=== PATIENT | female | born 1980 | race Caucasian/White ===

== ENCOUNTER 2017-08-18 10:28 | Inpatient (IN) | payer OTHER ==
[2017-08-18] MEDS: ONDANSETRON 4 MG INJ IV (12:25)
[2017-08-18] MEDS ORDERED: ZOLPIDEM 5 MG TAB PO (12:30)
[2017-08-18] MEDS ORDERED: GLUCAGON 1 MG INJ IM (13:00)
[2017-08-18] MEDS ORDERED: DEXTROSE 50% 50 ML SYRINGE IV (13:00)
[2017-08-18] MEDS ORDERED: GLUCOSE GEL 15 GRAM TUBE PO (13:00)
[2017-08-18] MEDS ORDERED: GLUCOSE GEL 15 GRAM TUBE BUCCAL (13:00)
[2017-08-18 13:20] LABS: ADD MAN DIFF? NO
[2017-08-18 13:23] LABS: BASOPHIL # 0.1 10^3/ul (0.0-0.1); BASOPHILS % 1.1 % (0.0-2.0); EOSINOPHILS # 0.1 10^3/ul (0.0-0.5); EOSINOPHILS % 1.5 % (0.0-7.0); HEMATOCRIT 29.2 % (37.0-47.0); HEMOGLOBIN 9.3 g/dl (12.0-16.0); LYMPHOCYTES # 1.2 10^3/ul (0.8-2.9); LYMPHOCYTES % 27.2 % (15.0-51.0); MEAN CORPUSCULAR HEMOGLOBIN 24.6 pg (29.0-33.0); MEAN CORPUSCULAR HGB CONC 31.8 g/dl (32.0-37.0); MEAN CORPUSCULAR VOLUME 77.2 fl (82.0-101.0); MEAN PLATELET VOLUME 9.1 fl (7.4-10.4); MONOCYTE # 0.2 10^3/ul (0.3-0.9); MONOCYTES % 5.3 % (0.0-11.0); NEUTROPHIL # 2.9 10^3/ul (1.6-7.5); NEUTROPHILS % 64.7 % (39.0-77.0); PLATELET COUNT 209 10^3/UL (140-415); RED BLOOD COUNT 3.78 10^6/ul (4.20-5.40); RED CELL DISTRIBUTION WIDTH 13.9 % (11.5-14.5)
[2017-08-18 13:23] LABS: WHITE BLOOD COUNT 4.5 10^3/ul (4.8-10.8)
[2017-08-18 13:29] LABS: POSITIVE DIFF @See below
[2017-08-18 13:34] LABS: HEMOGLOBIN A1C 11.8 % (0-5.9)
[2017-08-18 13:48] LABS: ALANINE AMINOTRANSFERASE 25 IU/L (13-69); ALBUMIN 3.2 g/dl (3.3-4.9); ALBUMIN/GLOBULIN RATIO 0.94; ALKALINE PHOSPHATASE 102 IU/L (42-121); ANION GAP 14 (8-16); ASPARTATE AMINO TRANSFERASE 32 IU/L (15-46); BILIRUBIN,INDIRECT 0.2 mg/dl (0-1.1); BILIRUBIN,TOTAL 0.2 mg/dl (0.2-1.3); BLOOD UREA NITROGEN 11 mg/dl (7-20); CALCIUM 8.5 mg/dl (8.4-10.2); CARBON DIOXIDE 25 mmol/L (21-31); CHLORIDE 100 mmol/L (97-110); GLUCOSE 310 mg/dl (70-220); HDL CHOLESTEROL 54 mg/dl (34-88); PHOSPHORUS 3.2 mg/dl (2.5-4.9); POTASSIUM 3.9 mmol/L (3.5-5.1); SODIUM 135 mmol/L (135-144); TOTAL PROTEIN 6.6 g/dl (6.1-8.1); TRIGLYCERIDES 426 mg/dl (0-149)
[2017-08-18] MEDS: DOCUSATE SODIUM 100 MG CAP PO ×2 (13:56→21:01)
[2017-08-18 13:57] LABS: CHOLESTEROL 382 mg/dl (100-200); LDL CHOLESTEROL,CALCULATED 243 mg/dl
[2017-08-18] MEDS: SOD CHLORIDE 0.9% 1,000 ML IV (13:57)
[2017-08-18] MEDS: PREGABALIN 75 MG CAP PO ×2 (13:57→21:01)
[2017-08-18] MEDS: FAMOTIDINE 20 MG INJ IV ×2 (13:57→21:01)
[2017-08-18] MEDS: INSULIN GLARGINE [LANtus] 3 ML PEN SC (14:38)
[2017-08-18] MEDS: INSULIN ASPART [NOVOLOG] 3 ML PEN SC ×2 (17:55→19:11)
[2017-08-18] MEDS ORDERED: INSULIN GLARGINE [LANtus] 3 ML PEN SC (20:00)
[2017-08-19] MEDS: HYDROCODONE/APAP (5/325) TAB PO ×2 (03:51→07:51)
[2017-08-19] MEDS: INSULIN ASPART [NOVOLOG] 3 ML PEN SC ×6 (07:59→20:40)
[2017-08-19] MEDS: INSULIN GLARGINE [LANtus] 3 ML PEN SC ×2 (07:59→12:32)
[2017-08-19 08:46] LABS: ADD MAN DIFF? NO
[2017-08-19 08:56] LABS: WHITE BLOOD COUNT 4.9 10^3/ul (4.8-10.8)
[2017-08-19 08:56] LABS: BASOPHIL # 0.1 10^3/ul (0.0-0.1); EOSINOPHILS # 0.1 10^3/ul (0.0-0.5); EOSINOPHILS % 2.5 % (0.0-7.0); HEMATOCRIT 28.5 % (37.0-47.0); HEMOGLOBIN 9.1 g/dl (12.0-16.0); LYMPHOCYTES # 1.3 10^3/ul (0.8-2.9); LYMPHOCYTES % 27.2 % (15.0-51.0); MEAN CORPUSCULAR HEMOGLOBIN 24.6 pg (29.0-33.0); MEAN CORPUSCULAR HGB CONC 31.9 g/dl (32.0-37.0); MEAN PLATELET VOLUME 9.1 fl (7.4-10.4); MONOCYTE # 0.2 10^3/ul (0.3-0.9); MONOCYTES % 4.7 % (0.0-11.0); NEUTROPHIL # 3.1 10^3/ul (1.6-7.5); NEUTROPHILS % 64.4 % (39.0-77.0); PLATELET COUNT 341 10^3/UL (140-415); RED CELL DISTRIBUTION WIDTH 14.2 % (11.5-14.5)
[2017-08-19] MEDS: DOCUSATE SODIUM 100 MG CAP PO ×2 (08:59→20:40)
[2017-08-19] MEDS: FAMOTIDINE 20 MG INJ IV ×2 (09:00→20:40)
[2017-08-19] MEDS: ENOXAPARIN 40 MG/0.4 ML SYG SC (09:12)
[2017-08-19 09:18] LABS: ANION GAP 11 (8-16); BLOOD UREA NITROGEN 11 mg/dl (7-20); CALCIUM 8.3 mg/dl (8.4-10.2); CARBON DIOXIDE 27 mmol/L (21-31); CHLORIDE 101 mmol/L (97-110); CREATININE 0.46 mg/dl (0.44-1.00); GLUCOSE 259 mg/dl (70-220); POTASSIUM 3.5 mmol/L (3.5-5.1); SODIUM 135 mmol/L (135-144)
[2017-08-19] MEDS: PREGABALIN 75 MG CAP PO (09:40)
[2017-08-19] MEDS: CYCLOBENZAPRINE 10 MG TAB PO ×2 (12:36→20:40)
[2017-08-19] MEDS: GABAPENTIN 300 MG CAP PO ×2 (12:36→20:40)
[2017-08-19 14:36] LABS: ADD UMIC YES; UR ASCORBIC ACID NEGATIVE (NEGATIVE); UR BACTERIA FEW /HPF (NONE SEEN); UR BILIRUBIN (Dip) NEGATIVE (NEGATIVE); UR BLOOD (Dip) 3+ mg/dL (NEGATIVE); UR CLARITY CLOUDY (CLEAR); UR COLOR RED (YELLOW); UR GLUCOSE (Dip) 3+ mg/dL (NEGATIVE); UR KETONES (Dip) TRACE mg/dL (NEGATIVE); UR LEUKOCYTE ESTERASE (Dip) NEGATIVE Leu/ul (NEGATIVE); UR MUCUS FEW /HPF (NONE SEEN); UR NITRITE (Dip) NEGATIVE (NEGATIVE); UR RBC > 182 /HPF (0-5); UR SPECIFIC GRAVITY (Dip) 1.032 (1.003-1.030); UR SQUAMOUS EPITHELIAL CELL FEW /HPF (FEW); UR TOTAL PROTEIN (Dip) 3+ mg/dl (NEGATIVE); UR UROBILINOGEN (Dip) NEGATIVE (NEGATIVE); UR WBC > 182 /HPF (0-5)
[2017-08-19 15:39] LABS: FREE T4 (FREE THYROXINE) < 0.07 ng/dl (0.79-2.35)
[2017-08-19] MEDS: OXYCODONE/ACETAMINOPHEN (5/325) TAB PO (16:03)
[2017-08-20] MEDS: LEVOTHYROXINE 25 MCG TAB PO (06:01)
[2017-08-20 06:45] LABS: ADD MAN DIFF? NO
[2017-08-20 06:56] LABS: BASOPHIL # 0.1 10^3/ul (0.0-0.1); BASOPHILS % 1.2 % (0.0-2.0); EOSINOPHILS # 0.1 10^3/ul (0.0-0.5); EOSINOPHILS % 2.9 % (0.0-7.0); HEMATOCRIT 29.5 % (37.0-47.0); HEMOGLOBIN 9.3 g/dl (12.0-16.0); LYMPHOCYTES % 41.4 % (15.0-51.0); MEAN CORPUSCULAR HEMOGLOBIN 24.8 pg (29.0-33.0); MEAN CORPUSCULAR HGB CONC 31.5 g/dl (32.0-37.0); MEAN CORPUSCULAR VOLUME 78.7 fl (82.0-101.0); MEAN PLATELET VOLUME 8.9 fl (7.4-10.4); MONOCYTE # 0.4 10^3/ul (0.3-0.9); MONOCYTES % 8.2 % (0.0-11.0); NEUTROPHIL # 2.2 10^3/ul (1.6-7.5); NEUTROPHILS % 46.1 % (39.0-77.0); PLATELET COUNT 309 10^3/UL (140-415); RED BLOOD COUNT 3.75 10^6/ul (4.20-5.40); RED CELL DISTRIBUTION WIDTH 14.5 % (11.5-14.5)
[2017-08-20 06:56] LABS: WHITE BLOOD COUNT 4.9 10^3/ul (4.8-10.8)
[2017-08-20 07:17] LABS: ANION GAP 6 (8-16); BLOOD UREA NITROGEN 11 mg/dl (7-20); CALCIUM 8.2 mg/dl (8.4-10.2); CARBON DIOXIDE 33 mmol/L (21-31); CHLORIDE 102 mmol/L (97-110); GLUCOSE 90 mg/dl (70-220); MAGNESIUM 1.9 mg/dl (1.7-2.5); PHOSPHORUS 3.8 mg/dl (2.5-4.9); POTASSIUM 3.5 mmol/L (3.5-5.1); SODIUM 137 mmol/L (135-144)
[2017-08-20] MEDS: INSULIN ASPART [NOVOLOG] 3 ML PEN SC ×7 (07:42→20:36)
[2017-08-20] MEDS: INSULIN GLARGINE [LANtus] 3 ML PEN SC (08:03)
[2017-08-20] MEDS: FAMOTIDINE 20 MG INJ IV ×2 (08:41→20:27)
[2017-08-20] MEDS: OXYCODONE/ACETAMINOPHEN (5/325) TAB PO ×2 (08:41→18:27)
[2017-08-20] MEDS: GABAPENTIN 300 MG CAP PO ×3 (08:41→20:27)
[2017-08-20] MEDS: CYCLOBENZAPRINE 10 MG TAB PO (08:41)
[2017-08-20] MEDS: DOCUSATE SODIUM 100 MG CAP PO ×2 (08:41→20:27)
[2017-08-20] MEDS: ENOXAPARIN 40 MG/0.4 ML SYG SC (08:51)
[2017-08-20] MEDS: CARISOPRODOL 350 MG TAB PO ×2 (13:50→20:27)
[2017-08-20] MEDS: MAGNESIUM HYDROXIDE 30ML CUP PO (23:38)
[2017-08-21] MEDS: OXYCODONE/ACETAMINOPHEN (5/325) TAB PO (04:07)
[2017-08-21] MEDS: AMITRIPTYLINE 25 MG TAB PO (06:00)
[2017-08-21] MEDS: LEVOTHYROXINE 25 MCG TAB PO (06:09)
[2017-08-21] MEDS: HYDROCODONE/APAP (5/325) TAB PO (07:37)
[2017-08-21] MEDS: DOCUSATE SODIUM 100 MG CAP PO ×2 (08:04→21:12)
[2017-08-21] MEDS: CARISOPRODOL 350 MG TAB PO ×2 (08:05→12:10)
[2017-08-21] MEDS: GABAPENTIN 300 MG CAP PO ×2 (08:05→12:10)
[2017-08-21] MEDS: INSULIN GLARGINE [LANtus] 3 ML PEN SC (08:06)
[2017-08-21] MEDS: INSULIN ASPART [NOVOLOG] 3 ML PEN SC ×7 (08:07→21:18)
[2017-08-21] MEDS: ENOXAPARIN 40 MG/0.4 ML SYG SC (08:08)
[2017-08-21] MEDS: FAMOTIDINE 20 MG INJ IV ×2 (08:09→21:12)
[2017-08-21 08:11] LABS: ADD MAN DIFF? NO
[2017-08-21 08:18] LABS: BASOPHILS % 0.8 % (0.0-2.0); EOSINOPHILS # 0.1 10^3/ul (0.0-0.5); EOSINOPHILS % 1.6 % (0.0-7.0); HEMATOCRIT 29.4 % (37.0-47.0); HEMOGLOBIN 9.2 g/dl (12.0-16.0); LYMPHOCYTES # 1.3 10^3/ul (0.8-2.9); LYMPHOCYTES % 26.9 % (15.0-51.0); MEAN CORPUSCULAR HEMOGLOBIN 24.6 pg (29.0-33.0); MEAN CORPUSCULAR HGB CONC 31.3 g/dl (32.0-37.0); MEAN CORPUSCULAR VOLUME 78.6 fl (82.0-101.0); MEAN PLATELET VOLUME 8.5 fl (7.4-10.4); MONOCYTE # 0.3 10^3/ul (0.3-0.9); MONOCYTES % 5.6 % (0.0-11.0); NEUTROPHIL # 3.2 10^3/ul (1.6-7.5); NEUTROPHILS % 64.7 % (39.0-77.0); PLATELET COUNT 319 10^3/UL (140-415); RED BLOOD COUNT 3.74 10^6/ul (4.20-5.40); RED CELL DISTRIBUTION WIDTH 14.1 % (11.5-14.5)
[2017-08-21 08:42] LABS: ANION GAP 12 (8-16); BLOOD UREA NITROGEN 14 mg/dl (7-20); CALCIUM 8.3 mg/dl (8.4-10.2); CARBON DIOXIDE 30 mmol/L (21-31); CHLORIDE 98 mmol/L (97-110); CREATININE 0.43 mg/dl (0.44-1.00); GLUCOSE 265 mg/dl (70-220); MAGNESIUM 2.1 mg/dl (1.7-2.5); PHOSPHORUS 2.8 mg/dl (2.5-4.9); POTASSIUM 4.5 mmol/L (3.5-5.1); SODIUM 135 mmol/L (135-144)
[2017-08-21] MEDS: KETOROLAC 30 MG INJ IV (23:36)
[2017-08-22] MEDS: ACETAMINOPHEN 325 MG TAB PO (03:14)
[2017-08-22] MEDS: OXYCODONE/ACETAMINOPHEN (5/325) TAB PO ×2 (03:56→15:18)
[2017-08-22] MEDS: LEVOTHYROXINE 25 MCG TAB PO (06:18)
[2017-08-22] MEDS: MAGNESIUM HYDROXIDE 30ML CUP PO (06:21)
[2017-08-22] MEDS: DOCUSATE SODIUM 100 MG CAP PO ×2 (08:32→21:01)
[2017-08-22] MEDS: FAMOTIDINE 20 MG INJ IV ×2 (08:32→21:02)
[2017-08-22 08:35] LABS: ALBUMIN 3.4 g/dl (3.3-4.9); ANION GAP 12 (8-16); BLOOD UREA NITROGEN 13 mg/dl (7-20); CALCIUM 8.8 mg/dl (8.4-10.2); CARBON DIOXIDE 29 mmol/L (21-31); CHLORIDE 96 mmol/L (97-110); CREATININE 0.47 mg/dl (0.44-1.00); GLUCOSE 251 mg/dl (70-220); MAGNESIUM 1.9 mg/dl (1.7-2.5); PHOSPHORUS 3.5 mg/dl (2.5-4.9); POTASSIUM 4.4 mmol/L (3.5-5.1); SODIUM 133 mmol/L (135-144)
[2017-08-22] MEDS: ENOXAPARIN 40 MG/0.4 ML SYG SC (08:40)
[2017-08-22] MEDS: INSULIN ASPART [NOVOLOG] 3 ML PEN SC ×7 (08:40→21:00)
[2017-08-22] MEDS: INSULIN GLARGINE [LANtus] 3 ML PEN SC (08:40)
[2017-08-22] MEDS: METHADONE (1 MG/ML 5 ML PO UD SYG) PO ×2 (12:04→21:02)
[2017-08-22] MEDS: GABAPENTIN 100 MG CAP PO (21:01)
[2017-08-22] MEDS: traZODone 50 MG TAB PO (21:02)
[2017-08-23] MEDS: OXYCODONE/ACETAMINOPHEN (5/325) TAB PO ×2 (05:43→10:37)
[2017-08-23] MEDS: LEVOTHYROXINE 25 MCG TAB PO (05:43)
[2017-08-23 07:41] LABS: ALBUMIN 3.2 g/dl (3.3-4.9); ANION GAP 9 (8-16); BLOOD UREA NITROGEN 9 mg/dl (7-20); CALCIUM 8.4 mg/dl (8.4-10.2); CARBON DIOXIDE 31 mmol/L (21-31); CHLORIDE 99 mmol/L (97-110); CREATININE 0.54 mg/dl (0.44-1.00); GLUCOSE 184 mg/dl (70-220); MAGNESIUM 1.8 mg/dl (1.7-2.5); PHOSPHORUS 3.8 mg/dl (2.5-4.9); POTASSIUM 4.4 mmol/L (3.5-5.1); SODIUM 135 mmol/L (135-144)
[2017-08-23] MEDS: INSULIN ASPART [NOVOLOG] 3 ML PEN SC ×7 (08:09→21:00)
[2017-08-23] MEDS: INSULIN GLARGINE [LANtus] 3 ML PEN SC (08:10)
[2017-08-23] MEDS: DOCUSATE SODIUM 100 MG CAP PO (09:00)
[2017-08-23] MEDS: GABAPENTIN 100 MG CAP PO ×3 (09:00→21:36)
[2017-08-23] MEDS: FAMOTIDINE 20 MG INJ IV (09:00)
[2017-08-23] MEDS: METHADONE (1 MG/ML 5 ML PO UD SYG) PO ×3 (09:01→21:00)
[2017-08-23] MEDS: ENOXAPARIN 40 MG/0.4 ML SYG SC (09:07)
[2017-08-23] MEDS: BISACODYL 10 MG SUPP PR (12:39)
[2017-08-23] MEDS: morphine 2 MG INJ IV (18:27)
[2017-08-23] MEDS: SENNA/DOCUSATE NA (8.6MG/50MG) TAB PO (21:00)
[2017-08-23] MEDS: traZODone 50 MG TAB PO (21:00)
[2017-08-24] MEDS: OXYCODONE/ACETAMINOPHEN (5/325) TAB PO (00:22)
[2017-08-24] MEDS: ONDANSETRON 4 MG INJ IV (02:41)
[2017-08-24] MEDS: morphine 2 MG INJ IV ×3 (04:04→23:10)
[2017-08-24] MEDS: LEVOTHYROXINE 25 MCG TAB PO (06:00)
[2017-08-24 06:40] LABS: ALBUMIN 3.3 g/dl (3.3-4.9); ANION GAP 10 (8-16); BLOOD UREA NITROGEN 9 mg/dl (7-20); CALCIUM 8.7 mg/dl (8.4-10.2); CARBON DIOXIDE 32 mmol/L (21-31); CHLORIDE 99 mmol/L (97-110); CREATININE 0.47 mg/dl (0.44-1.00); GLUCOSE 103 mg/dl (70-220); MAGNESIUM 1.9 mg/dl (1.7-2.5); PHOSPHORUS 4.2 mg/dl (2.5-4.9); SODIUM 137 mmol/L (135-144)
[2017-08-24] MEDS: INSULIN ASPART [NOVOLOG] 3 ML PEN SC ×7 (08:15→21:00)
[2017-08-24] MEDS: METHADONE (1 MG/ML 5 ML PO UD SYG) PO ×4 (09:00→21:00)
[2017-08-24] MEDS: MAGNESIUM HYDROXIDE 30ML CUP PO (09:00)
[2017-08-24] MEDS: ENOXAPARIN 40 MG/0.4 ML SYG SC (09:00)
[2017-08-24] MEDS: SENNA/DOCUSATE NA (8.6MG/50MG) TAB PO ×2 (09:00→21:00)
[2017-08-24] MEDS: FAMOTIDINE 20 MG TAB PO (09:00)
[2017-08-24] MEDS: GABAPENTIN 100 MG CAP PO ×3 (09:23→21:00)
[2017-08-24] MEDS: INSULIN GLARGINE [LANtus] 3 ML PEN SC (09:28)
[2017-08-24 17:23] LABS: IRON 19 ug/dl (35-150)
[2017-08-24 17:33] LABS: % IRON SATURATION 6 % SAT (22-52); TOTAL IRON BINDING CAPACITY 341 ug/dl (241-421)
[2017-08-24] MEDS: traZODone 50 MG TAB PO (21:00)
[2017-08-25] MEDS: METHADONE (1 MG/ML 5 ML PO UD SYG) PO ×4 (01:40→20:50)
[2017-08-25] MEDS: LEVOTHYROXINE 25 MCG TAB PO (06:00)
[2017-08-25] MEDS: INSULIN GLARGINE [LANtus] 3 ML PEN SC (08:16)
[2017-08-25] MEDS: INSULIN ASPART [NOVOLOG] 3 ML PEN SC ×7 (08:16→20:48)
[2017-08-25] MEDS: ENOXAPARIN 40 MG/0.4 ML SYG SC (08:19)
[2017-08-25] MEDS: SENNA/DOCUSATE NA (8.6MG/50MG) TAB PO ×2 (09:00→20:46)
[2017-08-25] MEDS: GABAPENTIN 100 MG CAP PO (09:00)
[2017-08-25] MEDS: FAMOTIDINE 20 MG TAB PO (09:00)
[2017-08-25] MEDS: MAGNESIUM HYDROXIDE 30ML CUP PO (09:00)
[2017-08-25 09:08] LABS: CK-MB 1.07 ng/ml (0.0-2.4)
[2017-08-25] MEDS: LEVOTHYROXINE 50 MCG TAB PO (10:22)
[2017-08-25] MEDS: morphine 2 MG INJ IV (10:40)
[2017-08-25] MEDS: CHOLECALCIFEROL 2,000 UNIT CAP PO (10:40)
[2017-08-25 12:43] LABS: PROTIME 12.2 Sec (11.9-14.9)
[2017-08-25 12:44] LABS: PARTIAL THROMBOPLASTIN TIME 24.4 Sec (25.0-35.0)
[2017-08-25] MEDS: PREGABALIN 50 MG CAP PO ×2 (12:51→20:46)
[2017-08-25] MEDS ORDERED: LEVOTHYROXINE 500 MCG VIAL IV (15:00)
[2017-08-25] MEDS ORDERED: ERGOCALCIFEROL 50,000 UNIT CAP PO (15:30)
[2017-08-25 15:37] LABS: CREATINE KINASE 247 IU/L (23-200)
[2017-08-25 15:50] LABS: CK INDEX 0.4
[2017-08-25 15:53] LABS: TROPONIN-I < 0.012 ng/ml (0.00-0.12)
[2017-08-25] MEDS: ERGOCALCIFEROL 50,000 UNIT CAP PO (17:00)
[2017-08-25] MEDS: SOD FERRIC GLUC COMPLX 125 MG in SOD CHLORIDE 0.9% 100 ML IVPB (17:02)
[2017-08-25] MEDS: LEVOTHYROXINE 200 MCG VIAL IV (17:06)
[2017-08-25] MEDS: metFORMIN 500 MG TAB PO (17:07)
[2017-08-25] MEDS: traZODone 50 MG TAB PO (20:46)
[2017-08-26] MEDS: OXYCODONE/ACETAMINOPHEN (5/325) TAB PO (00:27)
[2017-08-26] MEDS: morphine 2 MG INJ IV ×2 (01:29→17:14)
[2017-08-26] MEDS: LEVOTHYROXINE 100 MCG TAB PO (02:48)
[2017-08-26] MEDS ORDERED: LEVOTHYROXINE 25 MCG TAB PO (06:00)
[2017-08-26 06:06] LABS: ADD MAN DIFF? NO
[2017-08-26 06:10] LABS: WHITE BLOOD COUNT 4.3 10^3/ul (4.8-10.8)
[2017-08-26 06:10] LABS: BASOPHIL # 0.1 10^3/ul (0.0-0.1); BASOPHILS % 1.2 % (0.0-2.0); EOSINOPHILS # 0.1 10^3/ul (0.0-0.5); EOSINOPHILS % 2.1 % (0.0-7.0); HEMATOCRIT 28.6 % (37.0-47.0); HEMOGLOBIN 8.8 g/dl (12.0-16.0); LYMPHOCYTES # 1.8 10^3/ul (0.8-2.9); LYMPHOCYTES % 41.4 % (15.0-51.0); MEAN CORPUSCULAR HEMOGLOBIN 23.8 pg (29.0-33.0); MEAN CORPUSCULAR HGB CONC 30.8 g/dl (32.0-37.0); MEAN CORPUSCULAR VOLUME 77.5 fl (82.0-101.0); MEAN PLATELET VOLUME 8.1 fl (7.4-10.4); MONOCYTE # 0.4 10^3/ul (0.3-0.9); MONOCYTES % 9.1 % (0.0-11.0); PLATELET COUNT 355 10^3/UL (140-415); RED BLOOD COUNT 3.69 10^6/ul (4.20-5.40); RED CELL DISTRIBUTION WIDTH 13.8 % (11.5-14.5)
[2017-08-26 06:30] LABS: ANION GAP 13 (8-16); BLOOD UREA NITROGEN 12 mg/dl (7-20); CALCIUM 8.6 mg/dl (8.4-10.2); CARBON DIOXIDE 28 mmol/L (21-31); CHLORIDE 100 mmol/L (97-110); GLUCOSE 90 mg/dl (70-220); MAGNESIUM 2.1 mg/dl (1.7-2.5); PHOSPHORUS 3.9 mg/dl (2.5-4.9); SODIUM 137 mmol/L (135-144)
[2017-08-26 07:49] LABS: HEPATITIS B SURFACE ANTIGEN NEGATIVE (NEGATIVE)
[2017-08-26 08:06] LABS: HEPATITIS C VIRAL ANTIBODY NEGATIVE (NEGATIVE)
[2017-08-26] MEDS: INSULIN ASPART [NOVOLOG] 3 ML PEN SC ×7 (08:15→21:00)
[2017-08-26] MEDS: LEVOTHYROXINE 200 MCG VIAL IV (08:27)
[2017-08-26] MEDS: INSULIN GLARGINE [LANtus] 3 ML PEN SC (08:35)
[2017-08-26] MEDS: FAMOTIDINE 20 MG TAB PO (09:00)
[2017-08-26] MEDS: SENNA/DOCUSATE NA (8.6MG/50MG) TAB PO ×3 (09:00→21:00)
[2017-08-26] MEDS: ENOXAPARIN 40 MG/0.4 ML SYG SC (09:00)
[2017-08-26] MEDS: METHADONE (1 MG/ML 5 ML PO UD SYG) PO (09:00)
[2017-08-26] MEDS: MAGNESIUM HYDROXIDE 30ML CUP PO ×2 (09:00→13:44)
[2017-08-26] MEDS: PREGABALIN 50 MG CAP PO ×3 (09:00→21:01)
[2017-08-26] MEDS: CHOLECALCIFEROL 2,000 UNIT CAP PO ×2 (09:00→13:43)
[2017-08-26] MEDS: LIDOCAINE 1% (MDV) 20 ML INJ (10:36)
[2017-08-26 12:40] LABS: CSF RBC 1000 /uL (0-0); CSF WBC 1 /cmm (0-10)
[2017-08-26 12:41] LABS: GLUCOSE,CSF 49 mg/dl (50-80)
[2017-08-26 12:41] LABS: TOTAL PROTEIN,CSF 162 mg/dl (12-60)
[2017-08-26 13:06] LABS: CSF CLARITY CLEAR
[2017-08-26 13:06] LABS: CSF COLOR COLORLESS
[2017-08-26 13:07] LABS: CSF#TUBES REC'D 4
[2017-08-26 13:09] LABS: CSF#TUBE COUNT TUBE#4
[2017-08-26] MEDS: BISACODYL 10 MG SUPP PR (13:44)
[2017-08-26] MEDS ORDERED: IMMUNE GLOBULIN (HUMAN) 6 GM INJ IV (16:30)
[2017-08-26] MEDS: metFORMIN 500 MG TAB PO (17:13)
[2017-08-26] MEDS: SOD FERRIC GLUC COMPLX 125 MG in SOD CHLORIDE 0.9% 100 ML IVPB (17:13)
[2017-08-26 20:37] LABS: RAPID PLASMA REAGIN NONREACTIVE (NR)
[2017-08-26] MEDS: traZODone 50 MG TAB PO (21:00)
[2017-08-26] MEDS: WATER STERILE FOR IV (21:44)
[2017-08-26] MEDS: EVAC CONTAINER IV (21:44)
[2017-08-26] MEDS: IMMUNE GLOBULIN IV (21:44)
[2017-08-27] MEDS: morphine 2 MG INJ IV ×2 (01:07→17:35)
[2017-08-27] MEDS: LEVOTHYROXINE 100 MCG TAB PO (05:29)
[2017-08-27 06:12] LABS: ADD MAN DIFF? NO
[2017-08-27 06:24] LABS: BASOPHILS % 0.8 % (0.0-2.0); EOSINOPHILS # 0.1 10^3/ul (0.0-0.5); EOSINOPHILS % 1.6 % (0.0-7.0); HEMATOCRIT 27.8 % (37.0-47.0); HEMOGLOBIN 8.6 g/dl (12.0-16.0); LYMPHOCYTES # 0.9 10^3/ul (0.8-2.9); LYMPHOCYTES % 17.8 % (15.0-51.0); MEAN CORPUSCULAR HEMOGLOBIN 24.5 pg (29.0-33.0); MEAN CORPUSCULAR HGB CONC 30.9 g/dl (32.0-37.0); MEAN CORPUSCULAR VOLUME 79.2 fl (82.0-101.0); MEAN PLATELET VOLUME 8.6 fl (7.4-10.4); MONOCYTE # 0.4 10^3/ul (0.3-0.9); MONOCYTES % 7.4 % (0.0-11.0); NEUTROPHIL # 3.7 10^3/ul (1.6-7.5); PLATELET COUNT 328 10^3/UL (140-415); RED BLOOD COUNT 3.51 10^6/ul (4.20-5.40); RED CELL DISTRIBUTION WIDTH 14.2 % (11.5-14.5)
[2017-08-27 06:24] LABS: WHITE BLOOD COUNT 5.2 10^3/ul (4.8-10.8)
[2017-08-27] MEDS: INSULIN ASPART [NOVOLOG] 3 ML PEN SC ×4 (08:15→20:32)
[2017-08-27] MEDS: ERGOCALCIFEROL 50,000 UNIT CAP PO (08:35)
[2017-08-27] MEDS: SENNA/DOCUSATE NA (8.6MG/50MG) TAB PO ×2 (08:36→20:31)
[2017-08-27] MEDS: FAMOTIDINE 20 MG TAB PO (08:36)
[2017-08-27] MEDS: CHOLECALCIFEROL 2,000 UNIT CAP PO (08:36)
[2017-08-27] MEDS: PREGABALIN 50 MG CAP PO ×2 (08:36→20:31)
[2017-08-27] MEDS: MAGNESIUM HYDROXIDE 30ML CUP PO (08:37)
[2017-08-27] MEDS: INSULIN GLARGINE [LANtus] 3 ML PEN SC (08:44)
[2017-08-27] MEDS: ENOXAPARIN 40 MG/0.4 ML SYG SC (08:44)
[2017-08-27] MEDS: metFORMIN 500 MG TAB PO ×2 (08:45→17:34)
[2017-08-27] MEDS: NA PHOSPHATE/BIPHOS 133 ML ENEMA PR (10:37)
[2017-08-27] MEDS: REPAGLINIDE 2 MG TAB PO ×2 (12:03→17:33)
[2017-08-27] MEDS: SUCRALFATE (100 MG/ML) 10ML CUP PO (13:52)
[2017-08-27] MEDS: SOD FERRIC GLUC COMPLX 125 MG in SOD CHLORIDE 0.9% 100 ML IVPB (17:34)
[2017-08-27] MEDS: traZODone 50 MG TAB PO (20:31)
[2017-08-27] MEDS: OXYCODONE/ACETAMINOPHEN (10/325) TAB PO (20:31)
[2017-08-27] MEDS: EVAC CONTAINER IV (21:23)
[2017-08-27] MEDS: IMMUNE GLOBULIN IV (21:23)
[2017-08-27] MEDS: WATER STERILE FOR IV (21:23)
[2017-08-27] MEDS: METHADONE (1 MG/ML 5 ML PO UD SYG) PO (23:54)
[2017-08-28] MEDS: morphine 2 MG INJ IV ×3 (00:55→19:49)
[2017-08-28] MEDS: LEVOTHYROXINE 100 MCG TAB PO (05:16)
[2017-08-28 05:36] LABS: ADD MAN DIFF? NO
[2017-08-28 05:40] LABS: BASOPHIL # 0.1 10^3/ul (0.0-0.1); BASOPHILS % 1.5 % (0.0-2.0); EOSINOPHILS # 0.1 10^3/ul (0.0-0.5); EOSINOPHILS % 2.3 % (0.0-7.0); HEMATOCRIT 26.3 % (37.0-47.0); HEMOGLOBIN 8.3 g/dl (12.0-16.0); LYMPHOCYTES % 25.8 % (15.0-51.0); MEAN CORPUSCULAR HEMOGLOBIN 24.6 pg (29.0-33.0); MEAN CORPUSCULAR HGB CONC 31.6 g/dl (32.0-37.0); MEAN PLATELET VOLUME 8.4 fl (7.4-10.4); MONOCYTE # 0.4 10^3/ul (0.3-0.9); NEUTROPHIL # 2.4 10^3/ul (1.6-7.5); NEUTROPHILS % 60.4 % (39.0-77.0); PLATELET COUNT 313 10^3/UL (140-415); RED BLOOD COUNT 3.37 10^6/ul (4.20-5.40); RED CELL DISTRIBUTION WIDTH 14.1 % (11.5-14.5)
[2017-08-28] MEDS: CHOLECALCIFEROL 2,000 UNIT CAP PO (08:07)
[2017-08-28] MEDS: SENNA/DOCUSATE NA (8.6MG/50MG) TAB PO ×2 (08:07→21:19)
[2017-08-28] MEDS: FAMOTIDINE 20 MG TAB PO (08:07)
[2017-08-28] MEDS: PREGABALIN 50 MG CAP PO ×2 (08:07→21:19)
[2017-08-28] MEDS: metFORMIN 500 MG TAB PO ×2 (08:07→17:12)
[2017-08-28] MEDS: REPAGLINIDE 2 MG TAB PO ×3 (08:07→17:12)
[2017-08-28] MEDS: INSULIN ASPART [NOVOLOG] 3 ML PEN SC ×4 (08:08→21:00)
[2017-08-28] MEDS: INSULIN GLARGINE [LANtus] 3 ML PEN SC (08:09)
[2017-08-28] MEDS: ENOXAPARIN 40 MG/0.4 ML SYG SC (08:10)
[2017-08-28] MEDS: MAGNESIUM HYDROXIDE 30ML CUP PO (08:18)
[2017-08-28] MEDS: ONDANSETRON 4 MG INJ IV (13:12)
[2017-08-28] MEDS: hydrALAzine 20 MG INJ IV (13:13)
[2017-08-28] MEDS: SOD FERRIC GLUC COMPLX 125 MG in SOD CHLORIDE 0.9% 100 ML IVPB (17:12)
[2017-08-28] MEDS: WATER STERILE FOR IV (21:18)
[2017-08-28] MEDS: EVAC CONTAINER IV (21:18)
[2017-08-28] MEDS: IMMUNE GLOBULIN IV (21:18)
[2017-08-28] MEDS: traZODone 50 MG TAB PO (21:19)
[2017-08-29] MEDS: morphine 2 MG INJ IV ×4 (00:14→18:35)
[2017-08-29 05:39] LABS: ADD MAN DIFF? NO
[2017-08-29 05:43] LABS: WHITE BLOOD COUNT 3.8 10^3/ul (4.8-10.8)
[2017-08-29 05:43] LABS: BASOPHIL # 0.1 10^3/ul (0.0-0.1); BASOPHILS % 1.6 % (0.0-2.0); EOSINOPHILS # 0.1 10^3/ul (0.0-0.5); EOSINOPHILS % 1.6 % (0.0-7.0); HEMATOCRIT 28.1 % (37.0-47.0); HEMOGLOBIN 8.8 g/dl (12.0-16.0); LYMPHOCYTES # 0.7 10^3/ul (0.8-2.9); LYMPHOCYTES % 18.6 % (15.0-51.0); MEAN CORPUSCULAR HEMOGLOBIN 24.6 pg (29.0-33.0); MEAN CORPUSCULAR HGB CONC 31.3 g/dl (32.0-37.0); MEAN CORPUSCULAR VOLUME 78.5 fl (82.0-101.0); MEAN PLATELET VOLUME 8.2 fl (7.4-10.4); MONOCYTE # 0.4 10^3/ul (0.3-0.9); MONOCYTES % 9.4 % (0.0-11.0); NEUTROPHIL # 2.6 10^3/ul (1.6-7.5); NEUTROPHILS % 68.3 % (39.0-77.0); PLATELET COUNT 297 10^3/UL (140-415); RED BLOOD COUNT 3.58 10^6/ul (4.20-5.40); RED CELL DISTRIBUTION WIDTH 14.5 % (11.5-14.5)
[2017-08-29 06:41] LABS: ANION GAP 13 (8-16); BLOOD UREA NITROGEN 5 mg/dl (7-20); CALCIUM 8.9 mg/dl (8.4-10.2); CARBON DIOXIDE 27 mmol/L (21-31); CHLORIDE 102 mmol/L (97-110); CREATININE 0.51 mg/dl (0.44-1.00); GLUCOSE 72 mg/dl (70-220); PHOSPHORUS 4.6 mg/dl (2.5-4.9); POTASSIUM 4.1 mmol/L (3.5-5.1); SODIUM 138 mmol/L (135-144)
[2017-08-29] MEDS: INSULIN ASPART [NOVOLOG] 3 ML PEN SC ×4 (08:15→20:55)
[2017-08-29] MEDS: SENNA/DOCUSATE NA (8.6MG/50MG) TAB PO ×2 (08:40→20:46)
[2017-08-29] MEDS: FAMOTIDINE 20 MG TAB PO (08:40)
[2017-08-29] MEDS: LEVOTHYROXINE 100 MCG TAB PO (08:40)
[2017-08-29] MEDS: metFORMIN 500 MG TAB PO ×2 (08:40→17:38)
[2017-08-29] MEDS: PREGABALIN 50 MG CAP PO ×3 (08:40→20:46)
[2017-08-29] MEDS: REPAGLINIDE 2 MG TAB PO ×3 (08:41→17:37)
[2017-08-29] MEDS: CHOLECALCIFEROL 2,000 UNIT CAP PO (08:41)
[2017-08-29] MEDS: INSULIN GLARGINE [LANtus] 3 ML PEN SC (08:46)
[2017-08-29] MEDS: ENOXAPARIN 40 MG/0.4 ML SYG SC (08:47)
[2017-08-29] MEDS: MAGNESIUM HYDROXIDE 30ML CUP PO (08:53)
[2017-08-29] MEDS: SOD CHLORIDE 0.9% 100 ML (13:24)
[2017-08-29] MEDS: IODIXANOL LOCM 100 ML BTL (13:24)
[2017-08-29] MEDS: ACETAMINOPHEN 1000MG/100ML IV 100 ML IVPB (15:00)
[2017-08-29] MEDS: CYANOCOBALAMIN 1000 MCG INJ SC (15:43)
[2017-08-29 16:31] LABS: VDRL, CSF NON-REACTIVE
[2017-08-29] MEDS: SOD FERRIC GLUC COMPLX 125 MG in SOD CHLORIDE 0.9% 100 ML IVPB (17:41)
[2017-08-29] MEDS: IMMUN GLOB G(IGG) 10% 200 ML IV (20:43)
[2017-08-29] MEDS: traZODone 50 MG TAB PO (20:46)
[2017-08-29] MEDS: GLUCOSE GEL 15 GRAM TUBE PO ×2 (21:32→22:00)
[2017-08-29] MEDS: DEXTROSE 50% 50 ML SYRINGE IV (22:44)
[2017-08-30] MEDS: morphine 2 MG INJ IV ×6 (01:22→19:50)
[2017-08-30] MEDS: LEVOTHYROXINE 100 MCG TAB PO (05:56)
[2017-08-30 06:05] LABS: ADD MAN DIFF? NO
[2017-08-30 06:09] LABS: WHITE BLOOD COUNT 3.9 10^3/ul (4.8-10.8)
[2017-08-30 06:09] LABS: BASOPHIL # 0.1 10^3/ul (0.0-0.1); BASOPHILS % 1.3 % (0.0-2.0); EOSINOPHILS % 0.8 % (0.0-7.0); HEMATOCRIT 26.4 % (37.0-47.0); HEMOGLOBIN 8.2 g/dl (12.0-16.0); LYMPHOCYTES # 0.9 10^3/ul (0.8-2.9); LYMPHOCYTES % 23.5 % (15.0-51.0); MEAN CORPUSCULAR HEMOGLOBIN 24.8 pg (29.0-33.0); MEAN CORPUSCULAR HGB CONC 31.1 g/dl (32.0-37.0); MEAN CORPUSCULAR VOLUME 79.8 fl (82.0-101.0); MEAN PLATELET VOLUME 8.1 fl (7.4-10.4); MONOCYTE # 0.4 10^3/ul (0.3-0.9); MONOCYTES % 9.8 % (0.0-11.0); NEUTROPHIL # 2.5 10^3/ul (1.6-7.5); NEUTROPHILS % 64.1 % (39.0-77.0); PLATELET COUNT 263 10^3/UL (140-415); RED BLOOD COUNT 3.31 10^6/ul (4.20-5.40); RED CELL DISTRIBUTION WIDTH 15.4 % (11.5-14.5)
[2017-08-30 06:52] LABS: ANION GAP 15 (8-16); BLOOD UREA NITROGEN 8 mg/dl (7-20); CALCIUM 8.5 mg/dl (8.4-10.2); CARBON DIOXIDE 25 mmol/L (21-31); CHLORIDE 103 mmol/L (97-110); CREATININE 0.54 mg/dl (0.44-1.00); GLUCOSE 92 mg/dl (70-220); MAGNESIUM 1.9 mg/dl (1.7-2.5); PHOSPHORUS 4.3 mg/dl (2.5-4.9); POTASSIUM 4.3 mmol/L (3.5-5.1); SODIUM 139 mmol/L (135-144)
[2017-08-30] MEDS: REPAGLINIDE 2 MG TAB PO ×3 (08:00→17:58)
[2017-08-30] MEDS: INSULIN ASPART [NOVOLOG] 3 ML PEN SC ×4 (08:15→20:45)
[2017-08-30] MEDS: MAGNESIUM HYDROXIDE 30ML CUP PO (09:00)
[2017-08-30] MEDS: INSULIN GLARGINE [LANtus] 3 ML PEN SC (09:02)
[2017-08-30] MEDS: CHOLECALCIFEROL 2,000 UNIT CAP PO (09:03)
[2017-08-30] MEDS: ENOXAPARIN 40 MG/0.4 ML SYG SC (09:03)
[2017-08-30] MEDS: PREGABALIN 50 MG CAP PO ×3 (09:03→20:41)
[2017-08-30] MEDS: FAMOTIDINE 20 MG TAB PO (09:04)
[2017-08-30] MEDS: SENNA/DOCUSATE NA (8.6MG/50MG) TAB PO ×2 (09:04→20:41)
[2017-08-30] MEDS: metFORMIN 500 MG TAB PO ×2 (09:05→17:58)
[2017-08-30] MEDS: SOD FERRIC GLUC COMPLX 125 MG in SOD CHLORIDE 0.9% 100 ML IVPB (16:41)
[2017-08-30] MEDS: IMMUN GLOB G(IGG) 10% 200 ML IV (19:49)
[2017-08-30] MEDS: traZODone 50 MG TAB PO (20:41)
[2017-08-31] MEDS: morphine 2 MG INJ IV ×6 (00:09→20:25)
[2017-08-31] MEDS: LEVOTHYROXINE 100 MCG TAB PO (06:33)
[2017-08-31] MEDS: metFORMIN 500 MG TAB PO ×2 (08:06→17:20)
[2017-08-31] MEDS: CHOLECALCIFEROL 2,000 UNIT CAP PO (08:06)
[2017-08-31] MEDS: SENNA/DOCUSATE NA (8.6MG/50MG) TAB PO ×2 (08:06→20:23)
[2017-08-31] MEDS: FAMOTIDINE 20 MG TAB PO (08:06)
[2017-08-31] MEDS: MAGNESIUM HYDROXIDE 30ML CUP PO (08:07)
[2017-08-31] MEDS: PREGABALIN 50 MG CAP PO ×3 (08:07→20:23)
[2017-08-31] MEDS: INSULIN ASPART [NOVOLOG] 3 ML PEN SC ×4 (08:07→20:32)
[2017-08-31] MEDS: ENOXAPARIN 40 MG/0.4 ML SYG SC (08:14)
[2017-08-31] MEDS: REPAGLINIDE 2 MG TAB PO ×3 (08:16→17:20)
[2017-08-31] MEDS: INSULIN GLARGINE [LANtus] 3 ML PEN SC (08:18)
[2017-08-31] MEDS ORDERED: METHADONE 5 MG TAB PO (11:00)
[2017-08-31 12:24] LABS: WHITE BLOOD COUNT 5.1 10^3/ul (4.8-10.8)
[2017-08-31 12:24] LABS: HEMATOCRIT 28.5 % (37.0-47.0); MEAN CORPUSCULAR HEMOGLOBIN 25.6 pg (29.0-33.0); MEAN CORPUSCULAR HGB CONC 31.6 g/dl (32.0-37.0); MEAN PLATELET VOLUME 8.5 fl (7.4-10.4); PLATELET COUNT 288 10^3/UL (140-415); RED BLOOD COUNT 3.52 10^6/ul (4.20-5.40)
[2017-08-31 12:26] LABS: POSITIVE DIFF @See below
[2017-08-31 12:27] LABS: ADD MAN DIFF? YES
[2017-08-31 12:47] LABS: ALBUMIN/GLOBULIN RATIO 0.64; ANION GAP 13 (8-16)
[2017-08-31 13:00] LABS: ALANINE AMINOTRANSFERASE 28 IU/L (13-69); ALBUMIN 3.4 g/dl (3.3-4.9); ALKALINE PHOSPHATASE 90 IU/L (42-121); ASPARTATE AMINO TRANSFERASE 29 IU/L (15-46); BILIRUBIN,INDIRECT 0.1 mg/dl (0-1.1); BILIRUBIN,TOTAL 0.1 mg/dl (0.2-1.3); BLOOD UREA NITROGEN 7 mg/dl (7-20); CALCIUM 8.8 mg/dl (8.4-10.2); CARBON DIOXIDE 26 mmol/L (21-31); CHLORIDE 103 mmol/L (97-110); CREATININE 0.51 mg/dl (0.44-1.00); GLUCOSE 107 mg/dl (70-220); POTASSIUM 4.4 mmol/L (3.5-5.1); SODIUM 138 mmol/L (135-144); TOTAL PROTEIN 8.7 g/dl (6.1-8.1)
[2017-08-31 13:24] LABS: ANISOCYTOSIS 2+ (0-0); BAND NEUTROPHILS #M 0.2 10^3/ul (0.0-0.6); BAND NEUTROPHILS % (M) 4 % (0-4); BASOPHILS % (M) 1 % (0-2); EOSINOPHILS % (M) 1 % (0-7); GIANT THROMBO% (M) 1 % (0-0); LYMPHOCYTES #M 1.1 10^3/ul (0.8-2.9); LYMPHOCYTES % (M) 22 % (15-51); MICROCYTOSIS 2+ (0-0); MONOCYTE #M 0.4 10^3/ul (0.3-0.9); MONOCYTES % (M) 8 % (0-11); PLATELET ESTIMATE NORMAL; POLYCHROMASIA 3+ (0-0); REACTIVE LYMPHOCYTES #M 0.1 10^3/ul (0.0-0.0); REACTIVE LYMPHOCYTES% (M) 2 % (0-0); SEG NEUT #M 3.2 10^3/ul (1.6-7.5); SEGMENTED NEUTROPHILS (M) % 62 % (39-77); SMUDGE%M 2 % (0-0)
[2017-08-31] MEDS: hydrALAzine 20 MG INJ IV (20:23)
[2017-08-31] MEDS: traZODone 50 MG TAB PO (20:23)
[2017-09-01] MEDS: morphine 2 MG INJ IV ×6 (00:15→19:42)
[2017-09-01] MEDS: LEVOTHYROXINE 100 MCG TAB PO (06:00)
[2017-09-01] MEDS: metFORMIN 500 MG TAB PO ×2 (08:08→17:25)
[2017-09-01] MEDS: SENNA/DOCUSATE NA (8.6MG/50MG) TAB PO ×2 (08:09→21:07)
[2017-09-01] MEDS: REPAGLINIDE 2 MG TAB PO ×4 (08:09→17:25)
[2017-09-01] MEDS: FAMOTIDINE 20 MG TAB PO (08:09)
[2017-09-01] MEDS: PREGABALIN 50 MG CAP PO ×4 (08:09→21:05)
[2017-09-01] MEDS: CHOLECALCIFEROL 2,000 UNIT CAP PO (08:09)
[2017-09-01] MEDS: INSULIN ASPART [NOVOLOG] 3 ML PEN SC ×4 (08:13→21:00)
[2017-09-01] MEDS: INSULIN GLARGINE [LANtus] 3 ML PEN SC (08:13)
[2017-09-01] MEDS: ENOXAPARIN 40 MG/0.4 ML SYG SC (08:13)
[2017-09-01] MEDS: MAGNESIUM HYDROXIDE 30ML CUP PO (08:15)
[2017-09-01] MEDS: METHADONE 5 MG TAB PO ×2 (12:00→20:00)
[2017-09-01] MEDS: traZODone 50 MG TAB PO (21:06)
== END 2017-09-01 21:20 | disposition home health service (06) | DRG 95 ==
LOC: MS2 08-23 15:00 → TEL 10:28
PROVIDERS: Internal Medicine
PROC: 30233S0 Transfusion of Autologous Globulin into Peripheral Vein, Percutaneous Approach (ICD-10-PCS; principal; 2017-08-26)
PROC: 009U3ZX Drainage of Spinal Canal, Percutaneous Approach, Diagnostic (ICD-10-PCS; 2017-08-26)
PROC: B01BYZZ Fluoroscopy of Spinal Cord using Other Contrast (ICD-10-PCS; 2017-08-26)
DX: G61.0 Guillain-Barre syndrome (principal); G61.81 Chronic inflammatory demyelinating polyneuritis; E11.42 Type 2 diabetes mellitus with diabetic polyneuropathy; M54.5 Low back pain; E11.65 Type 2 diabetes mellitus with hyperglycemia; I10 Essential (primary) hypertension; F41.9 Anxiety disorder, unspecified; R11.2 Nausea with vomiting, unspecified; T40.2X5A Adverse effect of other opioids, initial encounter; Y92.230 Patient room in hospital as the place of occurrence of the external cause; D50.9 Iron deficiency anemia, unspecified; E55.9 Vitamin D deficiency, unspecified; E89.0 Postprocedural hypothyroidism; R33.9 Retention of urine, unspecified; Z79.4 Long term (current) use of insulin
CPT/HCPCS: 70552; 72128; 72131; 72148; 74177; 76856; 80048; 80053; 80061; 80069; 81001; 82306; 82533; 82550; 82553; 82607; 82652; 82746; 82945; 82962; 83036; 83540; 83735; 84100; 84157; 84439; 84443; 84484; 84703; 85025; 85610; 85730; 86592; 86803; 87070; 87086; 87340; 89051; 93970; 97110; 97116; 97163; 97530; J1566

== ENCOUNTER 2017-09-03 17:47 | Inpatient (IN) | payer OTHER ==
[2017-09-03] MEDS: morphine 2 MG INJ IV (20:23)
[2017-09-03] MEDS: ATENOLOL 25 MG TAB PO (23:23)
[2017-09-03] MEDS ORDERED: GLUCOSE GEL 15 GRAM TUBE BUCCAL (23:30)
[2017-09-03] MEDS ORDERED: GLUCAGON 1 MG INJ IM (23:30)
[2017-09-03] MEDS ORDERED: DEXTROSE 50% 50 ML SYRINGE IV ×2 (23:30)
[2017-09-03] MEDS ORDERED: GLUCOSE GEL 15 GRAM TUBE PO ×2 (23:30)
[2017-09-04 01:10] LABS: ALANINE AMINOTRANSFERASE 27 IU/L (13-69); ALBUMIN 3.6 g/dl (3.3-4.9); ALBUMIN/GLOBULIN RATIO 0.75; ALKALINE PHOSPHATASE 99 IU/L (42-121); ANION GAP 14 (8-16); ASPARTATE AMINO TRANSFERASE 31 IU/L (15-46); BILIRUBIN,INDIRECT 0.1 mg/dl (0-1.1); BILIRUBIN,TOTAL 0.1 mg/dl (0.2-1.3); BLOOD UREA NITROGEN 11 mg/dl (7-20); CALCIUM 8.5 mg/dl (8.4-10.2); CARBON DIOXIDE 26 mmol/L (21-31); CHLORIDE 101 mmol/L (97-110); CREATININE 0.41 mg/dl (0.44-1.00); GLUCOSE 141 mg/dl (70-220); PHOSPHORUS 2.9 mg/dl (2.5-4.9); POTASSIUM 4.2 mmol/L (3.5-5.1); SODIUM 137 mmol/L (135-144); TOTAL PROTEIN 8.4 g/dl (6.1-8.1)
[2017-09-04] MEDS: morphine 2 MG INJ IV ×5 (01:12→19:08)
[2017-09-04] MEDS: ACCU-CHEK XX (02:00)
[2017-09-04] MEDS: PANTOPRAZOLE (EC) 40 MG TAB PO (05:08)
[2017-09-04] MEDS: INSULIN ASPART [NOVOLOG] 3 ML PEN SC ×7 (07:50→21:00)
[2017-09-04] MEDS: NIFEdipine (XL) 30 MG TAB PO (09:16)
[2017-09-04] MEDS: ATENOLOL 25 MG TAB PO ×2 (09:16→20:48)
[2017-09-04] MEDS: SUCRALFATE 1 GM TAB PO ×3 (09:16→18:23)
[2017-09-04 11:42] LABS: ADD MAN DIFF? NO
[2017-09-04 11:44] LABS: WHITE BLOOD COUNT 5.1 10^3/ul (4.8-10.8)
[2017-09-04 11:44] LABS: BASOPHILS % 0.4 % (0.0-2.0); EOSINOPHILS # 0.1 10^3/ul (0.0-0.5); EOSINOPHILS % 1.4 % (0.0-7.0); HEMATOCRIT 30.6 % (37.0-47.0); HEMOGLOBIN 9.9 g/dl (12.0-16.0); LYMPHOCYTES % 18.8 % (15.0-51.0); MEAN CORPUSCULAR HGB CONC 32.4 g/dl (32.0-37.0); MEAN CORPUSCULAR VOLUME 80.3 fl (82.0-101.0); MEAN PLATELET VOLUME 8.3 fl (7.4-10.4); MONOCYTE # 0.3 10^3/ul (0.3-0.9); MONOCYTES % 6.1 % (0.0-11.0); NEUTROPHIL # 3.7 10^3/ul (1.6-7.5); NEUTROPHILS % 72.7 % (39.0-77.0); PLATELET COUNT 237 10^3/UL (140-415); RED BLOOD COUNT 3.81 10^6/ul (4.20-5.40); RED CELL DISTRIBUTION WIDTH 17.9 % (11.5-14.5)
[2017-09-04] MEDS: PREGABALIN 100 MG CAP PO ×2 (11:45→20:47)
[2017-09-04] MEDS ORDERED: POLYETHYLENE GLYCOL 17 GM PACKET PO (18:00)
[2017-09-04] MEDS: traZODone 50 MG TAB PO (20:47)
[2017-09-04] MEDS: INSULIN GLARGINE [LANtus] 3 ML PEN SC (20:55)
[2017-09-05] MEDS: morphine 2 MG INJ IV ×8 (00:09→23:03)
[2017-09-05] MEDS: ACCU-CHEK XX (02:00)
[2017-09-05 05:10] LABS: ADD MAN DIFF? NO
[2017-09-05 05:28] LABS: BASOPHILS % 0.9 % (0.0-2.0); EOSINOPHILS # 0.1 10^3/ul (0.0-0.5); EOSINOPHILS % 1.6 % (0.0-7.0); HEMATOCRIT 28.7 % (37.0-47.0); HEMOGLOBIN 9.4 g/dl (12.0-16.0); LYMPHOCYTES # 1.5 10^3/ul (0.8-2.9); MEAN CORPUSCULAR HEMOGLOBIN 26.1 pg (29.0-33.0); MEAN CORPUSCULAR HGB CONC 32.8 g/dl (32.0-37.0); MEAN CORPUSCULAR VOLUME 79.7 fl (82.0-101.0); MEAN PLATELET VOLUME 9.5 fl (7.4-10.4); MONOCYTE # 0.4 10^3/ul (0.3-0.9); MONOCYTES % 9.1 % (0.0-11.0); NEUTROPHIL # 2.4 10^3/ul (1.6-7.5); NEUTROPHILS % 54.9 % (39.0-77.0); PLATELET COUNT 208 10^3/UL (140-415); RED CELL DISTRIBUTION WIDTH 18.6 % (11.5-14.5)
[2017-09-05 05:28] LABS: WHITE BLOOD COUNT 4.4 10^3/ul (4.8-10.8)
[2017-09-05 05:51] LABS: ANION GAP 13 (8-16); BLOOD UREA NITROGEN 13 mg/dl (7-20); CALCIUM 8.6 mg/dl (8.4-10.2); CARBON DIOXIDE 24 mmol/L (21-31); CHLORIDE 106 mmol/L (97-110); CREATININE 0.49 mg/dl (0.44-1.00); GLUCOSE 106 mg/dl (70-220); PHOSPHORUS 3.4 mg/dl (2.5-4.9); POTASSIUM 4.3 mmol/L (3.5-5.1); SODIUM 139 mmol/L (135-144)
[2017-09-05] MEDS: PANTOPRAZOLE (EC) 40 MG TAB PO (07:03)
[2017-09-05] MEDS: LEVOTHYROXINE 100 MCG TAB PO (07:03)
[2017-09-05] MEDS: NIFEdipine (XL) 30 MG TAB PO (08:46)
[2017-09-05] MEDS: CHOLECALCIFEROL 2,000 UNIT CAP PO (08:47)
[2017-09-05] MEDS: SUCRALFATE 1 GM TAB PO ×3 (08:47→17:08)
[2017-09-05] MEDS: ATENOLOL 25 MG TAB PO ×2 (08:47→21:08)
[2017-09-05] MEDS: PREGABALIN 100 MG CAP PO ×3 (08:47→21:07)
[2017-09-05] MEDS: INSULIN ASPART [NOVOLOG] 3 ML PEN SC ×7 (08:50→21:16)
[2017-09-05] MEDS: NA PHOSPHATE/BIPHOS 133 ML ENEMA PR (12:58)
[2017-09-05 14:36] LABS: IRON 104 ug/dl (35-150)
[2017-09-05 14:45] LABS: % IRON SATURATION 40 % SAT (22-52); TOTAL IRON BINDING CAPACITY 263 ug/dl (241-421)
[2017-09-05] MEDS: SOD FERRIC GLUC COMPLX 125 MG in SOD CHLORIDE 0.9% 100 ML IVPB (17:05)
[2017-09-05] MEDS: traZODone 50 MG TAB PO (21:07)
[2017-09-05] MEDS: INSULIN GLARGINE [LANtus] 3 ML PEN SC (21:16)
[2017-09-06] MEDS: IBUPROFEN 400 MG TAB PO ×2 (00:41→12:19)
[2017-09-06] MEDS: HYDROCODONE/APAP (5/325) TAB PO (00:41)
[2017-09-06] MEDS: morphine 2 MG INJ IV ×6 (01:06→21:10)
[2017-09-06] MEDS: ACCU-CHEK XX (02:00)
[2017-09-06 05:30] LABS: ADD MAN DIFF? NO
[2017-09-06 05:36] LABS: WHITE BLOOD COUNT 5.6 10^3/ul (4.8-10.8)
[2017-09-06 05:36] LABS: BASOPHIL # 0.1 10^3/ul (0.0-0.1); BASOPHILS % 1.1 % (0.0-2.0); EOSINOPHILS % 0.7 % (0.0-7.0); HEMATOCRIT 29.4 % (37.0-47.0); HEMOGLOBIN 9.6 g/dl (12.0-16.0); LYMPHOCYTES # 1.5 10^3/ul (0.8-2.9); LYMPHOCYTES % 25.8 % (15.0-51.0); MEAN CORPUSCULAR HEMOGLOBIN 26.4 pg (29.0-33.0); MEAN CORPUSCULAR HGB CONC 32.7 g/dl (32.0-37.0); MEAN PLATELET VOLUME 8.5 fl (7.4-10.4); MONOCYTE # 0.4 10^3/ul (0.3-0.9); MONOCYTES % 7.7 % (0.0-11.0); NEUTROPHIL # 3.6 10^3/ul (1.6-7.5); NEUTROPHILS % 63.8 % (39.0-77.0); PLATELET COUNT 211 10^3/UL (140-415); RED BLOOD COUNT 3.63 10^6/ul (4.20-5.40); RED CELL DISTRIBUTION WIDTH 18.4 % (11.5-14.5)
[2017-09-06 06:00] LABS: ALBUMIN 3.1 g/dl (3.3-4.9); ANION GAP 13 (8-16); BLOOD UREA NITROGEN 11 mg/dl (7-20); CALCIUM 8.6 mg/dl (8.4-10.2); CARBON DIOXIDE 29 mmol/L (21-31); CHLORIDE 101 mmol/L (97-110); CREATININE 0.51 mg/dl (0.44-1.00); GLUCOSE 170 mg/dl (70-220); MAGNESIUM 1.7 mg/dl (1.7-2.5); PHOSPHORUS 2.6 mg/dl (2.5-4.9); POTASSIUM 4.1 mmol/L (3.5-5.1); SODIUM 139 mmol/L (135-144)
[2017-09-06] MEDS: SUCRALFATE 1 GM TAB PO ×3 (07:49→16:52)
[2017-09-06] MEDS: PANTOPRAZOLE (EC) 40 MG TAB PO (07:49)
[2017-09-06] MEDS: LEVOTHYROXINE 100 MCG TAB PO (07:49)
[2017-09-06] MEDS: PREGABALIN 100 MG CAP PO ×3 (08:51→20:28)
[2017-09-06] MEDS: CHOLECALCIFEROL 2,000 UNIT CAP PO (08:51)
[2017-09-06] MEDS: NIFEdipine (XL) 30 MG TAB PO (08:51)
[2017-09-06] MEDS: ATENOLOL 25 MG TAB PO ×2 (08:51→20:29)
[2017-09-06] MEDS: INSULIN ASPART [NOVOLOG] 3 ML PEN SC ×8 (09:00→20:28)
[2017-09-06] MEDS: SOD FERRIC GLUC COMPLX 125 MG in SOD CHLORIDE 0.9% 100 ML IVPB (16:52)
[2017-09-06] MEDS ORDERED: LEVOTHYROXINE 500 MCG VIAL IV (20:00)
[2017-09-06] MEDS: LIOTHYRONINE 5 MCG TAB PO (20:29)
[2017-09-06] MEDS: traZODone 50 MG TAB PO (20:29)
[2017-09-06] MEDS: INSULIN GLARGINE [LANtus] 3 ML PEN SC (20:33)
[2017-09-06] MEDS: LEVOTHYROXINE 100 MCG VIAL IV (21:10)
[2017-09-07] MEDS: morphine 2 MG INJ IV ×6 (00:45→20:33)
[2017-09-07] MEDS: ACCU-CHEK XX (02:36)
[2017-09-07] MEDS: LIOTHYRONINE 5 MCG TAB PO ×2 (04:51→20:40)
[2017-09-07] MEDS: PANTOPRAZOLE (EC) 40 MG TAB PO (04:51)
[2017-09-07] MEDS: LEVOTHYROXINE 100 MCG TAB PO (04:52)
[2017-09-07 05:16] LABS: ADD MAN DIFF? NO
[2017-09-07 05:27] LABS: WHITE BLOOD COUNT 4.8 10^3/ul (4.8-10.8)
[2017-09-07 05:27] LABS: BASOPHIL # 0.1 10^3/ul (0.0-0.1); BASOPHILS % 1.5 % (0.0-2.0); EOSINOPHILS # 0.1 10^3/ul (0.0-0.5); EOSINOPHILS % 1.7 % (0.0-7.0); HEMOGLOBIN 10.1 g/dl (12.0-16.0); LYMPHOCYTES # 1.3 10^3/ul (0.8-2.9); LYMPHOCYTES % 26.7 % (15.0-51.0); MEAN CORPUSCULAR HEMOGLOBIN 26.8 pg (29.0-33.0); MEAN CORPUSCULAR HGB CONC 32.6 g/dl (32.0-37.0); MEAN CORPUSCULAR VOLUME 82.2 fl (82.0-101.0); MONOCYTE # 0.4 10^3/ul (0.3-0.9); MONOCYTES % 8.3 % (0.0-11.0); NEUTROPHIL # 2.9 10^3/ul (1.6-7.5); NEUTROPHILS % 59.7 % (39.0-77.0); NUCLEATED RED BLOOD CELLS% 0.4 /100WBC (0.0-0.0); PLATELET COUNT 213 10^3/UL (140-415); RED BLOOD COUNT 3.77 10^6/ul (4.20-5.40); RED CELL DISTRIBUTION WIDTH 18.4 % (11.5-14.5)
[2017-09-07 05:51] LABS: ALBUMIN 3.4 g/dl (3.3-4.9); ANION GAP 13 (8-16); BLOOD UREA NITROGEN 11 mg/dl (7-20); CALCIUM 8.6 mg/dl (8.4-10.2); CARBON DIOXIDE 30 mmol/L (21-31); CHLORIDE 100 mmol/L (97-110); CREATININE 0.38 mg/dl (0.44-1.00); GLUCOSE 151 mg/dl (70-220); MAGNESIUM 1.7 mg/dl (1.7-2.5); POTASSIUM 4.3 mmol/L (3.5-5.1); SODIUM 139 mmol/L (135-144)
[2017-09-07] MEDS: REPAGLINIDE 1 MG TAB PO ×3 (08:49→16:28)
[2017-09-07] MEDS: SUCRALFATE 1 GM TAB PO ×3 (08:49→16:28)
[2017-09-07] MEDS: PREGABALIN 100 MG CAP PO ×3 (08:49→20:40)
[2017-09-07] MEDS: CHOLECALCIFEROL 2,000 UNIT CAP PO (08:49)
[2017-09-07] MEDS: ATENOLOL 25 MG TAB PO ×2 (08:52→20:41)
[2017-09-07] MEDS: NIFEdipine (XL) 30 MG TAB PO (08:52)
[2017-09-07] MEDS: INSULIN ASPART [NOVOLOG] 3 ML PEN SC ×4 (09:23→20:39)
[2017-09-07] MEDS: SOD FERRIC GLUC COMPLX 125 MG in SOD CHLORIDE 0.9% 100 ML IVPB (16:05)
[2017-09-07] MEDS: INSULIN GLARGINE [LANtus] 3 ML PEN SC (20:37)
[2017-09-07] MEDS: traZODone 50 MG TAB PO (20:40)
[2017-09-08] MEDS: morphine 2 MG INJ IV ×9 (00:22→20:35)
[2017-09-08] MEDS: ACCU-CHEK XX (02:00)
[2017-09-08] MEDS: PANTOPRAZOLE (EC) 40 MG TAB PO (06:00)
[2017-09-08] MEDS: LEVOTHYROXINE 100 MCG TAB PO (06:00)
[2017-09-08 06:08] LABS: ADD MAN DIFF? NO
[2017-09-08 06:12] LABS: BASOPHIL # 0.1 10^3/ul (0.0-0.1); EOSINOPHILS # 0.1 10^3/ul (0.0-0.5); EOSINOPHILS % 1.6 % (0.0-7.0); HEMATOCRIT 29.1 % (37.0-47.0); HEMOGLOBIN 9.6 g/dl (12.0-16.0); LYMPHOCYTES # 1.1 10^3/ul (0.8-2.9); LYMPHOCYTES % 22.8 % (15.0-51.0); MEAN PLATELET VOLUME 8.6 fl (7.4-10.4); MONOCYTE # 0.4 10^3/ul (0.3-0.9); MONOCYTES % 8.6 % (0.0-11.0); NEUTROPHIL # 3.2 10^3/ul (1.6-7.5); NEUTROPHILS % 64.4 % (39.0-77.0); PLATELET COUNT 198 10^3/UL (140-415); RED BLOOD COUNT 3.55 10^6/ul (4.20-5.40); RED CELL DISTRIBUTION WIDTH 19.3 % (11.5-14.5)
[2017-09-08 07:04] LABS: ALBUMIN 3.1 g/dl (3.3-4.9); ANION GAP 12 (8-16); BLOOD UREA NITROGEN 9 mg/dl (7-20); CALCIUM 8.8 mg/dl (8.4-10.2); CARBON DIOXIDE 30 mmol/L (21-31); CHLORIDE 102 mmol/L (97-110); CREATININE 0.37 mg/dl (0.44-1.00); GLUCOSE 134 mg/dl (70-220); MAGNESIUM 1.7 mg/dl (1.7-2.5); PHOSPHORUS 3.4 mg/dl (2.5-4.9); POTASSIUM 4.2 mmol/L (3.5-5.1); SODIUM 140 mmol/L (135-144)
[2017-09-08] MEDS: INSULIN ASPART [NOVOLOG] 3 ML PEN SC ×4 (07:50→20:09)
[2017-09-08] MEDS: REPAGLINIDE 1 MG TAB PO ×3 (08:12→18:09)
[2017-09-08] MEDS: SUCRALFATE 1 GM TAB PO ×3 (08:12→18:09)
[2017-09-08] MEDS: LIOTHYRONINE 5 MCG TAB PO ×2 (08:19→20:34)
[2017-09-08] MEDS: CHOLECALCIFEROL 2,000 UNIT CAP PO (08:19)
[2017-09-08] MEDS: PREGABALIN 100 MG CAP PO (08:19)
[2017-09-08] MEDS: ERGOCALCIFEROL 50,000 UNIT CAP PO (08:19)
[2017-09-08] MEDS: ATENOLOL 25 MG TAB PO ×2 (08:20→20:35)
[2017-09-08] MEDS: NIFEdipine (XL) 30 MG TAB PO (08:20)
[2017-09-08] MEDS: PREGABALIN 50 MG CAP PO (10:38)
[2017-09-08] MEDS: PREGABALIN 75 MG CAP PO ×2 (12:57→20:34)
[2017-09-08] MEDS: INSULIN GLARGINE [LANtus] 3 ML PEN SC (20:11)
[2017-09-08] MEDS: traZODone 50 MG TAB PO (20:34)
[2017-09-09] MEDS: morphine 2 MG INJ IV ×6 (00:40→20:53)
[2017-09-09] MEDS: ACCU-CHEK XX (01:32)
[2017-09-09 05:52] LABS: ADD MAN DIFF? NO
[2017-09-09 05:56] LABS: BASOPHIL # 0.1 10^3/ul (0.0-0.1); EOSINOPHILS # 0.1 10^3/ul (0.0-0.5); HEMATOCRIT 30.6 % (37.0-47.0); HEMOGLOBIN 9.9 g/dl (12.0-16.0); LYMPHOCYTES # 1.5 10^3/ul (0.8-2.9); LYMPHOCYTES % 29.3 % (15.0-51.0); MEAN CORPUSCULAR HGB CONC 32.4 g/dl (32.0-37.0); MEAN CORPUSCULAR VOLUME 83.4 fl (82.0-101.0); MEAN PLATELET VOLUME 8.6 fl (7.4-10.4); MONOCYTE # 0.5 10^3/ul (0.3-0.9); MONOCYTES % 9.2 % (0.0-11.0); NEUTROPHIL # 2.9 10^3/ul (1.6-7.5); NEUTROPHILS % 57.7 % (39.0-77.0); PLATELET COUNT 221 10^3/UL (140-415); RED BLOOD COUNT 3.67 10^6/ul (4.20-5.40); RED CELL DISTRIBUTION WIDTH 19.8 % (11.5-14.5)
[2017-09-09 06:21] LABS: ALBUMIN 3.2 g/dl (3.3-4.9); ANION GAP 11 (8-16); BLOOD UREA NITROGEN 10 mg/dl (7-20); CALCIUM 8.9 mg/dl (8.4-10.2); CARBON DIOXIDE 31 mmol/L (21-31); CHLORIDE 101 mmol/L (97-110); CREATININE 0.44 mg/dl (0.44-1.00); GLUCOSE 66 mg/dl (70-220); MAGNESIUM 1.7 mg/dl (1.7-2.5); PHOSPHORUS 4.2 mg/dl (2.5-4.9); POTASSIUM 4.2 mmol/L (3.5-5.1); SODIUM 139 mmol/L (135-144)
[2017-09-09] MEDS: PANTOPRAZOLE (EC) 40 MG TAB PO (06:28)
[2017-09-09] MEDS: LEVOTHYROXINE 100 MCG TAB PO (06:28)
[2017-09-09] MEDS: INSULIN ASPART [NOVOLOG] 3 ML PEN SC ×4 (07:50→21:00)
[2017-09-09] MEDS: SUCRALFATE 1 GM TAB PO ×3 (08:10→17:43)
[2017-09-09] MEDS: REPAGLINIDE 1 MG TAB PO ×3 (08:10→17:43)
[2017-09-09] MEDS: CYANOCOBALAMIN 1000 MCG INJ IM (08:11)
[2017-09-09] MEDS: CHOLECALCIFEROL 2,000 UNIT CAP PO (08:16)
[2017-09-09] MEDS: NIFEdipine (XL) 30 MG TAB PO (08:16)
[2017-09-09] MEDS: PREGABALIN 75 MG CAP PO ×3 (08:16→20:50)
[2017-09-09] MEDS: LIOTHYRONINE 5 MCG TAB PO ×2 (08:16→20:50)
[2017-09-09] MEDS: FOLIC ACID 1 MG TAB PO (08:38)
[2017-09-09] MEDS: ATENOLOL 25 MG TAB PO ×2 (08:39→20:51)
[2017-09-09] MEDS: traZODone 50 MG TAB PO (20:50)
[2017-09-09] MEDS: INSULIN GLARGINE [LANtus] 3 ML PEN SC (20:52)
[2017-09-10] MEDS: morphine 2 MG INJ IV ×7 (00:47→23:17)
[2017-09-10] MEDS: ACCU-CHEK XX (01:25)
[2017-09-10 05:32] LABS: ADD MAN DIFF? NO
[2017-09-10 05:33] LABS: BASOPHILS % 0.5 % (0.0-2.0); EOSINOPHILS # 0.1 10^3/ul (0.0-0.5); EOSINOPHILS % 1.2 % (0.0-7.0); HEMATOCRIT 32.6 % (37.0-47.0); HEMOGLOBIN 10.7 g/dl (12.0-16.0); LYMPHOCYTES # 1.3 10^3/ul (0.8-2.9); LYMPHOCYTES % 21.9 % (15.0-51.0); MEAN CORPUSCULAR HEMOGLOBIN 27.5 pg (29.0-33.0); MEAN CORPUSCULAR HGB CONC 32.8 g/dl (32.0-37.0); MEAN CORPUSCULAR VOLUME 83.8 fl (82.0-101.0); MEAN PLATELET VOLUME 8.6 fl (7.4-10.4); MONOCYTE # 0.5 10^3/ul (0.3-0.9); MONOCYTES % 7.9 % (0.0-11.0); NEUTROPHIL # 4.1 10^3/ul (1.6-7.5); NEUTROPHILS % 67.8 % (39.0-77.0); PLATELET COUNT 234 10^3/UL (140-415); RED BLOOD COUNT 3.89 10^6/ul (4.20-5.40); RED CELL DISTRIBUTION WIDTH 20.2 % (11.5-14.5)
[2017-09-10 05:33] LABS: WHITE BLOOD COUNT 6.1 10^3/ul (4.8-10.8)
[2017-09-10] MEDS: LEVOTHYROXINE 100 MCG TAB PO (05:44)
[2017-09-10] MEDS: PANTOPRAZOLE (EC) 40 MG TAB PO (05:44)
[2017-09-10 06:01] LABS: ALBUMIN 3.3 g/dl (3.3-4.9); ANION GAP 10 (8-16); BLOOD UREA NITROGEN 12 mg/dl (7-20); CALCIUM 9.1 mg/dl (8.4-10.2); CARBON DIOXIDE 32 mmol/L (21-31); CHLORIDE 101 mmol/L (97-110); CREATININE 0.48 mg/dl (0.44-1.00); GLUCOSE 78 mg/dl (70-220); MAGNESIUM 1.8 mg/dl (1.7-2.5); PHOSPHORUS 4.4 mg/dl (2.5-4.9); POTASSIUM 4.3 mmol/L (3.5-5.1); SODIUM 139 mmol/L (135-144)
[2017-09-10 06:27] LABS: FREE T4 (FREE THYROXINE) 1.08 ng/dl (0.79-2.35)
[2017-09-10 06:27] LABS: FREE T3 3.42 pg/ml (2.77-5.27)
[2017-09-10] MEDS: INSULIN ASPART [NOVOLOG] 3 ML PEN SC ×4 (07:50→21:00)
[2017-09-10] MEDS: FOLIC ACID 1 MG TAB PO (08:30)
[2017-09-10] MEDS: REPAGLINIDE 1 MG TAB PO ×3 (08:31→17:40)
[2017-09-10] MEDS: SUCRALFATE 1 GM TAB PO ×3 (08:31→17:40)
[2017-09-10] MEDS: LIOTHYRONINE 5 MCG TAB PO ×2 (08:31→21:10)
[2017-09-10] MEDS: CHOLECALCIFEROL 2,000 UNIT CAP PO (08:31)
[2017-09-10] MEDS: NIFEdipine (XL) 30 MG TAB PO (08:32)
[2017-09-10] MEDS: ATENOLOL 25 MG TAB PO (08:33)
[2017-09-10] MEDS: PREGABALIN 75 MG CAP PO ×3 (09:06→21:10)
[2017-09-10] MEDS: NAPROXEN 250 MG TAB PO ×2 (11:48→21:10)
[2017-09-10] MEDS: traZODone 50 MG TAB PO (21:10)
[2017-09-10] MEDS: INSULIN GLARGINE [LANtus] 3 ML PEN SC (21:13)
[2017-09-11] MEDS: morphine 2 MG INJ IV ×7 (01:01→23:17)
[2017-09-11] MEDS: ACCU-CHEK XX (02:00)
[2017-09-11] MEDS: LEVOTHYROXINE 100 MCG TAB PO (05:04)
[2017-09-11] MEDS: PANTOPRAZOLE (EC) 40 MG TAB PO (05:04)
[2017-09-11] MEDS: INSULIN ASPART [NOVOLOG] 3 ML PEN SC ×4 (07:50→21:00)
[2017-09-11] MEDS: CHOLECALCIFEROL 2,000 UNIT CAP PO (08:48)
[2017-09-11] MEDS: LISINOPRIL 20 MG TAB PO (08:49)
[2017-09-11] MEDS: ATENOLOL 25 MG TAB PO (08:49)
[2017-09-11] MEDS: NAPROXEN 250 MG TAB PO ×2 (08:50→21:00)
[2017-09-11] MEDS: LIOTHYRONINE 5 MCG TAB PO ×2 (08:50→21:00)
[2017-09-11] MEDS: FOLIC ACID 1 MG TAB PO (08:50)
[2017-09-11] MEDS: PREGABALIN 75 MG CAP PO ×3 (08:50→21:00)
[2017-09-11] MEDS: SUCRALFATE 1 GM TAB PO ×3 (08:51→17:32)
[2017-09-11] MEDS: REPAGLINIDE 1 MG TAB PO ×3 (08:51→17:32)
[2017-09-11] MEDS: OXYCODONE/ACETAMINOPHEN (5/325) TAB PO (11:50)
[2017-09-11] MEDS: INSULIN GLARGINE [LANtus] 3 ML PEN SC ×2 (20:00→21:37)
[2017-09-11] MEDS: traZODone 50 MG TAB PO (21:00)
[2017-09-12] MEDS: ACCU-CHEK XX (01:45)
[2017-09-12] MEDS: morphine 2 MG INJ IV ×6 (02:31→22:52)
[2017-09-12 05:20] LABS: ABNORMAL IP MESSAGE 1; HEMATOCRIT 31.8 % (37.0-47.0); MEAN CORPUSCULAR HEMOGLOBIN 28.1 pg (29.0-33.0); MEAN CORPUSCULAR HGB CONC 34.6 g/dl (32.0-37.0); MEAN CORPUSCULAR VOLUME 81.1 fl (82.0-101.0); MEAN PLATELET VOLUME 8.6 fl (7.4-10.4); PLATELET COUNT 205 10^3/UL (140-415); RED BLOOD COUNT 3.92 10^6/ul (4.20-5.40); RED CELL DISTRIBUTION WIDTH 20.3 % (11.5-14.5)
[2017-09-12 05:20] LABS: WHITE BLOOD COUNT 4.7 10^3/ul (4.8-10.8)
[2017-09-12 06:06] LABS: ANION GAP 16 (8-16); BLOOD UREA NITROGEN 11 mg/dl (7-20); CALCIUM 9.2 mg/dl (8.4-10.2); CARBON DIOXIDE 27 mmol/L (21-31); CHLORIDE 101 mmol/L (97-110); CREATININE 0.37 mg/dl (0.44-1.00); GLUCOSE 122 mg/dl (70-220); MAGNESIUM 1.7 mg/dl (1.7-2.5); PHOSPHORUS 2.9 mg/dl (2.5-4.9); SODIUM 140 mmol/L (135-144)
[2017-09-12 06:22] LABS: POSITIVE DIFF @See below
[2017-09-12 06:25] LABS: ADD MAN DIFF? YES
[2017-09-12] MEDS: LEVOTHYROXINE 100 MCG TAB PO (06:48)
[2017-09-12] MEDS: PANTOPRAZOLE (EC) 40 MG TAB PO (06:48)
[2017-09-12] MEDS: ATENOLOL 25 MG TAB PO (08:48)
[2017-09-12] MEDS: REPAGLINIDE 1 MG TAB PO ×3 (08:49→17:57)
[2017-09-12] MEDS: LIOTHYRONINE 5 MCG TAB PO ×2 (08:50→22:01)
[2017-09-12] MEDS: CHOLECALCIFEROL 2,000 UNIT CAP PO (08:50)
[2017-09-12] MEDS: SUCRALFATE 1 GM TAB PO ×3 (08:50→17:57)
[2017-09-12] MEDS: NAPROXEN 250 MG TAB PO ×2 (08:50→22:02)
[2017-09-12] MEDS: SENNA/DOCUSATE NA (8.6MG/50MG) TAB PO (08:50)
[2017-09-12] MEDS: PREGABALIN 75 MG CAP PO ×3 (08:50→22:02)
[2017-09-12] MEDS: FOLIC ACID 1 MG TAB PO (08:50)
[2017-09-12] MEDS: LISINOPRIL 20 MG TAB PO (08:51)
[2017-09-12] MEDS: INSULIN ASPART [NOVOLOG] 3 ML PEN SC ×4 (08:56→23:45)
[2017-09-12 09:38] LABS: ANISOCYTOSIS 1+ (0-0); BAND NEUTROPHILS #M 0.4 10^3/ul (0.0-0.6); BAND NEUTROPHILS % (M) 10 % (0-4); EOSINOPHILS % (M) 1 % (0-7); LYMPHOCYTES #M 0.7 10^3/ul (0.8-2.9); LYMPHOCYTES % (M) 16 % (15-51); MICROCYTOSIS 1+ (0-0); MONOCYTE #M 0.4 10^3/ul (0.3-0.9); MONOCYTES % (M) 9 % (0-11); PLATELET ESTIMATE NORMAL; POLYCHROMASIA 1+ (0-0); REACTIVE LYMPHOCYTES #M 0.1 10^3/ul (0.0-0.0); REACTIVE LYMPHOCYTES% (M) 3 % (0-0); SEG NEUT #M 2.9 10^3/ul (1.6-7.5); SEGMENTED NEUTROPHILS (M) % 61 % (39-77); SMUDGE%M 1 % (0-0)
[2017-09-12] MEDS: ENOXAPARIN 40 MG/0.4 ML SYG SC (14:33)
[2017-09-12] MEDS: NA PHOSPHATE/BIPHOS 133 ML ENEMA PR (18:05)
[2017-09-12] MEDS: traZODone 50 MG TAB PO (22:02)
[2017-09-12] MEDS: INSULIN GLARGINE [LANtus] 3 ML PEN SC (22:14)
[2017-09-13] MEDS: morphine 2 MG INJ IV ×7 (02:01→21:29)
[2017-09-13] MEDS: ACCU-CHEK XX (02:01)
[2017-09-13] MEDS: PANTOPRAZOLE (EC) 40 MG TAB PO (05:56)
[2017-09-13] MEDS: LEVOTHYROXINE 100 MCG TAB PO (05:56)
[2017-09-13] MEDS: INSULIN ASPART [NOVOLOG] 3 ML PEN SC ×4 (07:50→21:00)
[2017-09-13] MEDS: LISINOPRIL 20 MG TAB PO (08:52)
[2017-09-13] MEDS: FOLIC ACID 1 MG TAB PO (08:52)
[2017-09-13] MEDS: LIOTHYRONINE 5 MCG TAB PO ×2 (08:52→21:05)
[2017-09-13] MEDS: CHOLECALCIFEROL 2,000 UNIT CAP PO (08:52)
[2017-09-13] MEDS: NAPROXEN 250 MG TAB PO ×2 (08:52→21:05)
[2017-09-13] MEDS: REPAGLINIDE 1 MG TAB PO ×3 (08:52→17:44)
[2017-09-13] MEDS: SUCRALFATE 1 GM TAB PO ×3 (08:52→17:44)
[2017-09-13] MEDS: ATENOLOL 25 MG TAB PO (08:52)
[2017-09-13] MEDS: ENOXAPARIN 40 MG/0.4 ML SYG SC (08:57)
[2017-09-13] MEDS: PREGABALIN 75 MG CAP PO ×3 (08:58→21:05)
[2017-09-13] MEDS: OXYCODONE/ACETAMINOPHEN (5/325) TAB PO (14:03)
[2017-09-13] MEDS: NA PHOSPHATE/BIPHOS 133 ML ENEMA PR (14:09)
[2017-09-13] MEDS: INSULIN GLARGINE [LANtus] 3 ML PEN SC (21:00)
[2017-09-13] MEDS: traZODone 50 MG TAB PO (21:05)
[2017-09-14] MEDS: morphine 2 MG INJ IV ×9 (00:29→23:08)
[2017-09-14] MEDS: ACCU-CHEK XX (02:00)
[2017-09-14] MEDS: LEVOTHYROXINE 100 MCG TAB PO (06:18)
[2017-09-14] MEDS: PANTOPRAZOLE (EC) 40 MG TAB PO (06:18)
[2017-09-14] MEDS: INSULIN ASPART [NOVOLOG] 3 ML PEN SC ×4 (07:50→21:00)
[2017-09-14] MEDS: LISINOPRIL 20 MG TAB PO (09:03)
[2017-09-14] MEDS: LIOTHYRONINE 5 MCG TAB PO ×2 (09:03→20:25)
[2017-09-14] MEDS: SUCRALFATE 1 GM TAB PO ×3 (09:03→18:01)
[2017-09-14] MEDS: FOLIC ACID 1 MG TAB PO (09:03)
[2017-09-14] MEDS: REPAGLINIDE 1 MG TAB PO ×3 (09:03→18:01)
[2017-09-14] MEDS: ATENOLOL 25 MG TAB PO (09:03)
[2017-09-14] MEDS: NAPROXEN 250 MG TAB PO ×2 (09:04→20:25)
[2017-09-14] MEDS: CHOLECALCIFEROL 2,000 UNIT CAP PO (09:04)
[2017-09-14] MEDS: PREGABALIN 75 MG CAP PO ×3 (09:04→20:25)
[2017-09-14] MEDS: ENOXAPARIN 40 MG/0.4 ML SYG SC (09:09)
[2017-09-14] MEDS: traZODone 50 MG TAB PO (20:25)
[2017-09-14] MEDS: INSULIN GLARGINE [LANtus] 3 ML PEN SC (21:55)
[2017-09-15] MEDS: morphine 2 MG INJ IV ×8 (01:59→23:58)
[2017-09-15] MEDS: ACCU-CHEK XX (02:00)
[2017-09-15] MEDS: SUCRALFATE 1 GM TAB PO ×3 (06:46→17:59)
[2017-09-15] MEDS: PANTOPRAZOLE (EC) 40 MG TAB PO (06:46)
[2017-09-15] MEDS: LEVOTHYROXINE 100 MCG TAB PO (06:46)
[2017-09-15] MEDS: INSULIN ASPART [NOVOLOG] 3 ML PEN SC ×4 (07:50→20:25)
[2017-09-15] MEDS: ENOXAPARIN 40 MG/0.4 ML SYG SC (08:39)
[2017-09-15] MEDS: ERGOCALCIFEROL 50,000 UNIT CAP PO ×2 (09:00→16:27)
[2017-09-15] MEDS: PREGABALIN 75 MG CAP PO ×3 (09:59→20:23)
[2017-09-15] MEDS: NAPROXEN 250 MG TAB PO ×2 (09:59→20:21)
[2017-09-15] MEDS: REPAGLINIDE 1 MG TAB PO ×3 (10:00→17:59)
[2017-09-15] MEDS: LISINOPRIL 20 MG TAB PO (10:01)
[2017-09-15] MEDS: ATENOLOL 25 MG TAB PO (10:01)
[2017-09-15] MEDS: CHOLECALCIFEROL 2,000 UNIT CAP PO (10:05)
[2017-09-15] MEDS: FOLIC ACID 1 MG TAB PO (10:06)
[2017-09-15] MEDS: LIOTHYRONINE 5 MCG TAB PO ×2 (10:06→20:21)
[2017-09-15] MEDS: NA PHOSPHATE/BIPHOS 133 ML ENEMA PR (13:33)
[2017-09-15] MEDS: hydrALAzine 20 MG INJ IV (20:05)
[2017-09-15] MEDS: traZODone 50 MG TAB PO (20:21)
[2017-09-15] MEDS: INSULIN GLARGINE [LANtus] 3 ML PEN SC (20:25)
[2017-09-16] MEDS: ACCU-CHEK XX (01:19)
[2017-09-16] MEDS: morphine 2 MG INJ IV ×7 (03:44→23:45)
[2017-09-16] MEDS: PANTOPRAZOLE (EC) 40 MG TAB PO (06:23)
[2017-09-16] MEDS: LEVOTHYROXINE 100 MCG TAB PO (06:23)
[2017-09-16] MEDS: INSULIN ASPART [NOVOLOG] 3 ML PEN SC ×4 (07:50→20:45)
[2017-09-16] MEDS: REPAGLINIDE 1 MG TAB PO ×3 (08:07→17:42)
[2017-09-16] MEDS: SUCRALFATE 1 GM TAB PO ×3 (08:07→17:42)
[2017-09-16] MEDS: NAPROXEN 250 MG TAB PO ×2 (08:52→20:44)
[2017-09-16] MEDS: CHOLECALCIFEROL 2,000 UNIT CAP PO (08:52)
[2017-09-16] MEDS: FOLIC ACID 1 MG TAB PO (08:52)
[2017-09-16] MEDS: LIOTHYRONINE 5 MCG TAB PO ×2 (08:52→20:44)
[2017-09-16] MEDS: PREGABALIN 75 MG CAP PO ×3 (09:36→20:44)
[2017-09-16] MEDS: ONDANSETRON 4 MG INJ IV (09:42)
[2017-09-16] MEDS: ENOXAPARIN 40 MG/0.4 ML SYG SC (09:48)
[2017-09-16] MEDS: LISINOPRIL 20 MG TAB PO (11:28)
[2017-09-16] MEDS: ATENOLOL 25 MG TAB PO (11:28)
[2017-09-16] MEDS: traZODone 50 MG TAB PO (20:44)
[2017-09-16] MEDS: INSULIN GLARGINE [LANtus] 3 ML PEN SC (20:46)
[2017-09-17] MEDS: ACCU-CHEK XX (02:52)
[2017-09-17] MEDS: morphine 2 MG INJ IV ×7 (02:52→21:04)
[2017-09-17] MEDS: LEVOTHYROXINE 100 MCG TAB PO (05:51)
[2017-09-17] MEDS: PANTOPRAZOLE (EC) 40 MG TAB PO (05:51)
[2017-09-17] MEDS: INSULIN ASPART [NOVOLOG] 3 ML PEN SC ×4 (08:30→21:00)
[2017-09-17] MEDS: REPAGLINIDE 1 MG TAB PO ×3 (10:45→17:53)
[2017-09-17] MEDS: LIOTHYRONINE 5 MCG TAB PO ×2 (10:45→20:29)
[2017-09-17] MEDS: SUCRALFATE 1 GM TAB PO ×3 (10:46→17:53)
[2017-09-17] MEDS: PREGABALIN 75 MG CAP PO ×3 (10:47→20:29)
[2017-09-17] MEDS: FOLIC ACID 1 MG TAB PO (10:47)
[2017-09-17] MEDS: CHOLECALCIFEROL 2,000 UNIT CAP PO (10:47)
[2017-09-17] MEDS: ENOXAPARIN 40 MG/0.4 ML SYG SC (10:51)
[2017-09-17] MEDS: NAPROXEN 250 MG TAB PO ×2 (11:08→20:29)
[2017-09-17] MEDS: ATENOLOL 25 MG TAB PO (11:12)
[2017-09-17] MEDS: LISINOPRIL 20 MG TAB PO (11:13)
[2017-09-17] MEDS: OXYCODONE/ACETAMINOPHEN (5/325) TAB PO (13:01)
[2017-09-17] MEDS: traZODone 50 MG TAB PO (20:29)
[2017-09-17] MEDS: INSULIN GLARGINE [LANtus] 3 ML PEN SC (20:31)
[2017-09-18] MEDS: morphine 2 MG INJ IV ×8 (00:07→21:20)
[2017-09-18] MEDS: ACCU-CHEK XX (02:00)
[2017-09-18 05:07] LABS: ADD MAN DIFF? NO
[2017-09-18 05:12] LABS: EOSINOPHILS # 0.1 10^3/ul (0.0-0.5); EOSINOPHILS % 2.1 % (0.0-7.0); HEMOGLOBIN 10.7 g/dl (12.0-16.0); LYMPHOCYTES % 27.2 % (15.0-51.0); MEAN CORPUSCULAR HEMOGLOBIN 28.2 pg (29.0-33.0); MEAN CORPUSCULAR HGB CONC 33.4 g/dl (32.0-37.0); MEAN CORPUSCULAR VOLUME 84.2 fl (82.0-101.0); MEAN PLATELET VOLUME 8.3 fl (7.4-10.4); MONOCYTE # 0.4 10^3/ul (0.3-0.9); MONOCYTES % 10.2 % (0.0-11.0); NEUTROPHIL # 2.3 10^3/ul (1.6-7.5); NEUTROPHILS % 59.2 % (39.0-77.0); PLATELET COUNT 216 10^3/UL (140-415); RED CELL DISTRIBUTION WIDTH 20.4 % (11.5-14.5)
[2017-09-18 05:12] LABS: WHITE BLOOD COUNT 3.8 10^3/ul (4.8-10.8)
[2017-09-18 05:38] LABS: ANION GAP 13 (8-16); BLOOD UREA NITROGEN 10 mg/dl (7-20); CALCIUM 9.2 mg/dl (8.4-10.2); CARBON DIOXIDE 30 mmol/L (21-31); CHLORIDE 102 mmol/L (97-110); CREATININE 0.37 mg/dl (0.44-1.00); GLUCOSE 97 mg/dl (70-220); MAGNESIUM 1.6 mg/dl (1.7-2.5); PHOSPHORUS 4.1 mg/dl (2.5-4.9); SODIUM 141 mmol/L (135-144)
[2017-09-18] MEDS: PANTOPRAZOLE (EC) 40 MG TAB PO (06:11)
[2017-09-18] MEDS: LEVOTHYROXINE 100 MCG TAB PO (06:11)
[2017-09-18] MEDS: INSULIN ASPART [NOVOLOG] 3 ML PEN SC ×4 (08:50→21:00)
[2017-09-18] MEDS: SUCRALFATE 1 GM TAB PO ×3 (08:51→17:29)
[2017-09-18] MEDS: NAPROXEN 250 MG TAB PO (08:51)
[2017-09-18] MEDS: REPAGLINIDE 1 MG TAB PO ×3 (08:51→17:29)
[2017-09-18] MEDS: PREGABALIN 75 MG CAP PO ×3 (08:51→21:20)
[2017-09-18] MEDS: ATENOLOL 25 MG TAB PO (08:52)
[2017-09-18] MEDS: CHOLECALCIFEROL 2,000 UNIT CAP PO (08:52)
[2017-09-18] MEDS: LISINOPRIL 20 MG TAB PO (08:52)
[2017-09-18] MEDS: SENNA/DOCUSATE NA (8.6MG/50MG) TAB PO (08:52)
[2017-09-18] MEDS: FOLIC ACID 1 MG TAB PO (08:53)
[2017-09-18] MEDS: ENOXAPARIN 40 MG/0.4 ML SYG SC (08:55)
[2017-09-18] MEDS: LIOTHYRONINE 5 MCG TAB PO ×2 (10:50→21:20)
[2017-09-18] MEDS: MAGNESIUM OXIDE 400 MG TAB PO (10:50)
[2017-09-18] MEDS ORDERED: ERGOCALCIFEROL 50,000 UNIT CAP PO (16:00)
[2017-09-18] MEDS: ERGOCALCIFEROL 50,000 UNIT CAP PO (17:29)
[2017-09-18] MEDS: traZODone 50 MG TAB PO (21:20)
[2017-09-18] MEDS: INSULIN GLARGINE [LANtus] 3 ML PEN SC (21:22)
[2017-09-19] MEDS: morphine 2 MG INJ IV ×8 (00:24→22:00)
[2017-09-19] MEDS: ACCU-CHEK XX (02:00)
[2017-09-19] MEDS: hydrALAzine 20 MG INJ IV (02:28)
[2017-09-19] MEDS: LEVOTHYROXINE 100 MCG TAB PO (06:20)
[2017-09-19] MEDS: PANTOPRAZOLE (EC) 40 MG TAB PO (06:20)
[2017-09-19] MEDS: INSULIN ASPART [NOVOLOG] 3 ML PEN SC ×4 (09:04→20:08)
[2017-09-19] MEDS: LIOTHYRONINE 5 MCG TAB PO ×2 (09:05→20:09)
[2017-09-19] MEDS: LISINOPRIL 20 MG TAB PO (09:05)
[2017-09-19] MEDS: CHOLECALCIFEROL 2,000 UNIT CAP PO (09:06)
[2017-09-19] MEDS: FOLIC ACID 1 MG TAB PO (09:06)
[2017-09-19] MEDS: SUCRALFATE 1 GM TAB PO ×3 (09:06→18:11)
[2017-09-19] MEDS: PREGABALIN 75 MG CAP PO ×3 (09:07→20:09)
[2017-09-19] MEDS: REPAGLINIDE 1 MG TAB PO ×3 (09:07→18:12)
[2017-09-19] MEDS: ATENOLOL 25 MG TAB PO (09:07)
[2017-09-19] MEDS: ENOXAPARIN 40 MG/0.4 ML SYG SC (09:11)
[2017-09-19] MEDS: NA PHOSPHATE/BIPHOS 133 ML ENEMA PR (15:24)
[2017-09-19] MEDS: traZODone 50 MG TAB PO (20:09)
[2017-09-19] MEDS: INSULIN GLARGINE [LANtus] 3 ML PEN SC (20:14)
[2017-09-20] MEDS: ACCU-CHEK XX ×2 (00:09→23:36)
[2017-09-20] MEDS: morphine 2 MG INJ IV ×2 (00:52→04:00)
[2017-09-20 05:42] LABS: ALBUMIN 3.1 g/dl (3.3-4.9); ANION GAP 14 (8-16); BLOOD UREA NITROGEN 18 mg/dl (7-20); CARBON DIOXIDE 29 mmol/L (21-31); CHLORIDE 105 mmol/L (97-110); CREATININE 0.39 mg/dl (0.44-1.00); GLUCOSE 90 mg/dl (70-220); MAGNESIUM 1.7 mg/dl (1.7-2.5); PHOSPHORUS 4.1 mg/dl (2.5-4.9); POTASSIUM 3.5 mmol/L (3.5-5.1); SODIUM 144 mmol/L (135-144)
[2017-09-20] MEDS: HYDROmorphONE 0.5 MG/0.5 ML SYG IV ×6 (06:27→21:21)
[2017-09-20] MEDS: PANTOPRAZOLE (EC) 40 MG TAB PO (06:31)
[2017-09-20] MEDS: LEVOTHYROXINE 100 MCG TAB PO (06:31)
[2017-09-20] MEDS: ONDANSETRON 4 MG INJ IV (07:01)
[2017-09-20] MEDS: INSULIN ASPART [NOVOLOG] 3 ML PEN SC ×4 (07:50→21:00)
[2017-09-20] MEDS: CHOLECALCIFEROL 2,000 UNIT CAP PO (08:48)
[2017-09-20] MEDS: SUCRALFATE 1 GM TAB PO ×3 (08:48→17:44)
[2017-09-20] MEDS: LISINOPRIL 10 MG TAB PO (08:49)
[2017-09-20] MEDS: LIOTHYRONINE 5 MCG TAB PO ×2 (08:49→22:28)
[2017-09-20] MEDS: REPAGLINIDE 1 MG TAB PO ×3 (08:49→17:44)
[2017-09-20] MEDS: ATENOLOL 25 MG TAB PO (08:50)
[2017-09-20] MEDS: FOLIC ACID 1 MG TAB PO (08:50)
[2017-09-20] MEDS: PREGABALIN 75 MG CAP PO ×3 (08:59→22:29)
[2017-09-20] MEDS ORDERED: HYDROmorphONE 2 MG/ML SYG IV (09:00)
[2017-09-20] MEDS: ENOXAPARIN 40 MG/0.4 ML SYG SC (09:07)
[2017-09-20] MEDS: HYDROmorphONE 2 MG/ML SYG IV (09:27)
[2017-09-20] MEDS: INSULIN GLARGINE [LANtus] 3 ML PEN SC (21:27)
[2017-09-20] MEDS: traZODone 50 MG TAB PO (22:28)
[2017-09-21] MEDS: HYDROmorphONE 0.5 MG/0.5 ML SYG IV ×8 (00:20→21:18)
[2017-09-21] MEDS: ONDANSETRON 4 MG INJ IV ×2 (00:25→09:22)
[2017-09-21] MEDS: HYDROCORTISONE 1% 28 GM CR TOP ×3 (03:00→20:39)
[2017-09-21] MEDS: PANTOPRAZOLE (EC) 40 MG TAB PO (05:57)
[2017-09-21] MEDS: LEVOTHYROXINE 100 MCG TAB PO (05:57)
[2017-09-21] MEDS: INSULIN ASPART [NOVOLOG] 3 ML PEN SC ×4 (07:50→22:13)
[2017-09-21] MEDS: SUCRALFATE 1 GM TAB PO ×3 (08:50→17:49)
[2017-09-21] MEDS: LIOTHYRONINE 5 MCG TAB PO ×2 (08:51→20:38)
[2017-09-21] MEDS: CHOLECALCIFEROL 2,000 UNIT CAP PO (08:51)
[2017-09-21] MEDS: FOLIC ACID 1 MG TAB PO (08:51)
[2017-09-21] MEDS: LISINOPRIL 10 MG TAB PO (08:51)
[2017-09-21] MEDS: REPAGLINIDE 1 MG TAB PO ×3 (08:51→17:49)
[2017-09-21] MEDS: ATENOLOL 25 MG TAB PO (08:52)
[2017-09-21] MEDS: ENOXAPARIN 40 MG/0.4 ML SYG SC (08:54)
[2017-09-21] MEDS: PREGABALIN 75 MG CAP PO ×3 (08:58→20:35)
[2017-09-21] MEDS: NA PHOSPHATE/BIPHOS 133 ML ENEMA PR (11:12)
[2017-09-21] MEDS: hydrALAzine 20 MG INJ IV (19:48)
[2017-09-21] MEDS: OXYCODONE/ACETAMINOPHEN (5/325) TAB PO (20:35)
[2017-09-21] MEDS: traZODone 50 MG TAB PO (20:36)
[2017-09-21] MEDS: INSULIN GLARGINE [LANtus] 3 ML PEN SC (21:27)
[2017-09-22] MEDS: HYDROmorphONE 0.5 MG/0.5 ML SYG IV ×9 (00:15→23:21)
[2017-09-22] MEDS: ACCU-CHEK XX (02:27)
[2017-09-22] MEDS: PANTOPRAZOLE (EC) 40 MG TAB PO (06:16)
[2017-09-22] MEDS: LEVOTHYROXINE 100 MCG TAB PO (06:16)
[2017-09-22] MEDS: LIDOCAINE 2% JELLY 30 ML TOP ×3 (08:49→20:11)
[2017-09-22] MEDS: FOLIC ACID 1 MG TAB PO (09:16)
[2017-09-22] MEDS: PREGABALIN 75 MG CAP PO ×3 (09:16→20:06)
[2017-09-22] MEDS: REPAGLINIDE 1 MG TAB PO ×3 (09:16→17:47)
[2017-09-22] MEDS: LIOTHYRONINE 5 MCG TAB PO ×2 (09:16→20:06)
[2017-09-22] MEDS: CHOLECALCIFEROL 2,000 UNIT CAP PO (09:16)
[2017-09-22] MEDS: LISINOPRIL 10 MG TAB PO (09:17)
[2017-09-22] MEDS: SUCRALFATE 1 GM TAB PO ×3 (09:17→17:47)
[2017-09-22] MEDS: ATENOLOL 25 MG TAB PO (09:18)
[2017-09-22] MEDS: HYDROCORTISONE 1% 28 GM CR TOP ×2 (09:19→20:11)
[2017-09-22] MEDS: INSULIN ASPART [NOVOLOG] 3 ML PEN SC ×4 (09:21→20:10)
[2017-09-22] MEDS: ENOXAPARIN 40 MG/0.4 ML SYG SC (09:23)
[2017-09-22] MEDS: OXYCODONE/ACETAMINOPHEN (5/325) TAB PO ×2 (09:57→14:40)
[2017-09-22] MEDS: SENNA/DOCUSATE NA (8.6MG/50MG) TAB PO (17:47)
[2017-09-22] MEDS: INSULIN GLARGINE [LANtus] 3 ML PEN SC ×2 (20:00→20:31)
[2017-09-22] MEDS: traZODone 50 MG TAB PO (20:07)
[2017-09-22] MEDS: hydrALAzine 20 MG INJ IV (20:13)
[2017-09-23] MEDS: ACCU-CHEK XX (02:00)
[2017-09-23] MEDS: HYDROmorphONE 0.5 MG/0.5 ML SYG IV ×8 (02:20→22:58)
[2017-09-23] MEDS: LEVOTHYROXINE 100 MCG TAB PO (05:21)
[2017-09-23] MEDS: PANTOPRAZOLE (EC) 40 MG TAB PO (05:21)
[2017-09-23] MEDS: INSULIN ASPART [NOVOLOG] 3 ML PEN SC ×4 (07:50→20:33)
[2017-09-23] MEDS: LIOTHYRONINE 5 MCG TAB PO ×2 (08:18→20:20)
[2017-09-23] MEDS: PREGABALIN 75 MG CAP PO ×3 (08:18→20:20)
[2017-09-23] MEDS: CHOLECALCIFEROL 2,000 UNIT CAP PO (08:19)
[2017-09-23] MEDS: REPAGLINIDE 1 MG TAB PO ×3 (08:19→17:13)
[2017-09-23] MEDS: LISINOPRIL 20 MG TAB PO (08:19)
[2017-09-23] MEDS: SUCRALFATE 1 GM TAB PO ×3 (08:19→17:13)
[2017-09-23] MEDS: ATENOLOL 25 MG TAB PO (08:20)
[2017-09-23] MEDS: ENOXAPARIN 40 MG/0.4 ML SYG SC (08:24)
[2017-09-23] MEDS: LIDOCAINE 2% JELLY 30 ML TOP ×3 (11:17→20:20)
[2017-09-23] MEDS: HYDROCORTISONE 1% 28 GM CR TOP ×2 (12:56→20:21)
[2017-09-23] MEDS: ONDANSETRON 4 MG INJ IV (14:13)
[2017-09-23 15:36] LABS: ANA SCREEN NEGATIVE (NEGATIVE)
[2017-09-23] MEDS: traZODone 50 MG TAB PO (20:20)
[2017-09-23] MEDS: INSULIN GLARGINE [LANtus] 3 ML PEN SC (20:34)
[2017-09-24] MEDS: HYDROmorphONE 0.5 MG/0.5 ML SYG IV ×8 (01:50→22:58)
[2017-09-24] MEDS: ACCU-CHEK XX (02:06)
[2017-09-24] MEDS: LEVOTHYROXINE 100 MCG TAB PO (05:01)
[2017-09-24] MEDS: PANTOPRAZOLE (EC) 40 MG TAB PO (05:01)
[2017-09-24] MEDS: hydrALAzine 20 MG INJ IV (08:00)
[2017-09-24] MEDS: HYDROCORTISONE 1% 28 GM CR TOP ×2 (09:00→21:00)
[2017-09-24] MEDS: LIDOCAINE 2% JELLY 30 ML TOP ×3 (09:00→21:00)
[2017-09-24] MEDS: REPAGLINIDE 1 MG TAB PO ×3 (09:49→17:24)
[2017-09-24] MEDS: PREGABALIN 75 MG CAP PO ×3 (09:50→20:15)
[2017-09-24] MEDS: ATENOLOL 25 MG TAB PO (09:52)
[2017-09-24] MEDS: CHOLECALCIFEROL 2,000 UNIT CAP PO (09:52)
[2017-09-24] MEDS: ENOXAPARIN 40 MG/0.4 ML SYG SC (09:54)
[2017-09-24] MEDS: INSULIN ASPART [NOVOLOG] 3 ML PEN SC ×4 (09:54→21:00)
[2017-09-24] MEDS: TIZANIDINE 2 MG TAB PO ×2 (13:06→20:15)
[2017-09-24] MEDS: SOD CHLORIDE 0.9% 500 ML IV (15:05)
[2017-09-24] MEDS: traZODone 50 MG TAB PO (20:15)
[2017-09-24] MEDS: LISINOPRIL 20 MG TAB PO (20:15)
[2017-09-24] MEDS: INSULIN GLARGINE [LANtus] 3 ML PEN SC (20:24)
[2017-09-25] MEDS: HYDROmorphONE 0.5 MG/0.5 ML SYG IV ×8 (01:57→22:59)
[2017-09-25] MEDS: ACCU-CHEK XX (02:00)
[2017-09-25] MEDS: LEVOTHYROXINE 100 MCG TAB PO ×2 (06:00→06:06)
[2017-09-25] MEDS: PANTOPRAZOLE (EC) 40 MG TAB PO ×2 (06:00→06:06)
[2017-09-25] MEDS: LIOTHYRONINE 5 MCG TAB PO (07:20)
[2017-09-25] MEDS: INSULIN ASPART [NOVOLOG] 3 ML PEN SC ×4 (07:50→21:55)
[2017-09-25] MEDS: HYDROCORTISONE 1% 28 GM CR TOP ×2 (09:15→22:05)
[2017-09-25] MEDS: LIDOCAINE 2% JELLY 30 ML TOP ×3 (09:15→22:05)
[2017-09-25] MEDS: PREGABALIN 75 MG CAP PO ×3 (09:15→21:50)
[2017-09-25] MEDS: OXYCODONE/ACETAMINOPHEN (5/325) TAB PO ×2 (09:15→21:49)
[2017-09-25] MEDS: CHOLECALCIFEROL 2,000 UNIT CAP PO (09:16)
[2017-09-25] MEDS: REPAGLINIDE 1 MG TAB PO ×3 (09:16→17:02)
[2017-09-25] MEDS: LISINOPRIL 20 MG TAB PO ×2 (09:17→21:50)
[2017-09-25] MEDS: TIZANIDINE 2 MG TAB PO ×3 (09:17→21:50)
[2017-09-25] MEDS: ATENOLOL 25 MG TAB PO (09:17)
[2017-09-25] MEDS: ENOXAPARIN 40 MG/0.4 ML SYG SC (09:23)
[2017-09-25 14:57] LABS: CREATININE, RANDOM URINE 57 mg/dL (20-320); PROTEIN/CREATININE RATIO 1439 mg/g creat (21-161)
[2017-09-25] MEDS: MAGNESIUM HYDROXIDE 30ML CUP PO ×2 (18:30→21:00)
[2017-09-25] MEDS: BISACODYL (EC) 5 MG TAB PO (18:30)
[2017-09-25] MEDS: POLYETHYLENE GLYCOL 17 GM PACKET PO (21:00)
[2017-09-25] MEDS: traZODone 50 MG TAB PO (21:50)
[2017-09-25] MEDS: LACTOBACILLUS RHAMNOSUS CAP PO (21:51)
[2017-09-25] MEDS: SENNA/DOCUSATE NA (8.6MG/50MG) TAB PO (21:51)
[2017-09-25] MEDS: INSULIN GLARGINE [LANtus] 3 ML PEN SC (22:01)
[2017-09-26] MEDS: HYDROmorphONE 0.5 MG/0.5 ML SYG IV ×7 (02:04→23:14)
[2017-09-26] MEDS: ACCU-CHEK XX (02:27)
[2017-09-26 05:55] LABS: ADD MAN DIFF? NO
[2017-09-26] MEDS: LEVOTHYROXINE 100 MCG TAB PO (06:00)
[2017-09-26 06:01] LABS: WHITE BLOOD COUNT 4.4 10^3/ul (4.8-10.8)
[2017-09-26 06:01] LABS: BASOPHIL # 0.1 10^3/ul (0.0-0.1); BASOPHILS % 1.4 % (0.0-2.0); EOSINOPHILS # 0.1 10^3/ul (0.0-0.5); EOSINOPHILS % 1.1 % (0.0-7.0); HEMATOCRIT 34.8 % (37.0-47.0); HEMOGLOBIN 11.6 g/dl (12.0-16.0); LYMPHOCYTES # 1.1 10^3/ul (0.8-2.9); LYMPHOCYTES % 24.7 % (15.0-51.0); MEAN CORPUSCULAR HEMOGLOBIN 28.2 pg (29.0-33.0); MEAN CORPUSCULAR HGB CONC 33.3 g/dl (32.0-37.0); MEAN CORPUSCULAR VOLUME 84.7 fl (82.0-101.0); MEAN PLATELET VOLUME 8.5 fl (7.4-10.4); MONOCYTE # 0.4 10^3/ul (0.3-0.9); MONOCYTES % 8.8 % (0.0-11.0); NEUTROPHIL # 2.8 10^3/ul (1.6-7.5); NEUTROPHILS % 63.3 % (39.0-77.0); PLATELET COUNT 234 10^3/UL (140-415); RED BLOOD COUNT 4.11 10^6/ul (4.20-5.40); RED CELL DISTRIBUTION WIDTH 18.9 % (11.5-14.5)
[2017-09-26 06:29] LABS: ALANINE AMINOTRANSFERASE 30 IU/L (13-69); ALBUMIN 3.6 g/dl (3.3-4.9); ALBUMIN/GLOBULIN RATIO 1.05; ALKALINE PHOSPHATASE 57 IU/L (42-121); ANION GAP 14 (8-16); ASPARTATE AMINO TRANSFERASE 17 IU/L (15-46); BLOOD UREA NITROGEN 11 mg/dl (7-20); CALCIUM 9.4 mg/dl (8.4-10.2); CARBON DIOXIDE 31 mmol/L (21-31); CHLORIDE 103 mmol/L (97-110); CREATININE 0.42 mg/dl (0.44-1.00); GLUCOSE 136 mg/dl (70-220); MAGNESIUM 1.6 mg/dl (1.7-2.5); POTASSIUM 3.8 mmol/L (3.5-5.1); SODIUM 144 mmol/L (135-144)
[2017-09-26] MEDS: LIOTHYRONINE 5 MCG TAB PO (07:20)
[2017-09-26] MEDS: REPAGLINIDE 1 MG TAB PO ×3 (07:20→17:25)
[2017-09-26] MEDS: INSULIN ASPART [NOVOLOG] 3 ML PEN SC ×4 (07:50→21:27)
[2017-09-26] MEDS: MAGNESIUM HYDROXIDE 30ML CUP PO ×2 (09:00→21:17)
[2017-09-26] MEDS: TIZANIDINE 2 MG TAB PO ×3 (09:00→21:17)
[2017-09-26] MEDS: ATENOLOL 25 MG TAB PO (09:00)
[2017-09-26] MEDS: LACTOBACILLUS RHAMNOSUS CAP PO ×2 (09:00→21:18)
[2017-09-26] MEDS: PREGABALIN 75 MG CAP PO ×3 (09:00→21:18)
[2017-09-26] MEDS: CHOLECALCIFEROL 2,000 UNIT CAP PO (09:00)
[2017-09-26] MEDS: HYDROCORTISONE 1% 28 GM CR TOP ×2 (09:00→21:00)
[2017-09-26] MEDS: LIDOCAINE 2% JELLY 30 ML TOP ×3 (09:00→21:00)
[2017-09-26] MEDS: LISINOPRIL 20 MG TAB PO ×2 (09:00→21:18)
[2017-09-26] MEDS: SENNA/DOCUSATE NA (8.6MG/50MG) TAB PO ×2 (09:00→21:17)
[2017-09-26] MEDS: ENOXAPARIN 40 MG/0.4 ML SYG SC (09:00)
[2017-09-26] MEDS: POLYETHYLENE GLYCOL 17 GM PACKET PO ×2 (09:00→21:18)
[2017-09-26] MEDS: FAMOTIDINE 20 MG TAB PO (09:00)
[2017-09-26] MEDS: BISACODYL (EC) 5 MG TAB PO (09:00)
[2017-09-26] MEDS: KETOROLAC 15 MG INJ IV (09:32)
[2017-09-26] MEDS: OXYCODONE/ACETAMINOPHEN (10/325) TAB PO (12:21)
[2017-09-26] MEDS ORDERED: HYDROmorphONE 0.5 MG/0.5 ML SYG IV (13:00)
[2017-09-26] MEDS: INSULIN GLARGINE [LANtus] 3 ML PEN SC (21:28)
[2017-09-27] MEDS: ACCU-CHEK XX (03:00)
[2017-09-27] MEDS: HYDROmorphONE 0.5 MG/0.5 ML SYG IV ×4 (03:03→13:53)
[2017-09-27] MEDS: LORAZEPAM 2 MG INJ IV (04:31)
[2017-09-27] MEDS: LEVOTHYROXINE 100 MCG TAB PO (06:58)
[2017-09-27] MEDS: HYDROCORTISONE 1% 28 GM CR TOP ×2 (09:00→21:00)
[2017-09-27] MEDS: POLYETHYLENE GLYCOL 17 GM PACKET PO ×2 (09:00→21:00)
[2017-09-27] MEDS: LACTOBACILLUS RHAMNOSUS CAP PO ×2 (09:00→21:19)
[2017-09-27] MEDS: MAGNESIUM HYDROXIDE 30ML CUP PO ×2 (09:00→21:00)
[2017-09-27] MEDS: CHOLECALCIFEROL 2,000 UNIT CAP PO (09:00)
[2017-09-27] MEDS: LIDOCAINE 2% JELLY 30 ML TOP ×3 (09:00→21:00)
[2017-09-27] MEDS: FAMOTIDINE 20 MG TAB PO (09:01)
[2017-09-27] MEDS: PREGABALIN 75 MG CAP PO ×3 (09:01→21:30)
[2017-09-27] MEDS: BISACODYL (EC) 5 MG TAB PO (09:01)
[2017-09-27] MEDS: SENNA/DOCUSATE NA (8.6MG/50MG) TAB PO ×2 (09:01→21:20)
[2017-09-27] MEDS: LIOTHYRONINE 5 MCG TAB PO (09:02)
[2017-09-27] MEDS: LISINOPRIL 20 MG TAB PO ×2 (09:02→21:19)
[2017-09-27] MEDS: REPAGLINIDE 1 MG TAB PO ×3 (09:02→17:25)
[2017-09-27] MEDS: TIZANIDINE 2 MG TAB PO ×3 (09:03→21:19)
[2017-09-27] MEDS: ATENOLOL 25 MG TAB PO (09:03)
[2017-09-27] MEDS: ENOXAPARIN 40 MG/0.4 ML SYG SC (09:04)
[2017-09-27] MEDS: INSULIN ASPART [NOVOLOG] 3 ML PEN SC ×4 (09:05→21:00)
[2017-09-27 11:20] LABS: ADD MAN DIFF? NO
[2017-09-27 11:25] LABS: BASOPHIL # 0.1 10^3/ul (0.0-0.1); EOSINOPHILS % 0.4 % (0.0-7.0); HEMATOCRIT 37.9 % (37.0-47.0); HEMOGLOBIN 12.5 g/dl (12.0-16.0); LYMPHOCYTES # 0.9 10^3/ul (0.8-2.9); LYMPHOCYTES % 16.8 % (15.0-51.0); MEAN CORPUSCULAR HEMOGLOBIN 27.9 pg (29.0-33.0); MEAN CORPUSCULAR VOLUME 84.6 fl (82.0-101.0); MEAN PLATELET VOLUME 8.5 fl (7.4-10.4); MONOCYTE # 0.4 10^3/ul (0.3-0.9); MONOCYTES % 7.4 % (0.0-11.0); NEUTROPHIL # 3.8 10^3/ul (1.6-7.5); NEUTROPHILS % 73.8 % (39.0-77.0); PLATELET COUNT 265 10^3/UL (140-415); RED BLOOD COUNT 4.48 10^6/ul (4.20-5.40); RED CELL DISTRIBUTION WIDTH 18.6 % (11.5-14.5)
[2017-09-27 11:25] LABS: WHITE BLOOD COUNT 5.2 10^3/ul (4.8-10.8)
[2017-09-27] MEDS: hydrALAzine 20 MG INJ IV (11:32)
[2017-09-27 11:48] LABS: ALANINE AMINOTRANSFERASE 26 IU/L (13-69); ALBUMIN 4.3 g/dl (3.3-4.9); ALBUMIN/GLOBULIN RATIO 1.16; ALKALINE PHOSPHATASE 67 IU/L (42-121); ANION GAP 17 (8-16); ASPARTATE AMINO TRANSFERASE 22 IU/L (15-46); BILIRUBIN,INDIRECT 0.2 mg/dl (0-1.1); BILIRUBIN,TOTAL 0.2 mg/dl (0.2-1.3); BLOOD UREA NITROGEN 12 mg/dl (7-20); CARBON DIOXIDE 28 mmol/L (21-31); CHLORIDE 101 mmol/L (97-110); CREATININE 0.34 mg/dl (0.44-1.00); GLUCOSE 198 mg/dl (70-220); PHOSPHORUS 4.6 mg/dl (2.5-4.9); POTASSIUM 3.8 mmol/L (3.5-5.1); SODIUM 142 mmol/L (135-144)
[2017-09-27 11:51] LABS: INR 0.99; PROTIME 13.2 Sec (11.9-14.9)
[2017-09-27 11:56] LABS: PARTIAL THROMBOPLASTIN TIME 29.7 Sec (25.0-35.0)
[2017-09-27 12:04] LABS: MAGNESIUM 1.6 mg/dl (1.7-2.5)
[2017-09-27] MEDS ORDERED: LIDOCAINE 1% (MDV) 20 ML INJ (17:47)
[2017-09-27] MEDS ORDERED: ALBUMIN HUMAN 5% 3,000 ML IV (18:00)
[2017-09-27] MEDS ORDERED: CA GLUCONATE (50 MG/ML) IV SYG IV* (18:00)
[2017-09-27] MEDS: [UNRECOGNIZED DRUG - OTHER] INJ (19:30)
[2017-09-27] MEDS: CALCIUM GLUCONATE 10% 2 GM in DEXTROSE 5% 100 ML IVPB (19:35)
[2017-09-27] MEDS: ALBUMIN HUMAN 5% 3,000 ML IV (19:38)
[2017-09-27] MEDS: INSULIN GLARGINE [LANtus] 3 ML PEN SC (21:14)
[2017-09-28] MEDS: KETOROLAC 30 MG INJ IV ×3 (00:10→23:12)
[2017-09-28] MEDS: ACCU-CHEK XX (02:33)
[2017-09-28] MEDS: HYDROmorphONE 0.5 MG/0.5 ML SYG IV ×3 (04:16→18:44)
[2017-09-28] MEDS: SOD CHLORIDE 0.9% 500 ML IV (05:00)
[2017-09-28 05:45] LABS: ADD MAN DIFF? NO
[2017-09-28 05:48] LABS: BASOPHIL # 0.1 10^3/ul (0.0-0.1); BASOPHILS % 0.6 % (0.0-2.0); EOSINOPHILS # 0.1 10^3/ul (0.0-0.5); EOSINOPHILS % 0.5 % (0.0-7.0); HEMATOCRIT 33.8 % (37.0-47.0); HEMOGLOBIN 11.2 g/dl (12.0-16.0); LYMPHOCYTES # 1.4 10^3/ul (0.8-2.9); LYMPHOCYTES % 14.4 % (15.0-51.0); MEAN CORPUSCULAR HEMOGLOBIN 28.9 pg (29.0-33.0); MEAN CORPUSCULAR HGB CONC 33.1 g/dl (32.0-37.0); MEAN CORPUSCULAR VOLUME 87.1 fl (82.0-101.0); MEAN PLATELET VOLUME 8.7 fl (7.4-10.4); MONOCYTE # 0.7 10^3/ul (0.3-0.9); MONOCYTES % 7.2 % (0.0-11.0); NEUTROPHIL # 7.6 10^3/ul (1.6-7.5); PLATELET COUNT 221 10^3/UL (140-415); RED BLOOD COUNT 3.88 10^6/ul (4.20-5.40); RED CELL DISTRIBUTION WIDTH 19.5 % (11.5-14.5)
[2017-09-28 05:48] LABS: WHITE BLOOD COUNT 9.9 10^3/ul (4.8-10.8)
[2017-09-28] MEDS: POLYETHYLENE GLYCOL 17 GM PACKET PO ×3 (05:55→21:00)
[2017-09-28] MEDS: MAGNESIUM HYDROXIDE 30ML CUP PO ×2 (05:55→09:35)
[2017-09-28] MEDS: LEVOTHYROXINE 100 MCG TAB PO (05:56)
[2017-09-28 06:06] LABS: ALANINE AMINOTRANSFERASE 18 IU/L (13-69); ALBUMIN 3.3 g/dl (3.3-4.9); ALBUMIN/GLOBULIN RATIO 1.94; ALKALINE PHOSPHATASE 22 IU/L (42-121); ANION GAP 20 (8-16); ASPARTATE AMINO TRANSFERASE 12 IU/L (15-46); BILIRUBIN,INDIRECT 0.3 mg/dl (0-1.1); BILIRUBIN,TOTAL 0.3 mg/dl (0.2-1.3); BLOOD UREA NITROGEN 22 mg/dl (7-20); CARBON DIOXIDE 20 mmol/L (21-31); CHLORIDE 107 mmol/L (97-110); CREATININE 0.79 mg/dl (0.44-1.00); GLUCOSE 242 mg/dl (70-220); POTASSIUM 3.9 mmol/L (3.5-5.1); SODIUM 143 mmol/L (135-144)
[2017-09-28 06:11] LABS: INR 1.53; PROTIME 18.7 Sec (11.9-14.9); PT RATIO 1.5
[2017-09-28 06:12] LABS: PHOSPHORUS 5.7 mg/dl (2.5-4.9)
[2017-09-28 06:12] LABS: MAGNESIUM 1.5 mg/dl (1.7-2.5)
[2017-09-28] MEDS: HYDROCORTISONE 1% 28 GM CR TOP ×2 (09:00→21:00)
[2017-09-28] MEDS: PREGABALIN 75 MG CAP PO ×3 (09:35→20:30)
[2017-09-28] MEDS: SENNA/DOCUSATE NA (8.6MG/50MG) TAB PO ×2 (09:35→21:00)
[2017-09-28] MEDS: TIZANIDINE 2 MG TAB PO ×3 (09:35→20:29)
[2017-09-28] MEDS: FAMOTIDINE 20 MG TAB PO (09:35)
[2017-09-28] MEDS: REPAGLINIDE 1 MG TAB PO ×3 (09:36→18:41)
[2017-09-28] MEDS: LACTOBACILLUS RHAMNOSUS CAP PO ×2 (09:36→20:29)
[2017-09-28] MEDS: LISINOPRIL 20 MG TAB PO (09:36)
[2017-09-28] MEDS: ATENOLOL 25 MG TAB PO (09:36)
[2017-09-28] MEDS: LIOTHYRONINE 5 MCG TAB PO (09:37)
[2017-09-28] MEDS: CHOLECALCIFEROL 2,000 UNIT CAP PO (09:37)
[2017-09-28] MEDS: ENOXAPARIN 40 MG/0.4 ML SYG SC (09:41)
[2017-09-28] MEDS: INSULIN ASPART [NOVOLOG] 3 ML PEN SC ×5 (09:41→20:35)
[2017-09-28] MEDS: LIDOCAINE 2% JELLY 30 ML TOP ×3 (09:42→21:00)
[2017-09-28] MEDS: MAGNESIUM SULFATE 3 GM in DEXTROSE 5% 100 ML IVPB (09:42)
[2017-09-28] MEDS: PHYTONADIONE (1 MG/ML PO SYG) PO (11:34)
[2017-09-28] MEDS ORDERED: INSULIN LISPRO 100 UNIT/ML VIAL SC (15:40)
[2017-09-28] MEDS ORDERED: SPECIAL NON-STANDARD MEDICATION IV (17:30)
[2017-09-28] MEDS ORDERED: MISCELLANEOUS IV SOLUTION 1,000 ML IV (18:00)
[2017-09-28] MEDS: CALCIUM GLUCONATE 10% 2 GM in DEXTROSE 5% 100 ML IVPB (18:15)
[2017-09-28] MEDS: ALBUMIN HUMAN 5% 3,000 ML IV (18:15)
[2017-09-28] MEDS: LISINOPRIL 10 MG TAB PO (20:30)
[2017-09-28] MEDS: INSULIN GLARGINE [LANtus] 3 ML PEN SC (20:35)
[2017-09-28] MEDS: DIPHENHYDRAMINE 50 MG INJ IV (21:30)
[2017-09-29] MEDS ORDERED: DIPHENHYDRAMINE 50 MG INJ IV
[2017-09-29] MEDS: ONDANSETRON 4 MG INJ IV (00:05)
[2017-09-29] MEDS: HYDROmorphONE 0.5 MG/0.5 ML SYG IV ×4 (00:42→18:35)
[2017-09-29] MEDS: DIPHENHYDRAMINE 50 MG INJ IV ×3 (01:43→17:32)
[2017-09-29] MEDS: ACETAMINOPHEN 1000MG/100ML IV 100 ML IVPB (01:53)
[2017-09-29] MEDS: ACCU-CHEK XX (02:00)
[2017-09-29] MEDS: LIDOCAINE 2% JELLY 30 ML TOP ×4 (02:44→20:46)
[2017-09-29] MEDS: KETOROLAC 30 MG INJ IV (04:50)
[2017-09-29] MEDS: LEVOTHYROXINE 100 MCG TAB PO (05:20)
[2017-09-29] MEDS: OXYCODONE/ACETAMINOPHEN (10/325) TAB PO (05:23)
[2017-09-29] MEDS: hydrALAzine 20 MG INJ IV (05:26)
[2017-09-29 05:40] LABS: ADD MAN DIFF? NO
[2017-09-29 06:15] LABS: INR 1.45; PROTIME 17.9 Sec (11.9-14.9); PT RATIO 1.4
[2017-09-29 06:16] LABS: ANION GAP 16 (8-16); BLOOD UREA NITROGEN 12 mg/dl (7-20); CALCIUM 9.1 mg/dl (8.4-10.2); CARBON DIOXIDE 21 mmol/L (21-31); CHLORIDE 112 mmol/L (97-110); CREATININE 0.39 mg/dl (0.44-1.00); GLUCOSE 128 mg/dl (70-220); PHOSPHORUS 2.4 mg/dl (2.5-4.9); POTASSIUM 4.5 mmol/L (3.5-5.1); SODIUM 144 mmol/L (135-144)
[2017-09-29 07:20] LABS: BASOPHIL # 0.1 10^3/ul (0.0-0.1); BASOPHILS % 0.8 % (0.0-2.0); EOSINOPHILS # 0.1 10^3/ul (0.0-0.5); EOSINOPHILS % 1.6 % (0.0-7.0); HEMATOCRIT 32.9 % (37.0-47.0); LYMPHOCYTES # 1.1 10^3/ul (0.8-2.9); LYMPHOCYTES % 18.4 % (15.0-51.0); MEAN CORPUSCULAR HEMOGLOBIN 28.8 pg (29.0-33.0); MEAN CORPUSCULAR HGB CONC 33.4 g/dl (32.0-37.0); MEAN CORPUSCULAR VOLUME 86.1 fl (82.0-101.0); MEAN PLATELET VOLUME 8.6 fl (7.4-10.4); MONOCYTE # 0.6 10^3/ul (0.3-0.9); NEUTROPHIL # 4.3 10^3/ul (1.6-7.5); NEUTROPHILS % 69.7 % (39.0-77.0); PLATELET COUNT 199 10^3/UL (140-415); RED BLOOD COUNT 3.82 10^6/ul (4.20-5.40); RED CELL DISTRIBUTION WIDTH 19.2 % (11.5-14.5)
[2017-09-29 07:20] LABS: WHITE BLOOD COUNT 6.1 10^3/ul (4.8-10.8)
[2017-09-29] MEDS: INSULIN ASPART [NOVOLOG] 3 ML PEN SC ×7 (07:20→20:45)
[2017-09-29] MEDS: REPAGLINIDE 1 MG TAB PO ×3 (08:09→17:38)
[2017-09-29] MEDS: POLYETHYLENE GLYCOL 17 GM PACKET PO ×2 (08:09→20:44)
[2017-09-29] MEDS: LISINOPRIL 10 MG TAB PO ×2 (08:10→20:49)
[2017-09-29] MEDS: LACTOBACILLUS RHAMNOSUS CAP PO ×2 (08:10→20:44)
[2017-09-29] MEDS: FAMOTIDINE 20 MG TAB PO (08:10)
[2017-09-29] MEDS: MAGNESIUM HYDROXIDE 30ML CUP PO ×4 (08:10→22:03)
[2017-09-29] MEDS: CHOLECALCIFEROL 2,000 UNIT CAP PO (08:10)
[2017-09-29] MEDS: LIOTHYRONINE 5 MCG TAB PO (08:10)
[2017-09-29] MEDS: SENNA/DOCUSATE NA (8.6MG/50MG) TAB PO ×2 (08:10→20:44)
[2017-09-29] MEDS: ENOXAPARIN 40 MG/0.4 ML SYG SC (08:26)
[2017-09-29] MEDS: TIZANIDINE 4 MG TAB PO ×2 (08:28→12:21)
[2017-09-29] MEDS: ATENOLOL 25 MG TAB PO (08:29)
[2017-09-29] MEDS: PREGABALIN 75 MG CAP PO ×3 (09:28→20:44)
[2017-09-29] MEDS: SODIUM PHOSPHATE 30 MMOL in SOD CHLORIDE 0.9% 250 ML IVPB (10:17)
[2017-09-29] MEDS: HYDROCORTISONE 1% 28 GM CR TOP ×2 (10:29→20:46)
[2017-09-29] MEDS: CAPSAICIN 0.025% 60 GM CR TOP (20:46)
[2017-09-29] MEDS: INSULIN GLARGINE [LANtus] 3 ML PEN SC (20:52)
[2017-09-29 21:34] LABS: TYPE AND SCREEN 1 1
[2017-09-29] MEDS: ALBUMIN HUMAN 5% 500ML INJ CATHETER (21:41)
[2017-09-30] MEDS: HYDROmorphONE 0.5 MG/0.5 ML SYG IV ×5 (00:09→23:49)
[2017-09-30] MEDS: ACCU-CHEK XX ×2 (01:32→22:34)
[2017-09-30] MEDS: DIPHENHYDRAMINE 50 MG INJ IV ×3 (01:34→17:49)
[2017-09-30] MEDS: hydrALAzine 20 MG INJ IV ×2 (03:24→07:58)
[2017-09-30] MEDS: LEVOTHYROXINE 100 MCG TAB PO (05:56)
[2017-09-30] MEDS: LIDOCAINE 2% JELLY 30 ML TOP ×3 (07:58→21:13)
[2017-09-30] MEDS: REPAGLINIDE 1 MG TAB PO ×3 (08:43→17:54)
[2017-09-30] MEDS: LACTOBACILLUS RHAMNOSUS CAP PO ×2 (08:44→21:12)
[2017-09-30] MEDS: LIOTHYRONINE 5 MCG TAB PO (08:44)
[2017-09-30] MEDS: FAMOTIDINE 20 MG TAB PO (08:45)
[2017-09-30] MEDS: MAGNESIUM HYDROXIDE 30ML CUP PO ×2 (08:45→21:00)
[2017-09-30] MEDS: POLYETHYLENE GLYCOL 17 GM PACKET PO ×2 (08:45→21:00)
[2017-09-30] MEDS: PREGABALIN 75 MG CAP PO ×3 (08:45→21:12)
[2017-09-30] MEDS: SENNA/DOCUSATE NA (8.6MG/50MG) TAB PO ×2 (08:46→21:00)
[2017-09-30] MEDS: HYDROCORTISONE 1% 28 GM CR TOP ×2 (08:47→21:00)
[2017-09-30] MEDS: LISINOPRIL 10 MG TAB PO ×2 (08:47→21:12)
[2017-09-30] MEDS: CHOLECALCIFEROL 2,000 UNIT CAP PO (08:47)
[2017-09-30] MEDS: ATENOLOL 25 MG TAB PO (08:47)
[2017-09-30] MEDS: CAPSAICIN 0.025% 60 GM CR TOP ×3 (08:48→21:13)
[2017-09-30] MEDS: ENOXAPARIN 40 MG/0.4 ML SYG SC (08:50)
[2017-09-30] MEDS: INSULIN ASPART [NOVOLOG] 3 ML PEN SC ×7 (08:51→21:00)
[2017-09-30 11:59] LABS: ADD MAN DIFF? NO
[2017-09-30 12:17] LABS: INR 1.13; PROTIME 14.7 Sec (11.9-14.9); PT RATIO 1.1
[2017-09-30 12:18] LABS: PARTIAL THROMBOPLASTIN TIME 36.7 Sec (25.0-35.0)
[2017-09-30 12:19] LABS: WHITE BLOOD COUNT 10.5 10^3/ul (4.8-10.8)
[2017-09-30 12:19] LABS: BASOPHIL # 0.1 10^3/ul (0.0-0.1); BASOPHILS % 0.6 % (0.0-2.0); EOSINOPHILS # 0.1 10^3/ul (0.0-0.5); EOSINOPHILS % 0.6 % (0.0-7.0); HEMATOCRIT 35.8 % (37.0-47.0); HEMOGLOBIN 11.8 g/dl (12.0-16.0); LYMPHOCYTES # 1.2 10^3/ul (0.8-2.9); LYMPHOCYTES % 11.4 % (15.0-51.0); MEAN CORPUSCULAR HEMOGLOBIN 28.6 pg (29.0-33.0); MEAN CORPUSCULAR VOLUME 86.9 fl (82.0-101.0); MEAN PLATELET VOLUME 8.6 fl (7.4-10.4); MONOCYTE # 0.5 10^3/ul (0.3-0.9); MONOCYTES % 4.9 % (0.0-11.0); NEUTROPHIL # 8.7 10^3/ul (1.6-7.5); NEUTROPHILS % 82.1 % (39.0-77.0); PLATELET COUNT 227 10^3/UL (140-415); RED BLOOD COUNT 4.12 10^6/ul (4.20-5.40); RED CELL DISTRIBUTION WIDTH 20.2 % (11.5-14.5)
[2017-09-30 12:20] LABS: ANION GAP 15 (8-16); BLOOD UREA NITROGEN 5 mg/dl (7-20); CALCIUM 9.2 mg/dl (8.4-10.2); CARBON DIOXIDE 26 mmol/L (21-31); CHLORIDE 107 mmol/L (97-110); CREATININE 0.28 mg/dl (0.44-1.00); GLUCOSE 110 mg/dl (70-220); MAGNESIUM 1.7 mg/dl (1.7-2.5); PHOSPHORUS 3.3 mg/dl (2.5-4.9); SODIUM 144 mmol/L (135-144)
[2017-09-30] MEDS ORDERED: SPECIAL NON-STANDARD MEDICATION IV (16:00)
[2017-09-30] MEDS: ALBUMIN HUMAN 5% 500ML INJ CATHETER (17:37)
[2017-09-30] MEDS: CALCIUM GLUCONATE 10% 2 GM in SOD CHLORIDE 0.9% 100 ML IVPB (17:37)
[2017-09-30] MEDS: SPECIAL NON-STANDARD MEDICATION IV (17:37)
[2017-09-30] MEDS: INSULIN GLARGINE [LANtus] 3 ML PEN SC (21:16)
[2017-10-01] MEDS: DIPHENHYDRAMINE 50 MG INJ IV ×3 (01:41→18:11)
[2017-10-01] MEDS: LORAZEPAM 0.5 MG TAB PO ×2 (02:25→23:13)
[2017-10-01] MEDS: OXYCODONE/ACETAMINOPHEN (10/325) TAB PO ×3 (02:25→19:16)
[2017-10-01] MEDS: LEVOTHYROXINE 100 MCG TAB PO (05:19)
[2017-10-01 05:37] LABS: ADD MAN DIFF? NO
[2017-10-01 05:42] LABS: WHITE BLOOD COUNT 7.8 10^3/ul (4.8-10.8)
[2017-10-01 05:42] LABS: BASOPHIL # 0.1 10^3/ul (0.0-0.1); BASOPHILS % 0.6 % (0.0-2.0); EOSINOPHILS # 0.1 10^3/ul (0.0-0.5); EOSINOPHILS % 1.2 % (0.0-7.0); HEMATOCRIT 30.1 % (37.0-47.0); HEMOGLOBIN 9.9 g/dl (12.0-16.0); LYMPHOCYTES # 1.5 10^3/ul (0.8-2.9); LYMPHOCYTES % 18.9 % (15.0-51.0); MEAN CORPUSCULAR HEMOGLOBIN 28.7 pg (29.0-33.0); MEAN CORPUSCULAR HGB CONC 32.9 g/dl (32.0-37.0); MEAN CORPUSCULAR VOLUME 87.2 fl (82.0-101.0); MEAN PLATELET VOLUME 8.8 fl (7.4-10.4); MONOCYTE # 0.5 10^3/ul (0.3-0.9); MONOCYTES % 6.6 % (0.0-11.0); NEUTROPHIL # 5.6 10^3/ul (1.6-7.5); NEUTROPHILS % 72.3 % (39.0-77.0); PLATELET COUNT 192 10^3/UL (140-415); RED BLOOD COUNT 3.45 10^6/ul (4.20-5.40); RED CELL DISTRIBUTION WIDTH 20.2 % (11.5-14.5)
[2017-10-01] MEDS: HYDROmorphONE 0.5 MG/0.5 ML SYG IV ×4 (05:53→23:55)
[2017-10-01 06:04] LABS: PROTIME 18.4 Sec (11.9-14.9); PT RATIO 1.4
[2017-10-01 06:05] LABS: PARTIAL THROMBOPLASTIN TIME 34.7 Sec (25.0-35.0)
[2017-10-01 06:36] LABS: ALANINE AMINOTRANSFERASE 18 IU/L (13-69); ALBUMIN 3.4 g/dl (3.3-4.9); ALBUMIN/GLOBULIN RATIO 2.61; ANION GAP 14 (8-16); ASPARTATE AMINO TRANSFERASE 12 IU/L (15-46); BILIRUBIN,INDIRECT 0.1 mg/dl (0-1.1); BILIRUBIN,TOTAL 0.1 mg/dl (0.2-1.3); BLOOD UREA NITROGEN 5 mg/dl (7-20); CALCIUM 9.1 mg/dl (8.4-10.2); CARBON DIOXIDE 24 mmol/L (21-31); CHLORIDE 108 mmol/L (97-110); CREATININE 0.36 mg/dl (0.44-1.00); GLUCOSE 172 mg/dl (70-220); SODIUM 142 mmol/L (135-144); TOTAL PROTEIN 4.7 g/dl (6.1-8.1)
[2017-10-01 06:44] LABS: ALKALINE PHOSPHATASE < 20 IU/L (42-121)
[2017-10-01] MEDS: REPAGLINIDE 1 MG TAB PO ×3 (08:15→17:50)
[2017-10-01] MEDS: PREGABALIN 75 MG CAP PO ×3 (08:16→22:14)
[2017-10-01] MEDS: LACTOBACILLUS RHAMNOSUS CAP PO ×2 (08:16→22:14)
[2017-10-01] MEDS: LIOTHYRONINE 5 MCG TAB PO (08:16)
[2017-10-01] MEDS: SENNA/DOCUSATE NA (8.6MG/50MG) TAB PO ×2 (08:17→22:15)
[2017-10-01] MEDS: FAMOTIDINE 20 MG TAB PO (08:17)
[2017-10-01] MEDS: LISINOPRIL 10 MG TAB PO ×2 (08:17→22:17)
[2017-10-01] MEDS: CHOLECALCIFEROL 2,000 UNIT CAP PO (08:17)
[2017-10-01] MEDS: ATENOLOL 25 MG TAB PO (08:18)
[2017-10-01] MEDS: MAGNESIUM HYDROXIDE 30ML CUP PO ×2 (08:18→22:14)
[2017-10-01] MEDS: POLYETHYLENE GLYCOL 17 GM PACKET PO ×2 (08:18→22:16)
[2017-10-01] MEDS: CAPSAICIN 0.025% 60 GM CR TOP ×3 (08:19→22:32)
[2017-10-01] MEDS: LIDOCAINE 2% JELLY 30 ML TOP ×3 (08:20→22:33)
[2017-10-01] MEDS: HYDROCORTISONE 1% 28 GM CR TOP ×2 (08:26→21:00)
[2017-10-01] MEDS: INSULIN ASPART [NOVOLOG] 3 ML PEN SC ×7 (08:39→21:00)
[2017-10-01] MEDS: ENOXAPARIN 40 MG/0.4 ML SYG SC (08:41)
[2017-10-01] MEDS: hydrALAzine 20 MG INJ IV (11:35)
[2017-10-01] MEDS: ALBUMIN HUMAN 5% 500ML INJ CATHETER (15:30)
[2017-10-01] MEDS: SPECIAL NON-STANDARD MEDICATION HE (15:30)
[2017-10-01] MEDS ORDERED: CA GLUCONATE (50 MG/ML) IV SYG IV* (15:30)
[2017-10-01] MEDS ORDERED: ALBUMIN HUMAN 5% 2,000 ML IV (16:30)
[2017-10-01] MEDS: ALBUMIN HUMAN 5% 2,000 ML IVPB (17:00)
[2017-10-01 18:23] LABS: TYPE AND SCREEN 1 1
[2017-10-01] MEDS: CALCIUM GLUCONATE 10% 2 GM in SOD CHLORIDE 0.9% 100 ML IVPB (18:47)
[2017-10-01] MEDS: INSULIN GLARGINE [LANtus] 3 ML PEN SC (22:32)
[2017-10-02] MEDS: OXYCODONE/ACETAMINOPHEN (10/325) TAB PO ×3 (01:05→08:41)
[2017-10-02] MEDS: ACCU-CHEK XX (02:00)
[2017-10-02] MEDS: DIPHENHYDRAMINE 50 MG INJ IV ×2 (02:11→19:33)
[2017-10-02] MEDS: HYDROmorphONE 0.5 MG/0.5 ML SYG IV ×4 (05:20→20:41)
[2017-10-02] MEDS: LEVOTHYROXINE 75 MCG TAB PO (05:27)
[2017-10-02 05:28] LABS: ADD MAN DIFF? NO
[2017-10-02 05:33] LABS: WHITE BLOOD COUNT 7.5 10^3/ul (4.8-10.8)
[2017-10-02 05:33] LABS: BASOPHIL # 0.1 10^3/ul (0.0-0.1); BASOPHILS % 0.7 % (0.0-2.0); EOSINOPHILS # 0.1 10^3/ul (0.0-0.5); EOSINOPHILS % 1.9 % (0.0-7.0); HEMATOCRIT 32.4 % (37.0-47.0); HEMOGLOBIN 10.7 g/dl (12.0-16.0); LYMPHOCYTES # 1.8 10^3/ul (0.8-2.9); LYMPHOCYTES % 23.8 % (15.0-51.0); MEAN CORPUSCULAR HEMOGLOBIN 28.7 pg (29.0-33.0); MEAN CORPUSCULAR VOLUME 86.9 fl (82.0-101.0); MEAN PLATELET VOLUME 8.6 fl (7.4-10.4); MONOCYTE # 0.5 10^3/ul (0.3-0.9); NEUTROPHILS % 67.2 % (39.0-77.0); PLATELET COUNT 194 10^3/UL (140-415); RED BLOOD COUNT 3.73 10^6/ul (4.20-5.40); RED CELL DISTRIBUTION WIDTH 19.7 % (11.5-14.5)
[2017-10-02 05:58] LABS: ALANINE AMINOTRANSFERASE 26 IU/L (13-69); ALBUMIN 3.8 g/dl (3.3-4.9); ALBUMIN/GLOBULIN RATIO 2.11; ALKALINE PHOSPHATASE 26 IU/L (42-121); ANION GAP 16 (8-16); ASPARTATE AMINO TRANSFERASE 14 IU/L (15-46); BILIRUBIN,INDIRECT 0.2 mg/dl (0-1.1); BILIRUBIN,TOTAL 0.2 mg/dl (0.2-1.3); BLOOD UREA NITROGEN 10 mg/dl (7-20); CALCIUM 9.5 mg/dl (8.4-10.2); CARBON DIOXIDE 26 mmol/L (21-31); CHLORIDE 106 mmol/L (97-110); CREATININE 0.34 mg/dl (0.44-1.00); GLUCOSE 83 mg/dl (70-220); MAGNESIUM 1.6 mg/dl (1.7-2.5); PHOSPHORUS 3.4 mg/dl (2.5-4.9); POTASSIUM 3.9 mmol/L (3.5-5.1); SODIUM 144 mmol/L (135-144); TOTAL PROTEIN 5.6 g/dl (6.1-8.1)
[2017-10-02] MEDS ORDERED: LEVOTHYROXINE 100 MCG TAB PO (06:00)
[2017-10-02] MEDS: INSULIN ASPART [NOVOLOG] 3 ML PEN SC ×6 (07:20→20:47)
[2017-10-02] MEDS: PREGABALIN 75 MG CAP PO ×3 (08:41→21:48)
[2017-10-02] MEDS: CAPSAICIN 0.025% 60 GM CR TOP ×3 (09:00→21:00)
[2017-10-02] MEDS: LIDOCAINE 2% JELLY 30 ML TOP ×3 (09:00→21:49)
[2017-10-02] MEDS: HYDROCORTISONE 1% 28 GM CR TOP ×2 (09:00→21:00)
[2017-10-02] MEDS: MAGNESIUM HYDROXIDE 30ML CUP PO ×3 (09:00→21:00)
[2017-10-02] MEDS: LIOTHYRONINE 5 MCG TAB PO (09:19)
[2017-10-02] MEDS: REPAGLINIDE 1 MG TAB PO ×3 (09:20→18:06)
[2017-10-02] MEDS: LACTOBACILLUS RHAMNOSUS CAP PO ×2 (09:21→21:48)
[2017-10-02] MEDS: POLYETHYLENE GLYCOL 17 GM PACKET PO ×2 (09:21→21:00)
[2017-10-02] MEDS: FAMOTIDINE 20 MG TAB PO (09:21)
[2017-10-02] MEDS: SENNA/DOCUSATE NA (8.6MG/50MG) TAB PO ×2 (09:22→21:48)
[2017-10-02] MEDS: ATENOLOL 25 MG TAB PO (09:23)
[2017-10-02] MEDS: LISINOPRIL 10 MG TAB PO (09:23)
[2017-10-02] MEDS: CHOLECALCIFEROL 2,000 UNIT CAP PO (09:23)
[2017-10-02] MEDS: ENOXAPARIN 40 MG/0.4 ML SYG SC (09:24)
[2017-10-02] MEDS: MAGNESIUM SULFATE 3 GM in DEXTROSE 5% 100 ML IVPB (11:30)
[2017-10-02] MEDS: metFORMIN 500 MG TAB PO (18:06)
[2017-10-02] MEDS: INSULIN GLARGINE [LANtus] 3 ML PEN SC (20:51)
[2017-10-02] MEDS: LISINOPRIL 20 MG TAB PO (21:48)
[2017-10-03] MEDS ORDERED: LEVOTHYROXINE 150 MCG TAB PO (06:00)
== END 2017-10-02 22:09 | disposition home health service (06) | DRG 94 ==
LOC: MS1 17:47
PROC: 06HM33Z Insertion of Infusion Device into Right Femoral Vein, Percutaneous Approach (ICD-10-PCS; principal; 2017-09-27)
PROC: 30233K1 Transfusion of Nonautologous Frozen Plasma into Peripheral Vein, Percutaneous Approach (ICD-10-PCS; 2017-09-29)
PROC: 5A1D70Z Performance of Urinary Filtration, Intermittent, Less than 6 Hours Per Day (ICD-10-PCS; 2017-10-02)
DX: G61.0 Guillain-Barre syndrome (principal); G93.40 Encephalopathy, unspecified; I10 Essential (primary) hypertension; Z79.4 Long term (current) use of insulin; E89.0 Postprocedural hypothyroidism; E55.9 Vitamin D deficiency, unspecified; E11.42 Type 2 diabetes mellitus with diabetic polyneuropathy; D50.9 Iron deficiency anemia, unspecified; F43.20 Adjustment disorder, unspecified; F43.9 Reaction to severe stress, unspecified; R41.82 Altered mental status, unspecified; T40.605A Adverse effect of unspecified narcotics, initial encounter; Y92.239 Unspecified place in hospital as the place of occurrence of the external cause; E83.42 Hypomagnesemia; G89.29 Other chronic pain; M54.5 Low back pain; E11.65 Type 2 diabetes mellitus with hyperglycemia; M79.669 Pain in unspecified lower leg
CPT/HCPCS: 36430; 36514; 72146; 72148; 80048; 80053; 80069; 82570; 82728; 82962; 83540; 83735; 84100; 84120; 84156; 84166; 84439; 84443; 84481; 85025; 85384; 85610; 85730; 86038; 86850; 86900; 86901; 90935; 97110; 97162; 97165; 97530; 97535

== ENCOUNTER 2017-10-05 20:50 | Observation (INO) | payer OTHER ==
[2017-10-05] MEDS ORDERED: ONDANSETRON 4 MG INJ IV (22:30)
[2017-10-05] MEDS ORDERED: NACL 0.9% 3 ML SYG IV (22:30)
[2017-10-05] MEDS ORDERED: ACETAMINOPHEN 325 MG TAB PO (22:30)
[2017-10-05] MEDS ORDERED: HYDROCODONE/APAP (5/325) TAB PO (23:00)
[2017-10-05 23:18] LABS: ADD MAN DIFF? NO
[2017-10-05 23:19] LABS: WHITE BLOOD COUNT 6.9 10^3/ul (4.8-10.8)
[2017-10-05 23:19] LABS: BASOPHIL # 0.1 10^3/ul (0.0-0.1); BASOPHILS % 0.7 % (0.0-2.0); EOSINOPHILS # 0.2 10^3/ul (0.0-0.5); EOSINOPHILS % 2.5 % (0.0-7.0); HEMATOCRIT 31.8 % (37.0-47.0); HEMOGLOBIN 10.7 g/dl (12.0-16.0); LYMPHOCYTES % 29.3 % (15.0-51.0); MEAN CORPUSCULAR HEMOGLOBIN 28.9 pg (29.0-33.0); MEAN CORPUSCULAR HGB CONC 33.6 g/dl (32.0-37.0); MEAN CORPUSCULAR VOLUME 85.9 fl (82.0-101.0); MEAN PLATELET VOLUME 8.2 fl (7.4-10.4); MONOCYTE # 0.5 10^3/ul (0.3-0.9); MONOCYTES % 7.9 % (0.0-11.0); NEUTROPHIL # 4.1 10^3/ul (1.6-7.5); NEUTROPHILS % 59.3 % (39.0-77.0); PLATELET COUNT 291 10^3/UL (140-415); RED CELL DISTRIBUTION WIDTH 18.6 % (11.5-14.5)
[2017-10-05] MEDS: KETOROLAC 30 MG INJ IV (23:25)
[2017-10-05] MEDS ORDERED: GLUCOSE GEL 15 GRAM TUBE PO ×2 (23:30)
[2017-10-05] MEDS ORDERED: DEXTROSE 50% 50 ML SYRINGE IV ×2 (23:30)
[2017-10-05] MEDS ORDERED: GLUCAGON 1 MG INJ IM (23:30)
[2017-10-05] MEDS ORDERED: GLUCOSE GEL 15 GRAM TUBE BUCCAL (23:30)
[2017-10-05 23:36] LABS: ALANINE AMINOTRANSFERASE 35 IU/L (13-69); ALBUMIN 3.8 g/dl (3.3-4.9); ALBUMIN/GLOBULIN RATIO 1.52; ALKALINE PHOSPHATASE 50 IU/L (42-121); ANION GAP 13 (8-16); ASPARTATE AMINO TRANSFERASE 27 IU/L (15-46); BILIRUBIN,INDIRECT 0.2 mg/dl (0-1.1); BILIRUBIN,TOTAL 0.2 mg/dl (0.2-1.3); BLOOD UREA NITROGEN 15 mg/dl (7-20); CALCIUM 9.8 mg/dl (8.4-10.2); CARBON DIOXIDE 27 mmol/L (21-31); CHLORIDE 103 mmol/L (97-110); CREATININE 0.36 mg/dl (0.44-1.00); GLUCOSE 155 mg/dl (70-220); POTASSIUM 4.3 mmol/L (3.5-5.1); SODIUM 139 mmol/L (135-144); TOTAL PROTEIN 6.3 g/dl (6.1-8.1)
[2017-10-06] MEDS: PREGABALIN 75 MG CAP PO ×4 (00:23→20:17)
[2017-10-06] MEDS: INSULIN GLARGINE [LANtus] 3 ML PEN SC ×2 (01:47→20:31)
[2017-10-06] MEDS: ACCU-CHEK XX (01:48)
[2017-10-06] MEDS: LORAZEPAM 1 MG TAB PO (02:53)
[2017-10-06] MEDS: LORAZEPAM 2 MG INJ IM (03:30)
[2017-10-06] MEDS: LEVOTHYROXINE 75 MCG TAB PO (06:01)
[2017-10-06 06:35] LABS: HEMOGLOBIN A1C 6.4 % (0-5.9)
[2017-10-06] MEDS: LISINOPRIL 20 MG TAB PO (08:18)
[2017-10-06] MEDS: INSULIN ASPART [NOVOLOG] 3 ML PEN SC ×4 (08:19→20:31)
[2017-10-06 09:12] LABS: FREE T4 (FREE THYROXINE) 0.64 ng/dl (0.79-2.35)
[2017-10-06 09:12] LABS: FREE T3 1.77 pg/ml (2.77-5.27)
[2017-10-06] MEDS ORDERED: traMADol 50 MG TAB PO (09:30)
[2017-10-06] MEDS: CHOLECALCIFEROL 2,000 UNIT CAP PO (09:44)
[2017-10-06] MEDS: FERROUS SULFATE (EC) 325 MG TAB PO (09:44)
[2017-10-06] MEDS: ATENOLOL 25 MG TAB PO (09:44)
[2017-10-06] MEDS: hydrALAzine 20 MG INJ IV (11:22)
[2017-10-06] MEDS: NAPROXEN 500 MG TAB PO ×3 (11:22→20:17)
[2017-10-06] MEDS: LORAZEPAM 2 MG INJ IV ×2 (11:50→23:25)
[2017-10-06] MEDS: DULOXETINE 30 MG CAP DR PO (20:16)
[2017-10-07] MEDS: ACCU-CHEK XX (01:20)
[2017-10-07] MEDS: LORAZEPAM 2 MG INJ IV (03:29)
[2017-10-07] MEDS: LEVOTHYROXINE 75 MCG TAB PO (03:44)
[2017-10-07] MEDS: INSULIN ASPART [NOVOLOG] 3 ML PEN SC ×3 (08:00→17:03)
[2017-10-07] MEDS: PREGABALIN 75 MG CAP PO ×2 (08:13→12:18)
[2017-10-07] MEDS: NAPROXEN 500 MG TAB PO (08:13)
[2017-10-07] MEDS: CHOLECALCIFEROL 2,000 UNIT CAP PO (08:13)
[2017-10-07] MEDS: ATENOLOL 25 MG TAB PO (08:13)
[2017-10-07] MEDS: LISINOPRIL 20 MG TAB PO (08:13)
[2017-10-07] MEDS: FERROUS SULFATE (EC) 325 MG TAB PO (08:13)
[2017-10-07] MEDS: DULOXETINE 20 MG CAP DR PO ×2 (11:00→17:00)
[2017-10-07] MEDS: SOD FERRIC GLUC COMPLX 125 MG in SOD CHLORIDE 0.9% 100 ML IVPB (11:00)
[2017-10-07] MEDS: metFORMIN 500 MG TAB PO ×2 (12:18→17:04)
[2017-10-08] MEDS ORDERED: LEVOTHYROXINE 100 MCG TAB PO (06:00)
== END 2017-10-07 18:15 | disposition home or self-care (01) ==
LOC: PP2 10-06 09:52
DX: R53.1 Weakness (principal); E03.9 Hypothyroidism, unspecified; E11.9 Type 2 diabetes mellitus without complications; D64.9 Anemia, unspecified; D50.9 Iron deficiency anemia, unspecified; E55.9 Vitamin D deficiency, unspecified; F06.32 Mood disorder due to known physiological condition with major depressive-like episode; I10 Essential (primary) hypertension; Z76.5 Malingerer [conscious simulation]; Z91.14 Patient's other noncompliance with medication regimen; Z79.4 Long term (current) use of insulin; Z79.82 Long term (current) use of aspirin
CPT/HCPCS: 80053; 82962; 83036; 84439; 84443; 84481; 85025; 99217; G0378

== ENCOUNTER 2017-10-12 06:41 | Inpatient (IN) | payer OTHER ==
[2017-10-12] MEDS: ONDANSETRON 4 MG INJ IV (07:05)
[2017-10-12] MEDS: HYDROCODONE/APAP (10/325) TAB PO (07:30)
[2017-10-12] MEDS ORDERED: ACETAMINOPHEN 325 MG TAB PO (08:30)
[2017-10-12] MEDS ORDERED: ONDANSETRON 4 MG INJ IV (08:30)
[2017-10-12 08:37] LABS: ADD MAN DIFF? NO
[2017-10-12 08:43] LABS: WHITE BLOOD COUNT 9.4 10^3/ul (4.8-10.8)
[2017-10-12 08:43] LABS: BASOPHILS % 0.4 % (0.0-2.0); EOSINOPHILS # 0.1 10^3/ul (0.0-0.5); EOSINOPHILS % 0.5 % (0.0-7.0); HEMATOCRIT 32.5 % (37.0-47.0); HEMOGLOBIN 11.4 g/dl (12.0-16.0); LYMPHOCYTES # 0.8 10^3/ul (0.8-2.9); LYMPHOCYTES % 8.4 % (15.0-51.0); MEAN CORPUSCULAR HEMOGLOBIN 29.4 pg (29.0-33.0); MEAN CORPUSCULAR HGB CONC 35.1 g/dl (32.0-37.0); MEAN CORPUSCULAR VOLUME 83.8 fl (82.0-101.0); MEAN PLATELET VOLUME 8.5 fl (7.4-10.4); MONOCYTE # 0.5 10^3/ul (0.3-0.9); MONOCYTES % 5.4 % (0.0-11.0); NEUTROPHILS % 84.7 % (39.0-77.0); PLATELET COUNT 311 10^3/UL (140-415); RED BLOOD COUNT 3.88 10^6/ul (4.20-5.40); RED CELL DISTRIBUTION WIDTH 17.4 % (11.5-14.5)
[2017-10-12] MEDS ORDERED: NACL 0.9% 3 ML SYG IV (09:00)
[2017-10-12 09:03] LABS: ANION GAP 15 (8-16); BLOOD UREA NITROGEN 16 mg/dl (7-20); CALCIUM 9.4 mg/dl (8.4-10.2); CARBON DIOXIDE 26 mmol/L (21-31); CHLORIDE 95 mmol/L (97-110); SODIUM 132 mmol/L (135-144)
[2017-10-12 09:06] LABS: GLUCOSE 481 mg/dl (70-220)
[2017-10-12] MEDS ORDERED: DEXTROSE 50% 50 ML SYRINGE IV ×2 (09:30)
[2017-10-12] MEDS ORDERED: GLUCOSE GEL 15 GRAM TUBE PO ×2 (09:30)
[2017-10-12] MEDS ORDERED: GLUCAGON 1 MG INJ IM (09:30)
[2017-10-12] MEDS ORDERED: GLUCOSE GEL 15 GRAM TUBE BUCCAL (09:30)
[2017-10-12 10:26] LABS: MAGNESIUM 1.9 mg/dl (1.7-2.5)
[2017-10-12] MEDS: INSULIN GLARGINE [LANtus] 3 ML PEN SC (11:11)
[2017-10-12] MEDS: INSULIN LISPRO 100 UNIT/ML VIAL SC (11:15)
[2017-10-12] MEDS: ENOXAPARIN 40 MG/0.4 ML SYG SC (11:16)
[2017-10-12] MEDS: GABAPENTIN 300 MG CAP PO ×3 (11:25→20:11)
[2017-10-12] MEDS: LISINOPRIL 20 MG TAB PO (11:25)
[2017-10-12] MEDS: CHOLECALCIFEROL 2,000 UNIT CAP PO (11:26)
[2017-10-12] MEDS: NIFEdipine (XL) 30 MG TAB PO (11:26)
[2017-10-12] MEDS: IBUPROFEN 600 MG TAB PO ×2 (12:38→18:08)
[2017-10-12] MEDS: INSULIN ASPART [NOVOLOG] 3 ML PEN SC ×7 (12:42→20:11)
[2017-10-12] MEDS: traMADol 50 MG TAB PO ×2 (13:20→20:11)
[2017-10-12] MEDS: DULOXETINE 30 MG CAP DR PO (20:11)
[2017-10-12] MEDS: METOPROLOL 100 MG TAB PO (20:11)
[2017-10-12] MEDS: ATORVASTATIN 40 MG TAB PO (20:11)
[2017-10-12] MEDS ORDERED: INSULIN GLARGINE [LANtus] 3 ML PEN SC (21:00)
[2017-10-13] MEDS: ACCU-CHEK XX (01:51)
[2017-10-13] MEDS: traMADol 50 MG TAB PO ×4 (02:00→21:07)
[2017-10-13] MEDS: IBUPROFEN 600 MG TAB PO ×4 (05:06→18:31)
[2017-10-13] MEDS: PANTOPRAZOLE (EC) 40 MG TAB PO (08:12)
[2017-10-13] MEDS: ASPIRIN (EC) 81 MG TAB PO (08:12)
[2017-10-13] MEDS: LISINOPRIL 20 MG TAB PO (08:13)
[2017-10-13] MEDS: GABAPENTIN 300 MG CAP PO ×3 (08:13→20:48)
[2017-10-13] MEDS: LEVOTHYROXINE 75 MCG TAB PO (08:14)
[2017-10-13] MEDS: METOPROLOL 100 MG TAB PO ×2 (08:14→20:50)
[2017-10-13] MEDS: ENOXAPARIN 40 MG/0.4 ML SYG SC (08:17)
[2017-10-13] MEDS: INSULIN ASPART [NOVOLOG] 3 ML PEN SC ×7 (10:08→21:00)
[2017-10-13] MEDS: INSULIN GLARGINE [LANtus] 3 ML PEN SC (10:09)
[2017-10-13] MEDS ORDERED: NA PHOSPHATE/BIPHOS 133 ML ENEMA PR (10:30)
[2017-10-13] MEDS: NA PHOSPHATE/BIPHOS 133 ML ENEMA PR (10:58)
[2017-10-13] MEDS: CHOLECALCIFEROL 2,000 UNIT CAP PO (10:58)
[2017-10-13] MEDS: LACTOBACILLUS RHAMNOSUS CAP PO ×2 (12:00→21:00)
[2017-10-13] MEDS: DULOXETINE 30 MG CAP DR PO (20:48)
[2017-10-13] MEDS: ATORVASTATIN 40 MG TAB PO (20:48)
[2017-10-13] MEDS: SENNA/DOCUSATE NA (8.6MG/50MG) TAB PO (21:00)
[2017-10-13] MEDS: ONDANSETRON 4 MG INJ IV (21:01)
[2017-10-14] MEDS: ACCU-CHEK XX (02:00)
[2017-10-14] MEDS: ONDANSETRON 4 MG INJ IV ×2 (03:18→09:17)
[2017-10-14] MEDS: traMADol 50 MG TAB PO ×2 (03:21→21:06)
[2017-10-14 05:50] LABS: ADD MAN DIFF? NO
[2017-10-14 06:02] LABS: BASOPHILS % 0.6 % (0.0-2.0); EOSINOPHILS # 0.2 10^3/ul (0.0-0.5); EOSINOPHILS % 2.3 % (0.0-7.0); HEMATOCRIT 36.9 % (37.0-47.0); HEMOGLOBIN 13.1 g/dl (12.0-16.0); LYMPHOCYTES # 1.4 10^3/ul (0.8-2.9); LYMPHOCYTES % 20.7 % (15.0-51.0); MEAN CORPUSCULAR HEMOGLOBIN 29.5 pg (29.0-33.0); MEAN CORPUSCULAR HGB CONC 35.5 g/dl (32.0-37.0); MEAN CORPUSCULAR VOLUME 83.1 fl (82.0-101.0); MEAN PLATELET VOLUME 8.8 fl (7.4-10.4); MONOCYTE # 0.5 10^3/ul (0.3-0.9); MONOCYTES % 7.1 % (0.0-11.0); NEUTROPHIL # 4.8 10^3/ul (1.6-7.5); NEUTROPHILS % 68.9 % (39.0-77.0); PLATELET COUNT 258 10^3/UL (140-415); RED BLOOD COUNT 4.44 10^6/ul (4.20-5.40); RED CELL DISTRIBUTION WIDTH 17.6 % (11.5-14.5)
[2017-10-14 06:40] LABS: ALANINE AMINOTRANSFERASE 29 IU/L (13-69); ALBUMIN 3.6 g/dl (3.3-4.9); ALBUMIN/GLOBULIN RATIO 1.24; ALKALINE PHOSPHATASE 72 IU/L (42-121); ANION GAP 14 (8-16); ASPARTATE AMINO TRANSFERASE 30 IU/L (15-46); BILIRUBIN,INDIRECT 0.2 mg/dl (0-1.1); BILIRUBIN,TOTAL 0.2 mg/dl (0.2-1.3); BLOOD UREA NITROGEN 16 mg/dl (7-20); CALCIUM 9.4 mg/dl (8.4-10.2); CARBON DIOXIDE 27 mmol/L (21-31); CHLORIDE 100 mmol/L (97-110); CREATININE 0.36 mg/dl (0.44-1.00); GLUCOSE 143 mg/dl (70-220); MAGNESIUM 1.8 mg/dl (1.7-2.5); PHOSPHORUS 4.5 mg/dl (2.5-4.9); POTASSIUM 4.5 mmol/L (3.5-5.1); SODIUM 136 mmol/L (135-144); TOTAL PROTEIN 6.5 g/dl (6.1-8.1)
[2017-10-14] MEDS: INSULIN ASPART [NOVOLOG] 3 ML PEN SC ×7 (08:11→20:53)
[2017-10-14] MEDS: INSULIN GLARGINE [LANtus] 3 ML PEN SC (08:12)
[2017-10-14] MEDS: LEVOTHYROXINE 75 MCG TAB PO (08:38)
[2017-10-14] MEDS: METOPROLOL 100 MG TAB PO ×2 (08:45→20:51)
[2017-10-14] MEDS: ENOXAPARIN 40 MG/0.4 ML SYG SC (08:46)
[2017-10-14] MEDS: IBUPROFEN 600 MG TAB PO ×4 (08:46→20:50)
[2017-10-14] MEDS: LACTOBACILLUS RHAMNOSUS CAP PO ×2 (08:46→21:03)
[2017-10-14] MEDS: GABAPENTIN 300 MG CAP PO ×3 (08:47→20:50)
[2017-10-14] MEDS: LISINOPRIL 20 MG TAB PO (08:47)
[2017-10-14] MEDS: PANTOPRAZOLE (EC) 40 MG TAB PO (08:47)
[2017-10-14] MEDS: NIFEdipine (XL) 30 MG TAB PO (08:47)
[2017-10-14] MEDS: CHOLECALCIFEROL 2,000 UNIT CAP PO (08:48)
[2017-10-14] MEDS: ASPIRIN (EC) 81 MG TAB PO (08:56)
[2017-10-14] MEDS: DULOXETINE 30 MG CAP DR PO (20:50)
[2017-10-14] MEDS: SENNA/DOCUSATE NA (8.6MG/50MG) TAB PO (20:50)
[2017-10-14] MEDS: ATORVASTATIN 40 MG TAB PO (20:50)
[2017-10-15] MEDS: ACCU-CHEK XX (02:00)
[2017-10-15] MEDS: traMADol 50 MG TAB PO ×2 (02:51→20:17)
[2017-10-15] MEDS: LEVOTHYROXINE 75 MCG TAB PO (07:49)
[2017-10-15] MEDS: INSULIN ASPART [NOVOLOG] 3 ML PEN SC ×10 (07:59→20:53)
[2017-10-15] MEDS: INSULIN GLARGINE [LANtus] 3 ML PEN SC (08:00)
[2017-10-15] MEDS: ASPIRIN (EC) 81 MG TAB PO (08:24)
[2017-10-15] MEDS: ENOXAPARIN 40 MG/0.4 ML SYG SC (08:27)
[2017-10-15] MEDS: NIFEdipine (XL) 30 MG TAB PO (08:28)
[2017-10-15] MEDS: GABAPENTIN 300 MG CAP PO ×2 (08:29→13:11)
[2017-10-15] MEDS: CHOLECALCIFEROL 2,000 UNIT CAP PO (08:29)
[2017-10-15] MEDS: METOPROLOL 100 MG TAB PO ×2 (08:29→20:19)
[2017-10-15] MEDS: PANTOPRAZOLE (EC) 40 MG TAB PO (08:30)
[2017-10-15] MEDS: LISINOPRIL 20 MG TAB PO (08:31)
[2017-10-15] MEDS: LACTOBACILLUS RHAMNOSUS CAP PO ×2 (09:00→20:17)
[2017-10-15] MEDS: ACETAMINOPHEN 325 MG TAB PO (09:23)
[2017-10-15] MEDS: IBUPROFEN 600 MG TAB PO ×2 (12:20→18:01)
[2017-10-15] MEDS: Discontinue current oral sulfonylureas (glyburide, glipizide, and/or glimepiride) prior to XX (18:19)
[2017-10-15] MEDS: HYPOGLYCEMIA PROTOCOL when Glucose is <70 mg/dL or symptomatic <90 mg/dL. XX (18:20)
[2017-10-15 20:13] LABS: ADD UMIC YES; UR ASCORBIC ACID 40 mg/dL (NEGATIVE); UR BACTERIA FEW /HPF (NONE SEEN); UR BILIRUBIN (Dip) NEGATIVE (NEGATIVE); UR BLOOD (Dip) NEGATIVE (NEGATIVE); UR BUDDING YEAST MANY /HPF (NONE SEEN); UR CLARITY CLEAR (CLEAR); UR COLOR YELLOW (YELLOW); UR GLUCOSE (Dip) 3+ mg/dL (NEGATIVE); UR KETONES (Dip) TRACE mg/dL (NEGATIVE); UR LEUKOCYTE ESTERASE (Dip) 1+ Leu/ul (NEGATIVE); UR MUCUS MODERATE /HPF (NONE SEEN); UR NITRITE (Dip) NEGATIVE (NEGATIVE); UR RBC 6 /HPF (0-5); UR SPECIFIC GRAVITY (Dip) 1.021 (1.003-1.030); UR TOTAL PROTEIN (Dip) 2+ mg/dl (NEGATIVE); UR UROBILINOGEN (Dip) NEGATIVE (NEGATIVE); UR WBC 16 /HPF (0-5)
[2017-10-15] MEDS: NA PHOSPHATE/BIPHOS 133 ML ENEMA PR (20:16)
[2017-10-15] MEDS: GABAPENTIN 400 MG CAP PO (20:17)
[2017-10-15] MEDS: SENNA/DOCUSATE NA (8.6MG/50MG) TAB PO (20:17)
[2017-10-15] MEDS: DULOXETINE 30 MG CAP DR PO (20:17)
[2017-10-15] MEDS: ATORVASTATIN 40 MG TAB PO (20:17)
[2017-10-15] MEDS: DIPHENHYDRAMINE 50 MG CAP PO (21:47)
[2017-10-15] MEDS: DIPHENHYDRAMINE 50 MG INJ IV (22:15)
[2017-10-16] MEDS: traMADol 50 MG TAB PO (01:46)
[2017-10-16] MEDS: DIPHENHYDRAMINE 50 MG INJ IV ×3 (01:47→23:04)
[2017-10-16] MEDS: ACCU-CHEK XX (01:48)
[2017-10-16 05:43] LABS: ADD MAN DIFF? NO
[2017-10-16 05:47] LABS: BASOPHIL # 0.1 10^3/ul (0.0-0.1); BASOPHILS % 0.7 % (0.0-2.0); EOSINOPHILS # 0.2 10^3/ul (0.0-0.5); EOSINOPHILS % 2.5 % (0.0-7.0); HEMOGLOBIN 11.5 g/dl (12.0-16.0); LYMPHOCYTES # 1.6 10^3/ul (0.8-2.9); LYMPHOCYTES % 22.9 % (15.0-51.0); MEAN CORPUSCULAR HEMOGLOBIN 29.1 pg (29.0-33.0); MEAN CORPUSCULAR HGB CONC 34.8 g/dl (32.0-37.0); MEAN CORPUSCULAR VOLUME 83.5 fl (82.0-101.0); MEAN PLATELET VOLUME 8.2 fl (7.4-10.4); MONOCYTE # 0.5 10^3/ul (0.3-0.9); MONOCYTES % 7.8 % (0.0-11.0); NEUTROPHIL # 4.5 10^3/ul (1.6-7.5); NEUTROPHILS % 65.7 % (39.0-77.0); PLATELET COUNT 310 10^3/UL (140-415); RED BLOOD COUNT 3.95 10^6/ul (4.20-5.40)
[2017-10-16 05:47] LABS: WHITE BLOOD COUNT 6.9 10^3/ul (4.8-10.8)
[2017-10-16 06:13] LABS: ALANINE AMINOTRANSFERASE 33 IU/L (13-69); ALBUMIN 3.2 g/dl (3.3-4.9); ALBUMIN/GLOBULIN RATIO 1.06; ALKALINE PHOSPHATASE 56 IU/L (42-121); ANION GAP 9 (8-16); ASPARTATE AMINO TRANSFERASE 20 IU/L (15-46); BILIRUBIN,INDIRECT 0.2 mg/dl (0-1.1); BILIRUBIN,TOTAL 0.2 mg/dl (0.2-1.3); BLOOD UREA NITROGEN 11 mg/dl (7-20); CALCIUM 9.1 mg/dl (8.4-10.2); CARBON DIOXIDE 31 mmol/L (21-31); CHLORIDE 101 mmol/L (97-110); CREATININE 0.38 mg/dl (0.44-1.00); GLUCOSE 99 mg/dl (70-220); POTASSIUM 4.3 mmol/L (3.5-5.1); SODIUM 137 mmol/L (135-144); TOTAL PROTEIN 6.2 g/dl (6.1-8.1)
[2017-10-16] MEDS: INSULIN ASPART [NOVOLOG] 3 ML PEN SC ×7 (08:15→20:48)
[2017-10-16] MEDS: LACTOBACILLUS RHAMNOSUS CAP PO ×2 (08:50→21:35)
[2017-10-16] MEDS: GABAPENTIN 400 MG CAP PO ×3 (08:50→21:34)
[2017-10-16] MEDS: NIFEdipine (XL) 30 MG TAB PO (08:51)
[2017-10-16] MEDS: ASPIRIN (EC) 81 MG TAB PO (08:51)
[2017-10-16] MEDS: METOPROLOL 100 MG TAB PO ×2 (08:51→21:35)
[2017-10-16] MEDS: IBUPROFEN 600 MG TAB PO ×3 (08:51→18:00)
[2017-10-16] MEDS: LEVOTHYROXINE 75 MCG TAB PO (08:51)
[2017-10-16] MEDS: LISINOPRIL 20 MG TAB PO (08:51)
[2017-10-16] MEDS: CHOLECALCIFEROL 2,000 UNIT CAP PO (08:51)
[2017-10-16] MEDS: PANTOPRAZOLE (EC) 40 MG TAB PO (08:51)
[2017-10-16] MEDS: ENOXAPARIN 40 MG/0.4 ML SYG SC (09:13)
[2017-10-16] MEDS: INSULIN GLARGINE [LANtus] 3 ML PEN SC (09:13)
[2017-10-16] MEDS ORDERED: DIPHENHYDRAMINE 25 MG CAP PO (11:30)
[2017-10-16] MEDS: DULOXETINE 30 MG CAP DR PO (21:34)
[2017-10-16] MEDS: CEFTRIAXONE 1 GM/50 ML (PMX) 50 ML IVPB (21:34)
[2017-10-16] MEDS: ATORVASTATIN 40 MG TAB PO (21:34)
[2017-10-16] MEDS: SENNA/DOCUSATE NA (8.6MG/50MG) TAB PO (21:35)
[2017-10-17] MEDS: ACCU-CHEK XX (02:00)
[2017-10-17] MEDS: DIPHENHYDRAMINE 50 MG INJ IV ×2 (04:40→11:01)
[2017-10-17] MEDS ORDERED: LORAZEPAM 0.5 MG TAB PO (07:00)
[2017-10-17] MEDS: LORAZEPAM 2 MG INJ IV (08:09)
[2017-10-17] MEDS: INSULIN ASPART [NOVOLOG] 3 ML PEN SC ×4 (08:15→12:29)
[2017-10-17] MEDS: METOPROLOL 100 MG TAB PO (08:19)
[2017-10-17] MEDS: CHOLECALCIFEROL 2,000 UNIT CAP PO (08:19)
[2017-10-17] MEDS: IBUPROFEN 600 MG TAB PO ×2 (08:19→12:18)
[2017-10-17] MEDS: NIFEdipine (XL) 30 MG TAB PO (08:19)
[2017-10-17] MEDS: LISINOPRIL 20 MG TAB PO (08:19)
[2017-10-17] MEDS: GABAPENTIN 400 MG CAP PO ×2 (08:19→12:18)
[2017-10-17] MEDS: LACTOBACILLUS RHAMNOSUS CAP PO (08:20)
[2017-10-17] MEDS: LEVOTHYROXINE 75 MCG TAB PO (08:20)
[2017-10-17] MEDS: ASPIRIN (EC) 81 MG TAB PO (08:20)
[2017-10-17] MEDS: PANTOPRAZOLE (EC) 40 MG TAB PO (08:20)
[2017-10-17] MEDS: INSULIN GLARGINE [LANtus] 3 ML PEN SC (08:23)
[2017-10-17] MEDS: ENOXAPARIN 40 MG/0.4 ML SYG SC (08:23)
== END 2017-10-17 14:40 | disposition home or self-care (01) | DRG 95 ==
LOC: E/R 06:41 → MS2 08:30
DX: G61.0 Guillain-Barre syndrome (principal); G61.81 Chronic inflammatory demyelinating polyneuritis; E03.9 Hypothyroidism, unspecified; E11.65 Type 2 diabetes mellitus with hyperglycemia; Z91.14 Patient's other noncompliance with medication regimen; E55.9 Vitamin D deficiency, unspecified; D64.9 Anemia, unspecified; F32.9 Major depressive disorder, single episode, unspecified; E11.40 Type 2 diabetes mellitus with diabetic neuropathy, unspecified; R33.9 Retention of urine, unspecified; Z76.5 Malingerer [conscious simulation]
CPT/HCPCS: 72100; 80048; 80053; 81001; 82962; 83735; 84100; 84703; 85025; 87081; 97110; 97163; 97530

== ENCOUNTER 2017-10-22 10:59 | Emergency (ER) | payer OTHER ==
[2017-10-22 11:58] LABS: ADD MAN DIFF? NO
[2017-10-22 12:27] LABS: ALANINE AMINOTRANSFERASE 30 IU/L (13-69); ALBUMIN 3.4 g/dl (3.3-4.9); ALBUMIN/GLOBULIN RATIO 1.09; ALKALINE PHOSPHATASE 62 IU/L (42-121); ANION GAP 13 (8-16); ASPARTATE AMINO TRANSFERASE 29 IU/L (15-46); BILIRUBIN,INDIRECT 0.2 mg/dl (0-1.1); BILIRUBIN,TOTAL 0.2 mg/dl (0.2-1.3); BLOOD UREA NITROGEN 22 mg/dl (7-20); CARBON DIOXIDE 28 mmol/L (21-31); CHLORIDE 97 mmol/L (97-110); CREATININE 0.32 mg/dl (0.44-1.00); GLUCOSE 274 mg/dl (70-220); LIPASE 103 U/L (23-300); POTASSIUM 5.1 mmol/L (3.5-5.1); SODIUM 133 mmol/L (135-144); TOTAL PROTEIN 6.5 g/dl (6.1-8.1)
[2017-10-22 12:59] LABS: WHITE BLOOD COUNT 7.3 10^3/ul (4.8-10.8)
[2017-10-22 13:00] LABS: BASOPHIL # 0.1 10^3/ul (0.0-0.1); BASOPHILS % 0.7 % (0.0-2.0); EOSINOPHILS # 0.1 10^3/ul (0.0-0.5); EOSINOPHILS % 1.4 % (0.0-7.0); HEMOGLOBIN 11.4 g/dl (12.0-16.0); LYMPHOCYTES # 1.6 10^3/ul (0.8-2.9); LYMPHOCYTES % 22.4 % (15.0-51.0); MEAN CORPUSCULAR HEMOGLOBIN 29.9 pg (29.0-33.0); MEAN CORPUSCULAR HGB CONC 35.6 g/dl (32.0-37.0); MEAN PLATELET VOLUME 8.2 fl (7.4-10.4); MONOCYTE # 0.4 10^3/ul (0.3-0.9); MONOCYTES % 5.5 % (0.0-11.0); NEUTROPHIL # 5.1 10^3/ul (1.6-7.5); NEUTROPHILS % 69.5 % (39.0-77.0); PLATELET COUNT 264 10^3/UL (140-415); RED BLOOD COUNT 3.81 10^6/ul (4.20-5.40); RED CELL DISTRIBUTION WIDTH 16.6 % (11.5-14.5)
[2017-10-22] MEDS: IODIXANOL LOCM 100 ML BTL (13:12)
[2017-10-22] MEDS: SOD CHLORIDE 0.9% 100 ML (13:12)
[2017-10-22] MEDS: SOD CHLORIDE 0.9% 1,000 ML IV (15:50)
[2017-10-22] MEDS: ONDANSETRON 4 MG INJ IV (15:50)
[2017-10-22] MEDS: HYDROmorphONE 1 MG/5 ML IV SYRINGE IV (15:50)
[2017-10-22] MEDS: FAMOTIDINE 20 MG INJ IV (15:50)
== END 2017-10-22 16:30 | disposition home or self-care (01) ==
LOC: E/R 10:59
DX: R10.13 Epigastric pain (principal); E11.9 Type 2 diabetes mellitus without complications; E03.9 Hypothyroidism, unspecified; Z79.84 Long term (current) use of oral hypoglycemic drugs; Z79.82 Long term (current) use of aspirin
CPT/HCPCS: 36415; 74176; 80053; 83690; 85025; 96374; 96375; 99285-25

== ENCOUNTER 2017-10-24 22:17 | Emergency (ER) | payer OTHER ==
[2017-10-24] MEDS: HYDROmorphONE 2 MG/ML SYG IM (23:16)
[2017-10-24 23:58] LABS: ADD MAN DIFF? NO
[2017-10-25 00:05] LABS: BASOPHILS % 0.4 % (0.0-2.0); EOSINOPHILS # 0.1 10^3/ul (0.0-0.5); EOSINOPHILS % 0.8 % (0.0-7.0); HEMATOCRIT 32.4 % (37.0-47.0); HEMOGLOBIN 11.6 g/dl (12.0-16.0); LYMPHOCYTES # 1.4 10^3/ul (0.8-2.9); MEAN CORPUSCULAR HEMOGLOBIN 30.9 pg (29.0-33.0); MEAN CORPUSCULAR HGB CONC 35.8 g/dl (32.0-37.0); MEAN CORPUSCULAR VOLUME 86.4 fl (82.0-101.0); MEAN PLATELET VOLUME 9.6 fl (7.4-10.4); MONOCYTE # 0.5 10^3/ul (0.3-0.9); MONOCYTES % 5.5 % (0.0-11.0); NEUTROPHIL # 7.3 10^3/ul (1.6-7.5); NEUTROPHILS % 77.9 % (39.0-77.0); PLATELET COUNT 222 10^3/UL (140-415); RED BLOOD COUNT 3.75 10^6/ul (4.20-5.40); RED CELL DISTRIBUTION WIDTH 17.2 % (11.5-14.5)
[2017-10-25 00:05] LABS: WHITE BLOOD COUNT 9.4 10^3/ul (4.8-10.8)
[2017-10-25 00:26] LABS: ALANINE AMINOTRANSFERASE 39 IU/L (13-69); ALBUMIN 3.5 g/dl (3.3-4.9); ALBUMIN/GLOBULIN RATIO 1.16; ALKALINE PHOSPHATASE 85 IU/L (42-121); ANION GAP 12 (8-16); ASPARTATE AMINO TRANSFERASE 26 IU/L (15-46); BILIRUBIN,INDIRECT 0.1 mg/dl (0-1.1); BILIRUBIN,TOTAL 0.1 mg/dl (0.2-1.3); BLOOD UREA NITROGEN 21 mg/dl (7-20); CALCIUM 9.2 mg/dl (8.4-10.2); CARBON DIOXIDE 29 mmol/L (21-31); CHLORIDE 92 mmol/L (97-110); CREATININE 0.39 mg/dl (0.44-1.00); LIPASE 249 U/L (23-300); PARTIAL THROMBOPLASTIN TIME 26.6 Sec (25.0-35.0); POTASSIUM 4.8 mmol/L (3.5-5.1); PT RATIO 0.9; SODIUM 128 mmol/L (135-144); TOTAL PROTEIN 6.5 g/dl (6.1-8.1)
[2017-10-25 00:28] LABS: GLUCOSE 469 mg/dl (70-220)
[2017-10-25 00:37] LABS: PROTIME 11.4 Sec (11.9-14.9); TROPONIN-I < 0.012 ng/ml (0.00-0.12)
[2017-10-25 00:38] LABS: INR 0.82
[2017-10-25] MEDS: INSULIN LISPRO 100 UNIT/ML VIAL SC (01:00)
[2017-10-25 01:37] LABS: URINE PH (Dip) POC 6.5 (5.0-8.5)
[2017-10-25 01:37] LABS: URINE BLOOD (Dip) POC Trace-intact (NEGATIVE); URINE KETONES (Dip) POC Negative (NEGATIVE); URINE LEUKOCYTE EST (Dip) POC Negative (NEGATIVE); URINE NITRITE (Dip) POC Negative (NEGATIVE); URINE TOTAL PROTEIN POC 2+ (NEGATIVE)
[2017-10-25 02:47] LABS: ADD UMIC YES; UR ASCORBIC ACID 20 mg/dL (NEGATIVE); UR BACTERIA FEW /HPF (NONE SEEN); UR BILIRUBIN (Dip) NEGATIVE (NEGATIVE); UR BLOOD (Dip) NEGATIVE (NEGATIVE); UR BUDDING YEAST MANY /HPF (NONE SEEN); UR CLARITY CLEAR (CLEAR); UR COLOR STRAW (YELLOW); UR GLUCOSE (Dip) 3+ mg/dL (NEGATIVE); UR KETONES (Dip) NEGATIVE (NEGATIVE); UR LEUKOCYTE ESTERASE (Dip) NEGATIVE Leu/ul (NEGATIVE); UR NITRITE (Dip) NEGATIVE (NEGATIVE); UR RBC 0 /HPF (0-5); UR SPECIFIC GRAVITY (Dip) 1.029 (1.003-1.030); UR SQUAMOUS EPITHELIAL CELL FEW /HPF (FEW); UR TOTAL PROTEIN (Dip) 2+ mg/dl (NEGATIVE); UR UROBILINOGEN (Dip) NEGATIVE (NEGATIVE); UR WBC 6 /HPF (0-5)
== END 2017-10-25 03:19 | disposition home or self-care (01) ==
LOC: E/R 10-25 03:19
DX: G89.29 Other chronic pain (principal); I10 Essential (primary) hypertension; E11.9 Type 2 diabetes mellitus without complications; E03.9 Hypothyroidism, unspecified; R07.9 Chest pain, unspecified; Z79.4 Long term (current) use of insulin; Z79.82 Long term (current) use of aspirin; Z91.19 Patient's noncompliance with other medical treatment and regimen
CPT/HCPCS: 36415; 74018; 80053; 81001; 81003; 82962; 83690; 84484; 85025; 85610; 85730; 93005; 96372; 99285-25

== ENCOUNTER 2017-12-27 12:50 | Inpatient (IN) | payer BC, OTHER ==
[2017-12-27] MEDS ORDERED: ONDANSETRON 4 MG INJ IV (13:30)
[2017-12-27] MEDS: DIPHENHYDRAMINE 25 MG CAP PO (17:20)
[2017-12-27] MEDS: HYDROCODONE/APAP (10/325) TAB PO (17:20)
[2017-12-27] MEDS ORDERED: DIPHENHYDRAMINE 50 MG INJ (17:32)
[2017-12-27] MEDS: DIPHENHYDRAMINE 50 MG INJ IV (17:54)
[2017-12-27] MEDS: ACETAMINOPHEN 325 MG TAB PO (21:51)
[2017-12-27] MEDS: hydrALAzine 20 MG INJ IV (22:44)
[2017-12-28] MEDS ORDERED: NACL 0.9% 3 ML SYG IV
[2017-12-28] MEDS ORDERED: ONDANSETRON 4 MG INJ IV
[2017-12-28] MEDS ORDERED: GLUCOSE GEL 15 GRAM TUBE BUCCAL (00:30)
[2017-12-28] MEDS ORDERED: DEXTROSE 50% 50 ML SYRINGE IV ×2 (00:30)
[2017-12-28] MEDS ORDERED: GLUCAGON 1 MG INJ IM (00:30)
[2017-12-28] MEDS ORDERED: GLUCOSE GEL 15 GRAM TUBE PO ×2 (00:30)
[2017-12-28] MEDS: SOD CHLORIDE 0.9% 1,000 ML IV ×2 (00:31→20:10)
[2017-12-28] MEDS: CEFTRIAXONE 1 GM/50 ML (PMX) 50 ML IVPB ×2 (00:35→23:44)
[2017-12-28] MEDS: INSULIN ASPART [NOVOLOG] 3 ML PEN SC ×6 (01:03→20:20)
[2017-12-28] MEDS: ACCU-CHEK XX (02:00)
[2017-12-28] MEDS ORDERED: ACCU-CHEK XX ×2 (02:00)
[2017-12-28 05:46] LABS: ADD MAN DIFF? NO
[2017-12-28 06:02] LABS: BASOPHIL # 0.1 10^3/ul (0.0-0.1); BASOPHILS % 0.8 % (0.0-2.0); EOSINOPHILS # 0.1 10^3/ul (0.0-0.5); EOSINOPHILS % 1.4 % (0.0-7.0); HEMATOCRIT 33.8 % (37.0-47.0); LYMPHOCYTES # 1.3 10^3/ul (0.8-2.9); LYMPHOCYTES % 20.6 % (15.0-51.0); MEAN CORPUSCULAR HEMOGLOBIN 30.9 pg (29.0-33.0); MEAN CORPUSCULAR HGB CONC 35.5 g/dl (32.0-37.0); MEAN CORPUSCULAR VOLUME 87.1 fl (82.0-101.0); MEAN PLATELET VOLUME 8.6 fl (7.4-10.4); MONOCYTE # 0.4 10^3/ul (0.3-0.9); MONOCYTES % 5.9 % (0.0-11.0); NEUTROPHIL # 4.3 10^3/ul (1.6-7.5); NEUTROPHILS % 68.9 % (39.0-77.0); PLATELET COUNT 314 10^3/UL (140-415); RED BLOOD COUNT 3.88 10^6/ul (4.20-5.40); RED CELL DISTRIBUTION WIDTH 12.7 % (11.5-14.5)
[2017-12-28 06:02] LABS: WHITE BLOOD COUNT 6.2 10^3/ul (4.8-10.8)
[2017-12-28 06:48] LABS: ALANINE AMINOTRANSFERASE 17 IU/L (13-69); ALBUMIN 2.9 g/dl (3.3-4.9); ALBUMIN/GLOBULIN RATIO 0.82; ALKALINE PHOSPHATASE 93 IU/L (42-121); ANION GAP 9 (8-16); ASPARTATE AMINO TRANSFERASE 21 IU/L (15-46); BILIRUBIN,INDIRECT 0.2 mg/dl (0-1.1); BILIRUBIN,TOTAL 0.2 mg/dl (0.2-1.3); BLOOD UREA NITROGEN 13 mg/dl (7-20); CALCIUM 8.4 mg/dl (8.4-10.2); CARBON DIOXIDE 27 mmol/L (21-31); CHLORIDE 102 mmol/L (97-110); CREATININE 0.35 mg/dl (0.44-1.00); GLUCOSE 253 mg/dl (70-220); POTASSIUM 3.9 mmol/L (3.5-5.1); SODIUM 134 mmol/L (135-144); TOTAL PROTEIN 6.4 g/dl (6.1-8.1)
[2017-12-28] MEDS ORDERED: [UNRECOGNIZED DRUG - REMARK] XX (08:00)
[2017-12-28] MEDS: FAMOTIDINE 20 MG INJ IV ×2 (08:21→20:12)
[2017-12-28] MEDS: LEVOTHYROXINE 75 MCG TAB PO (08:30)
[2017-12-28] MEDS: HYDROCODONE/APAP (10/325) TAB PO (08:31)
[2017-12-28] MEDS: ENOXAPARIN 40 MG/0.4 ML SYG SC (08:45)
[2017-12-28] MEDS ORDERED: PENDING SANTYL ORDER FOR WOUND CARE XX (11:30)
[2017-12-28] MEDS: HYDROmorphONE 0.5 MG/0.5 ML SYG IV ×4 (11:39→23:45)
[2017-12-28] MEDS: COLLAGENASE 5 GM (UD JAR) TOP (17:48)
[2017-12-28] MEDS ORDERED: INSULIN GLARGINE [LANTus] (100 UNITS/ML) SYG SC (21:00)
[2017-12-28] MEDS: INSULIN GLARGINE [LANTus] (100 UNITS/ML) SYG SC (22:24)
[2017-12-29] MEDS: ACCU-CHEK XX (01:12)
[2017-12-29] MEDS: HYDROmorphONE 0.5 MG/0.5 ML SYG IV ×6 (04:03→23:42)
[2017-12-29 06:33] LABS: ALANINE AMINOTRANSFERASE 15 IU/L (13-69); ALBUMIN 2.9 g/dl (3.3-4.9); ALKALINE PHOSPHATASE 86 IU/L (42-121); ANION GAP 8 (8-16); ASPARTATE AMINO TRANSFERASE 17 IU/L (15-46); BILIRUBIN,INDIRECT 0.1 mg/dl (0-1.1); BILIRUBIN,TOTAL 0.1 mg/dl (0.2-1.3); BLOOD UREA NITROGEN 11 mg/dl (7-20); CALCIUM 8.4 mg/dl (8.4-10.2); CARBON DIOXIDE 30 mmol/L (21-31); CHLORIDE 102 mmol/L (97-110); CREATININE 0.31 mg/dl (0.44-1.00); GLUCOSE 123 mg/dl (70-220); POTASSIUM 3.8 mmol/L (3.5-5.1); SODIUM 136 mmol/L (135-144); TOTAL PROTEIN 6.5 g/dl (6.1-8.1)
[2017-12-29] MEDS: LEVOTHYROXINE 75 MCG TAB PO (07:46)
[2017-12-29] MEDS: INSULIN ASPART [NOVOLOG] 3 ML PEN SC ×5 (07:46→21:00)
[2017-12-29] MEDS: DOCUSATE SODIUM 100 MG CAP PO (08:00)
[2017-12-29] MEDS: FAMOTIDINE 20 MG INJ IV (08:00)
[2017-12-29] MEDS: ENOXAPARIN 40 MG/0.4 ML SYG SC (08:08)
[2017-12-29] MEDS: COLLAGENASE 5 GM (UD JAR) TOP (10:10)
[2017-12-29] MEDS: SOD CHLORIDE 0.9% 1,000 ML IV (10:11)
[2017-12-29] MEDS: MAGNESIUM HYDROXIDE 30ML CUP PO (13:15)
[2017-12-29] MEDS: LUBIPROSTONE 8 MCG CAPSULE PO ×2 (15:16→23:00)
[2017-12-29] MEDS: LIDOCAINE 1% (MDV) 10 ML INJ INFIL (19:47)
[2017-12-29] MEDS: FAMOTIDINE 20 MG TAB PO ×3 (21:00→21:22)
[2017-12-29] MEDS: INSULIN GLARGINE [LANTus] (100 UNITS/ML) SYG SC (21:12)
[2017-12-29] MEDS: CEFTRIAXONE 1 GM/50 ML (PMX) 50 ML IVPB (23:42)
[2017-12-30] MEDS: ACCU-CHEK XX (02:00)
[2017-12-30] MEDS: HYDROmorphONE 0.5 MG/0.5 ML SYG IV ×5 (03:56→20:31)
[2017-12-30] MEDS: INSULIN ASPART [NOVOLOG] 3 ML PEN SC ×7 (08:10→21:00)
[2017-12-30] MEDS: LUBIPROSTONE 8 MCG CAPSULE PO ×2 (08:16→20:34)
[2017-12-30] MEDS: FAMOTIDINE 20 MG TAB PO ×2 (08:16→20:34)
[2017-12-30] MEDS: LEVOTHYROXINE 75 MCG TAB PO (08:16)
[2017-12-30] MEDS: ENOXAPARIN 40 MG/0.4 ML SYG SC (08:25)
[2017-12-30] MEDS: COLLAGENASE 5 GM (UD JAR) TOP (09:00)
[2017-12-30] MEDS ORDERED: VANCOMYCIN IV PER PHARMACY XX (10:00)
[2017-12-30] MEDS: DIPHENHYDRAMINE 50 MG INJ IV (11:12)
[2017-12-30] MEDS: SOD CHLORIDE 0.9% 1,000 ML IV ×2 (12:32→23:47)
[2017-12-30] MEDS: VANCOMYCIN 1.25 GM in SOD CHLORIDE 0.9% 250 ML IVPB (13:32)
[2017-12-30 13:37] LABS: ADD MAN DIFF? NO
[2017-12-30 13:49] LABS: BASOPHILS % 0.6 % (0.0-2.0); EOSINOPHILS # 0.1 10^3/ul (0.0-0.5); EOSINOPHILS % 1.4 % (0.0-7.0); HEMATOCRIT 35.5 % (37.0-47.0); HEMOGLOBIN 12.8 g/dl (12.0-16.0); LYMPHOCYTES % 16.4 % (15.0-51.0); MEAN CORPUSCULAR HEMOGLOBIN 31.1 pg (29.0-33.0); MEAN CORPUSCULAR HGB CONC 36.1 g/dl (32.0-37.0); MEAN CORPUSCULAR VOLUME 86.4 fl (82.0-101.0); MEAN PLATELET VOLUME 8.5 fl (7.4-10.4); MONOCYTE # 0.3 10^3/ul (0.3-0.9); MONOCYTES % 4.3 % (0.0-11.0); NEUTROPHIL # 4.8 10^3/ul (1.6-7.5); NEUTROPHILS % 75.7 % (39.0-77.0); PLATELET COUNT 309 10^3/UL (140-415); RED BLOOD COUNT 4.11 10^6/ul (4.20-5.40); RED CELL DISTRIBUTION WIDTH 12.6 % (11.5-14.5)
[2017-12-30 13:49] LABS: WHITE BLOOD COUNT 6.3 10^3/ul (4.8-10.8)
[2017-12-30 13:50] LABS: HEMOGLOBIN A1C 11.8 % (0-5.9)
[2017-12-30 13:56] LABS: ANION GAP 11 (8-16); BLOOD UREA NITROGEN 7 mg/dl (7-20); CALCIUM 8.3 mg/dl (8.4-10.2); CARBON DIOXIDE 27 mmol/L (21-31); CHLORIDE 100 mmol/L (97-110); CREATININE 0.26 mg/dl (0.44-1.00); GLUCOSE 129 mg/dl (70-220); POTASSIUM 3.9 mmol/L (3.5-5.1); SODIUM 134 mmol/L (135-144)
[2017-12-30] MEDS: BISACODYL 10 MG SUPP PR (15:28)
[2017-12-30] MEDS: VANCOMYCIN 750 MG in SOD CHLORIDE 0.9% 150 ML IVPB (20:31)
[2017-12-30] MEDS: INSULIN GLARGINE [LANTus] (100 UNITS/ML) SYG SC (21:00)
[2017-12-31] MEDS: DIPHENHYDRAMINE 50 MG INJ IV (00:21)
[2017-12-31] MEDS: HYDROmorphONE 0.5 MG/0.5 ML SYG IV ×6 (00:21→20:21)
[2017-12-31] MEDS: ACCU-CHEK XX (02:00)
[2017-12-31] MEDS: VANCOMYCIN 750 MG in SOD CHLORIDE 0.9% 150 ML IVPB (04:20)
[2017-12-31] MEDS: INSULIN ASPART [NOVOLOG] 3 ML PEN SC ×8 (07:52→20:26)
[2017-12-31] MEDS: LEVOTHYROXINE 75 MCG TAB PO (08:25)
[2017-12-31] MEDS: LUBIPROSTONE 8 MCG CAPSULE PO ×2 (08:25→20:25)
[2017-12-31] MEDS: FAMOTIDINE 20 MG TAB PO ×2 (08:25→20:25)
[2017-12-31] MEDS: COLLAGENASE 5 GM (UD JAR) TOP (08:25)
[2017-12-31] MEDS: ENOXAPARIN 40 MG/0.4 ML SYG SC (09:01)
[2017-12-31 11:18] LABS: ADD MAN DIFF? NO
[2017-12-31 11:20] LABS: BASOPHIL # 0.1 10^3/ul (0.0-0.1); BASOPHILS % 0.6 % (0.0-2.0); EOSINOPHILS # 0.1 10^3/ul (0.0-0.5); EOSINOPHILS % 1.1 % (0.0-7.0); HEMATOCRIT 37.3 % (37.0-47.0); HEMOGLOBIN 13.4 g/dl (12.0-16.0); LYMPHOCYTES % 11.4 % (15.0-51.0); MEAN CORPUSCULAR HEMOGLOBIN 31.5 pg (29.0-33.0); MEAN CORPUSCULAR HGB CONC 35.9 g/dl (32.0-37.0); MEAN CORPUSCULAR VOLUME 87.8 fl (82.0-101.0); MEAN PLATELET VOLUME 8.5 fl (7.4-10.4); MONOCYTE # 0.4 10^3/ul (0.3-0.9); MONOCYTES % 4.8 % (0.0-11.0); NEUTROPHILS % 81.2 % (39.0-77.0); PLATELET COUNT 304 10^3/UL (140-415); RED BLOOD COUNT 4.25 10^6/ul (4.20-5.40); RED CELL DISTRIBUTION WIDTH 12.9 % (11.5-14.5)
[2017-12-31 11:20] LABS: WHITE BLOOD COUNT 8.6 10^3/ul (4.8-10.8)
[2017-12-31 11:37] LABS: ANION GAP 10 (8-16); BLOOD UREA NITROGEN 7 mg/dl (7-20); CALCIUM 8.3 mg/dl (8.4-10.2); CARBON DIOXIDE 27 mmol/L (21-31); CHLORIDE 104 mmol/L (97-110); CREATININE 0.52 mg/dl (0.44-1.00); GLUCOSE 125 mg/dl (70-220); POTASSIUM 3.7 mmol/L (3.5-5.1); SODIUM 137 mmol/L (135-144)
[2017-12-31 11:47] LABS: VANCOMYCIN,TROUGH 25.3 ug/ml (10.0-20.0)
[2017-12-31] MEDS: DOXYCYCLINE 100 MG TAB PO ×2 (17:45→20:25)
[2017-12-31] MEDS: INSULIN GLARGINE [LANTus] (100 UNITS/ML) SYG SC (20:54)
[2017-12-31] MEDS: SOD CHLORIDE 0.9% 1,000 ML IV (22:05)
[2017-12-31] MEDS: VANCOMYCIN 500MG/NS (PMX) 100 ML IVPB (22:09)
[2018-01-01] MEDS: HYDROmorphONE 0.5 MG/0.5 ML SYG IV ×6 (00:35→20:05)
[2018-01-01] MEDS: ACCU-CHEK XX (02:00)
[2018-01-01] MEDS: INSULIN ASPART [NOVOLOG] 3 ML PEN SC ×5 (08:15→20:59)
[2018-01-01] MEDS: LEVOTHYROXINE 75 MCG TAB PO (08:49)
[2018-01-01] MEDS: LUBIPROSTONE 8 MCG CAPSULE PO ×2 (08:50→20:55)
[2018-01-01] MEDS: FAMOTIDINE 20 MG TAB PO ×2 (08:50→20:55)
[2018-01-01] MEDS: DOXYCYCLINE 100 MG TAB PO ×2 (08:50→20:55)
[2018-01-01] MEDS: COLLAGENASE 5 GM (UD JAR) TOP (09:00)
[2018-01-01] MEDS: ENOXAPARIN 40 MG/0.4 ML SYG SC (09:00)
[2018-01-01] MEDS: VANCOMYCIN 500MG/NS (PMX) 100 ML IVPB ×2 (10:54→22:10)
[2018-01-01] MEDS: BISACODYL 10 MG SUPP PR (14:32)
[2018-01-01] MEDS: INSULIN GLARGINE [LANTus] (100 UNITS/ML) SYG SC (20:59)
[2018-01-02] MEDS: HYDROmorphONE 0.5 MG/0.5 ML SYG IV ×7 (00:03→23:41)
[2018-01-02] MEDS: DIPHENHYDRAMINE 50 MG INJ IV ×2 (00:03→11:30)
[2018-01-02] MEDS: ACCU-CHEK XX (02:00)
[2018-01-02 06:45] LABS: BLOOD UREA NITROGEN 9 mg/dl (7-20)
[2018-01-02 06:45] LABS: CREATININE 0.89 mg/dl (0.44-1.00)
[2018-01-02] MEDS: LUBIPROSTONE 8 MCG CAPSULE PO ×2 (08:11→20:10)
[2018-01-02] MEDS: COLLAGENASE 5 GM (UD JAR) TOP (08:11)
[2018-01-02] MEDS: FAMOTIDINE 20 MG TAB PO ×2 (08:11→20:10)
[2018-01-02] MEDS: DOXYCYCLINE 100 MG TAB PO ×2 (08:11→20:10)
[2018-01-02] MEDS: LEVOTHYROXINE 75 MCG TAB PO (08:11)
[2018-01-02] MEDS: INSULIN ASPART [NOVOLOG] 3 ML PEN SC ×4 (08:15→21:00)
[2018-01-02] MEDS: ENOXAPARIN 40 MG/0.4 ML SYG SC (08:16)
[2018-01-02] MEDS: VANCOMYCIN 500MG/NS (PMX) 100 ML IVPB (10:43)
[2018-01-02] MEDS ORDERED: DOXYCYCLINE 100 MG TAB PO (11:30)
[2018-01-02] MEDS: CIPROFLOXACIN 250 MG TAB NGT ×2 (12:08→17:41)
[2018-01-02] MEDS: INSULIN GLARGINE [LANTus] (100 UNITS/ML) SYG SC (21:41)
[2018-01-03] MEDS: ACCU-CHEK XX (02:00)
[2018-01-03] MEDS: DIPHENHYDRAMINE 50 MG INJ IV (02:32)
[2018-01-03] MEDS: HYDROmorphONE 0.5 MG/0.5 ML SYG IV ×5 (03:55→20:04)
[2018-01-03] MEDS: CIPROFLOXACIN 250 MG TAB NGT ×2 (06:10→18:11)
[2018-01-03] MEDS: DOCUSATE SODIUM 100 MG CAP PO (08:00)
[2018-01-03] MEDS: LEVOTHYROXINE 75 MCG TAB PO (08:00)
[2018-01-03] MEDS: DOXYCYCLINE 100 MG TAB PO ×2 (08:00→20:04)
[2018-01-03] MEDS: FAMOTIDINE 20 MG TAB PO ×2 (08:00→20:04)
[2018-01-03] MEDS: LUBIPROSTONE 8 MCG CAPSULE PO ×2 (08:00→20:04)
[2018-01-03] MEDS: INSULIN ASPART [NOVOLOG] 3 ML PEN SC ×4 (08:07→21:00)
[2018-01-03] MEDS: COLLAGENASE 5 GM (UD JAR) TOP (09:00)
[2018-01-03] MEDS: ENOXAPARIN 40 MG/0.4 ML SYG SC (09:54)
[2018-01-03] MEDS: INSULIN GLARGINE [LANTus] (100 UNITS/ML) SYG SC (21:36)
[2018-01-04] MEDS: HYDROmorphONE 0.5 MG/0.5 ML SYG IV ×6 (00:15→20:06)
[2018-01-04] MEDS: ACCU-CHEK XX (02:00)
[2018-01-04] MEDS: CIPROFLOXACIN 250 MG TAB NGT ×2 (06:17→18:44)
[2018-01-04] MEDS: INSULIN ASPART [NOVOLOG] 3 ML PEN SC ×4 (08:07→21:00)
[2018-01-04] MEDS: FAMOTIDINE 20 MG TAB PO ×2 (08:07→21:41)
[2018-01-04] MEDS: DOCUSATE SODIUM 100 MG CAP PO (08:07)
[2018-01-04] MEDS: BISACODYL (EC) 5 MG TAB PO (08:07)
[2018-01-04] MEDS: LEVOTHYROXINE 75 MCG TAB PO (08:07)
[2018-01-04] MEDS: LUBIPROSTONE 8 MCG CAPSULE PO ×2 (08:08→21:35)
[2018-01-04] MEDS: DOXYCYCLINE 100 MG TAB PO ×2 (08:12→21:34)
[2018-01-04] MEDS: ENOXAPARIN 40 MG/0.4 ML SYG SC (08:15)
[2018-01-04] MEDS: COLLAGENASE 5 GM (UD JAR) TOP (09:00)
[2018-01-04] MEDS: DIPHENHYDRAMINE 50 MG INJ IV (17:23)
[2018-01-04] MEDS: NA PHOSPHATE/BIPHOS 133 ML ENEMA PR (19:00)
[2018-01-04] MEDS ORDERED: MAGNESIUM HYDROXIDE 30ML CUP PO (19:00)
[2018-01-04] MEDS: INSULIN GLARGINE [LANTus] (100 UNITS/ML) SYG SC (21:36)
[2018-01-04] MEDS: BETHANECHOL 10 MG TAB PO (21:40)
[2018-01-05] MEDS: HYDROmorphONE 0.5 MG/0.5 ML SYG IV ×6 (00:04→20:05)
[2018-01-05] MEDS: ACCU-CHEK XX (02:29)
[2018-01-05] MEDS: DIPHENHYDRAMINE 50 MG INJ IV ×2 (02:55→14:31)
[2018-01-05] MEDS: CIPROFLOXACIN 250 MG TAB NGT ×2 (06:05→18:22)
[2018-01-05 06:55] LABS: HEMOGLOBIN 11.5 g/dl (12.0-16.0); MEAN CORPUSCULAR HEMOGLOBIN 30.1 pg (29.0-33.0); MEAN CORPUSCULAR HGB CONC 33.8 g/dl (32.0-37.0); RED BLOOD COUNT 3.82 10^6/ul (4.20-5.40); RED CELL DISTRIBUTION WIDTH 13.2 % (11.5-14.5)
[2018-01-05 07:02] LABS: MEAN PLATELET VOLUME 11.5 fl (7.4-10.4); POSITIVE DIFF @See below
[2018-01-05 07:03] LABS: ADD MAN DIFF? YES
[2018-01-05 07:19] LABS: ANION GAP 7 (8-16); BLOOD UREA NITROGEN 12 mg/dl (7-20); CARBON DIOXIDE 30 mmol/L (21-31); CHLORIDE 103 mmol/L (97-110); CREATININE 0.87 mg/dl (0.44-1.00); GLUCOSE 103 mg/dl (70-220); POTASSIUM 3.8 mmol/L (3.5-5.1); SODIUM 136 mmol/L (135-144)
[2018-01-05] MEDS: INSULIN ASPART [NOVOLOG] 3 ML PEN SC ×4 (08:05→21:00)
[2018-01-05 08:13] LABS: ANISOCYTOSIS 1+ (0-0); BAND NEUTROPHILS #M 0.5 10^3/ul (0.0-0.6); BAND NEUTROPHILS % (M) 12 % (0-4); BASOPHILS % (M) 1 % (0-2); EOSINOPHILS % (M) 2 % (0-7); LYMPHOCYTES #M 0.9 10^3/ul (0.8-2.9); LYMPHOCYTES % (M) 19 % (15-51); MICROCYTOSIS 1+ (0-0); MONOCYTE #M 0.2 10^3/ul (0.3-0.9); MONOCYTES % (M) 6 % (0-11); MYELOCYTES % (M) 1 % (0-0); PLATELET ESTIMATE SIG DECREASED; PLATELET MORPHOLOGY COMMENT @See below; POLYCHROMASIA 1+ (0-0); REACTIVE LYMPHOCYTES #M 0.1 10^3/ul (0.0-0.0); REACTIVE LYMPHOCYTES% (M) 3 % (0-0); SEG NEUT #M 2.8 10^3/ul (1.6-7.5); SEGMENTED NEUTROPHILS (M) % 56 % (39-77); SMUDGE%M 7 % (0-0)
[2018-01-05] MEDS: DOXYCYCLINE 100 MG TAB PO ×2 (08:17→22:07)
[2018-01-05] MEDS: LEVOTHYROXINE 75 MCG TAB PO (08:17)
[2018-01-05] MEDS: BETHANECHOL 10 MG TAB PO ×2 (08:17→13:31)
[2018-01-05] MEDS: COLLAGENASE 5 GM (UD JAR) TOP (08:18)
[2018-01-05] MEDS: LUBIPROSTONE 8 MCG CAPSULE PO ×2 (08:18→22:06)
[2018-01-05] MEDS: FAMOTIDINE 20 MG TAB PO ×2 (08:18→22:07)
[2018-01-05] MEDS: ENOXAPARIN 40 MG/0.4 ML SYG SC (08:25)
[2018-01-05 09:40] LABS: PLATELET COUNT 105 10^3/UL (140-415)
[2018-01-05 11:38] LABS: WHITE BLOOD COUNT 4.9 10^3/ul (4.8-10.8)
[2018-01-05] MEDS: INSULIN GLARGINE [LANTus] (100 UNITS/ML) SYG SC (22:15)
[2018-01-06] MEDS: HYDROmorphONE 0.5 MG/0.5 ML SYG IV ×6 (00:09→20:16)
[2018-01-06] MEDS: BETHANECHOL 10 MG TAB PO ×3 (00:57→12:31)
[2018-01-06] MEDS: ACCU-CHEK XX (02:00)
[2018-01-06] MEDS: DIPHENHYDRAMINE 50 MG INJ IV ×2 (03:39→18:33)
[2018-01-06] MEDS: CIPROFLOXACIN 250 MG TAB NGT ×2 (06:07→17:31)
[2018-01-06] MEDS: INSULIN ASPART [NOVOLOG] 3 ML PEN SC ×4 (07:54→20:27)
[2018-01-06] MEDS: FAMOTIDINE 20 MG TAB PO ×2 (08:23→20:19)
[2018-01-06] MEDS: LEVOTHYROXINE 75 MCG TAB PO (08:23)
[2018-01-06] MEDS: DOXYCYCLINE 100 MG TAB PO ×2 (08:23→20:18)
[2018-01-06] MEDS: LUBIPROSTONE 8 MCG CAPSULE PO ×2 (08:24→20:19)
[2018-01-06] MEDS: ENOXAPARIN 40 MG/0.4 ML SYG SC (08:27)
[2018-01-06] MEDS: COLLAGENASE 5 GM (UD JAR) TOP (09:00)
[2018-01-06] MEDS: BETHANECHOL 25 MG TAB PO ×2 (14:25→20:18)
[2018-01-06] MEDS: INSULIN GLARGINE [LANTus] (100 UNITS/ML) SYG SC (20:30)
[2018-01-07] MEDS: HYDROmorphONE 0.5 MG/0.5 ML SYG IV ×7 (00:02→23:55)
[2018-01-07] MEDS: ACCU-CHEK XX (02:00)
[2018-01-07 04:56] LABS: ADD UMIC YES; UR ASCORBIC ACID NEGATIVE (NEGATIVE); UR BILIRUBIN (Dip) NEGATIVE (NEGATIVE); UR BLOOD (Dip) NEGATIVE (NEGATIVE); UR CLARITY CLEAR (CLEAR); UR COLOR YELLOW (YELLOW); UR GLUCOSE (Dip) 1+ mg/dL (NEGATIVE); UR KETONES (Dip) TRACE mg/dL (NEGATIVE); UR LEUKOCYTE ESTERASE (Dip) NEGATIVE Leu/ul (NEGATIVE); UR NITRITE (Dip) NEGATIVE (NEGATIVE); UR RBC 1 /HPF (0-5); UR SPECIFIC GRAVITY (Dip) 1.013 (1.003-1.030); UR TOTAL PROTEIN (Dip) 1+ mg/dl (NEGATIVE); UR UROBILINOGEN (Dip) NEGATIVE (NEGATIVE); UR WBC 3 /HPF (0-5)
[2018-01-07] MEDS: CIPROFLOXACIN 250 MG TAB NGT ×2 (07:03→17:59)
[2018-01-07] MEDS: INSULIN ASPART [NOVOLOG] 3 ML PEN SC ×4 (08:14→20:21)
[2018-01-07] MEDS: COLLAGENASE 5 GM (UD JAR) TOP (09:00)
[2018-01-07] MEDS: LUBIPROSTONE 8 MCG CAPSULE PO ×2 (09:06→20:19)
[2018-01-07] MEDS: FAMOTIDINE 20 MG TAB PO ×2 (09:06→20:19)
[2018-01-07] MEDS: LEVOTHYROXINE 75 MCG TAB PO (09:06)
[2018-01-07] MEDS: DOXYCYCLINE 100 MG TAB PO ×2 (09:06→20:19)
[2018-01-07] MEDS: BETHANECHOL 25 MG TAB PO ×3 (09:06→20:24)
[2018-01-07] MEDS: ENOXAPARIN 40 MG/0.4 ML SYG SC (09:09)
[2018-01-07] MEDS: DIPHENHYDRAMINE 50 MG INJ IV ×2 (10:13→23:02)
[2018-01-07] MEDS: INSULIN GLARGINE [LANTus] (100 UNITS/ML) SYG SC (20:23)
[2018-01-08] MEDS: ACCU-CHEK XX (00:25)
[2018-01-08] MEDS: HYDROmorphONE 0.5 MG/0.5 ML SYG IV ×5 (04:07→20:02)
[2018-01-08 05:49] LABS: ADD MAN DIFF? NO
[2018-01-08 05:51] LABS: BASOPHIL # 0.1 10^3/ul (0.0-0.1); BASOPHILS % 1.2 % (0.0-2.0); EOSINOPHILS # 0.1 10^3/ul (0.0-0.5); EOSINOPHILS % 1.5 % (0.0-7.0); HEMATOCRIT 32.6 % (37.0-47.0); HEMOGLOBIN 11.4 g/dl (12.0-16.0); LYMPHOCYTES # 1.2 10^3/ul (0.8-2.9); LYMPHOCYTES % 29.8 % (15.0-51.0); MEAN CORPUSCULAR HEMOGLOBIN 30.6 pg (29.0-33.0); MEAN CORPUSCULAR VOLUME 87.4 fl (82.0-101.0); MEAN PLATELET VOLUME 8.6 fl (7.4-10.4); MONOCYTE # 0.4 10^3/ul (0.3-0.9); MONOCYTES % 10.4 % (0.0-11.0); NEUTROPHIL # 2.3 10^3/ul (1.6-7.5); NEUTROPHILS % 56.6 % (39.0-77.0); PLATELET COUNT 208 10^3/UL (140-415); RED BLOOD COUNT 3.73 10^6/ul (4.20-5.40); RED CELL DISTRIBUTION WIDTH 13.1 % (11.5-14.5)
[2018-01-08] MEDS: INSULIN ASPART [NOVOLOG] 3 ML PEN SC ×4 (08:15→20:15)
[2018-01-08] MEDS: FAMOTIDINE 20 MG TAB PO ×2 (08:16→20:05)
[2018-01-08] MEDS: CIPROFLOXACIN 250 MG TAB NGT ×2 (08:16→17:22)
[2018-01-08] MEDS: LUBIPROSTONE 8 MCG CAPSULE PO ×2 (08:17→20:05)
[2018-01-08] MEDS: DOXYCYCLINE 100 MG TAB PO ×2 (08:17→20:04)
[2018-01-08] MEDS: COLLAGENASE 5 GM (UD JAR) TOP (08:18)
[2018-01-08] MEDS: ENOXAPARIN 40 MG/0.4 ML SYG SC (08:28)
[2018-01-08] MEDS: LEVOTHYROXINE 75 MCG TAB PO (08:31)
[2018-01-08] MEDS: BETHANECHOL 25 MG TAB PO ×3 (08:37→20:05)
[2018-01-08] MEDS: DIPHENHYDRAMINE 50 MG INJ IV (15:40)
[2018-01-08] MEDS ORDERED: TAMSULOSIN (SR) 0.4 MG CAP PO (21:00)
[2018-01-08] MEDS: INSULIN GLARGINE [LANTus] (100 UNITS/ML) SYG SC (21:06)
[2018-01-09] MEDS: DIPHENHYDRAMINE 50 MG INJ IV ×3 (01:42→21:43)
[2018-01-09] MEDS: ACCU-CHEK XX (01:50)
[2018-01-09] MEDS: HYDROmorphONE 0.5 MG/0.5 ML SYG IV ×7 (04:01→23:54)
[2018-01-09] MEDS: CIPROFLOXACIN 250 MG TAB NGT ×3 (06:00→17:49)
[2018-01-09] MEDS: LEVOTHYROXINE 75 MCG TAB PO (08:09)
[2018-01-09] MEDS: BETHANECHOL 25 MG TAB PO ×3 (08:10→21:03)
[2018-01-09] MEDS: LUBIPROSTONE 8 MCG CAPSULE PO ×2 (08:11→21:03)
[2018-01-09] MEDS: FAMOTIDINE 20 MG TAB PO ×2 (08:11→21:03)
[2018-01-09] MEDS: DOXYCYCLINE 100 MG TAB PO ×2 (08:11→21:03)
[2018-01-09] MEDS: INSULIN ASPART [NOVOLOG] 3 ML PEN SC ×4 (08:15→21:05)
[2018-01-09] MEDS: ENOXAPARIN 40 MG/0.4 ML SYG SC (08:15)
[2018-01-09] MEDS: COLLAGENASE 5 GM (UD JAR) TOP (08:17)
[2018-01-09] MEDS: DOCUSATE SODIUM 100 MG CAP PO (11:35)
[2018-01-09] MEDS: FLUCONAZOLE 100 MG TAB PO (11:35)
[2018-01-09 14:26] LABS: HIV 1&2 ANTIBODY NEGATIVE (NEGATIVE)
[2018-01-09] MEDS: BISACODYL (EC) 5 MG TAB PO (21:03)
[2018-01-09] MEDS: INSULIN GLARGINE [LANTus] (100 UNITS/ML) SYG SC (21:06)
[2018-01-10] MEDS: ACCU-CHEK XX (02:00)
[2018-01-10] MEDS: HYDROmorphONE 0.5 MG/0.5 ML SYG IV ×5 (03:59→20:15)
[2018-01-10] MEDS: CIPROFLOXACIN 250 MG TAB NGT ×2 (06:22→17:33)
[2018-01-10] MEDS: DIPHENHYDRAMINE 50 MG INJ IV ×2 (06:26→17:46)
[2018-01-10] MEDS: LEVOTHYROXINE 75 MCG TAB PO (07:56)
[2018-01-10] MEDS: INSULIN ASPART [NOVOLOG] 3 ML PEN SC ×4 (07:59→21:43)
[2018-01-10] MEDS: LUBIPROSTONE 8 MCG CAPSULE PO ×2 (08:00→21:40)
[2018-01-10] MEDS: BETHANECHOL 25 MG TAB PO ×3 (08:00→21:40)
[2018-01-10] MEDS: ENOXAPARIN 40 MG/0.4 ML SYG SC (08:00)
[2018-01-10] MEDS: FLUCONAZOLE 100 MG TAB PO (08:00)
[2018-01-10] MEDS: FAMOTIDINE 20 MG TAB PO ×2 (08:00→21:40)
[2018-01-10] MEDS: DOXYCYCLINE 100 MG TAB PO ×2 (08:00→21:40)
[2018-01-10] MEDS: COLLAGENASE 5 GM (UD JAR) TOP (08:01)
[2018-01-10] MEDS: NA PHOSPHATE/BIPHOS 133 ML ENEMA PR (18:55)
[2018-01-10] MEDS ORDERED: VITAMIN A & D 5 GM OINT PACKET TOP (20:27)
[2018-01-10] MEDS: INSULIN GLARGINE [LANTus] (100 UNITS/ML) SYG SC (21:44)
[2018-01-11] MEDS: HYDROmorphONE 0.5 MG/0.5 ML SYG IV ×6 (00:05→20:22)
[2018-01-11] MEDS: DIPHENHYDRAMINE 50 MG INJ IV ×2 (01:51→14:00)
[2018-01-11] MEDS: ACCU-CHEK XX (02:00)
[2018-01-11] MEDS: FAMOTIDINE 20 MG TAB PO ×2 (08:07→20:22)
[2018-01-11] MEDS: CIPROFLOXACIN 250 MG TAB NGT ×2 (08:07→18:27)
[2018-01-11] MEDS: DOXYCYCLINE 100 MG TAB PO ×2 (08:07→20:22)
[2018-01-11] MEDS: FLUCONAZOLE 100 MG TAB PO (08:07)
[2018-01-11] MEDS: LUBIPROSTONE 8 MCG CAPSULE PO ×2 (08:07→20:21)
[2018-01-11] MEDS: LEVOTHYROXINE 75 MCG TAB PO (08:07)
[2018-01-11] MEDS: BETHANECHOL 25 MG TAB PO ×3 (08:07→20:21)
[2018-01-11] MEDS: ENOXAPARIN 40 MG/0.4 ML SYG SC (08:15)
[2018-01-11] MEDS: COLLAGENASE 5 GM (UD JAR) TOP (08:15)
[2018-01-11] MEDS: INSULIN ASPART [NOVOLOG] 3 ML PEN SC ×5 (08:15→20:27)
[2018-01-11] MEDS: morphine (ER) 15 MG TAB PO (15:48)
[2018-01-11] MEDS: INSULIN GLARGINE [LANTus] (100 UNITS/ML) SYG SC (20:28)
[2018-01-12] MEDS: HYDROmorphONE 0.5 MG/0.5 ML SYG IV ×6 (00:23→20:39)
[2018-01-12] MEDS: ACCU-CHEK XX (02:00)
[2018-01-12 05:31] LABS: ADD MAN DIFF? NO
[2018-01-12 05:37] LABS: WHITE BLOOD COUNT 5.6 10^3/ul (4.8-10.8)
[2018-01-12 05:37] LABS: BASOPHIL # 0.1 10^3/ul (0.0-0.1); BASOPHILS % 1.1 % (0.0-2.0); EOSINOPHILS # 0.1 10^3/ul (0.0-0.5); HEMATOCRIT 29.4 % (37.0-47.0); HEMOGLOBIN 10.1 g/dl (12.0-16.0); LYMPHOCYTES # 1.2 10^3/ul (0.8-2.9); LYMPHOCYTES % 22.3 % (15.0-51.0); MEAN CORPUSCULAR HEMOGLOBIN 30.7 pg (29.0-33.0); MEAN CORPUSCULAR HGB CONC 34.4 g/dl (32.0-37.0); MEAN CORPUSCULAR VOLUME 89.4 fl (82.0-101.0); MEAN PLATELET VOLUME 8.5 fl (7.4-10.4); MONOCYTE # 0.4 10^3/ul (0.3-0.9); NEUTROPHIL # 3.7 10^3/ul (1.6-7.5); NEUTROPHILS % 66.7 % (39.0-77.0); PLATELET COUNT 227 10^3/UL (140-415); RED BLOOD COUNT 3.29 10^6/ul (4.20-5.40); RED CELL DISTRIBUTION WIDTH 13.6 % (11.5-14.5)
[2018-01-12 06:02] LABS: MAGNESIUM 1.6 mg/dl (1.7-2.5)
[2018-01-12 06:02] LABS: PHOSPHORUS 3.5 mg/dl (2.5-4.9)
[2018-01-12 06:11] LABS: ANION GAP 9 (8-16); BLOOD UREA NITROGEN 22 mg/dl (7-20); CALCIUM 8.9 mg/dl (8.4-10.2); CARBON DIOXIDE 29 mmol/L (21-31); CHLORIDE 106 mmol/L (97-110); CREATININE 0.89 mg/dl (0.44-1.00); GLUCOSE 188 mg/dl (70-220); POTASSIUM 4.2 mmol/L (3.5-5.1); SODIUM 140 mmol/L (135-144)
[2018-01-12] MEDS: CIPROFLOXACIN 250 MG TAB NGT ×2 (07:07→17:36)
[2018-01-12] MEDS: morphine (ER) 15 MG TAB PO (07:47)
[2018-01-12] MEDS: INSULIN ASPART [NOVOLOG] 3 ML PEN SC ×7 (07:55→20:48)
[2018-01-12] MEDS: DIPHENHYDRAMINE 50 MG INJ IV ×2 (08:09→21:58)
[2018-01-12] MEDS: FLUCONAZOLE 100 MG TAB PO (08:17)
[2018-01-12] MEDS: DOXYCYCLINE 100 MG TAB PO ×2 (08:17→20:42)
[2018-01-12] MEDS: LEVOTHYROXINE 75 MCG TAB PO (08:17)
[2018-01-12] MEDS: LUBIPROSTONE 8 MCG CAPSULE PO ×2 (08:17→21:15)
[2018-01-12] MEDS: FAMOTIDINE 20 MG TAB PO ×2 (08:17→20:42)
[2018-01-12] MEDS: ENOXAPARIN 40 MG/0.4 ML SYG SC (08:18)
[2018-01-12] MEDS: COLLAGENASE 5 GM (UD JAR) TOP (08:19)
[2018-01-12] MEDS: BETHANECHOL 25 MG TAB PO ×3 (08:26→20:42)
[2018-01-12] MEDS: MAGNESIUM SULFATE 2 GM/50 ML 50 ML IVPB (11:12)
[2018-01-12] MEDS: INSULIN GLARGINE [LANTus] (100 UNITS/ML) SYG SC (20:47)
[2018-01-13] MEDS: HYDROmorphONE 0.5 MG/0.5 ML SYG IV ×6 (00:34→20:52)
[2018-01-13] MEDS: ACCU-CHEK XX (02:00)
[2018-01-13] MEDS: CIPROFLOXACIN 250 MG TAB NGT (05:44)
[2018-01-13 05:49] LABS: ADD MAN DIFF? NO
[2018-01-13 05:50] LABS: WHITE BLOOD COUNT 6.7 10^3/ul (4.8-10.8)
[2018-01-13 05:50] LABS: BASOPHIL # 0.1 10^3/ul (0.0-0.1); BASOPHILS % 0.9 % (0.0-2.0); EOSINOPHILS # 0.2 10^3/ul (0.0-0.5); EOSINOPHILS % 2.5 % (0.0-7.0); HEMATOCRIT 31.5 % (37.0-47.0); HEMOGLOBIN 10.7 g/dl (12.0-16.0); LYMPHOCYTES # 1.3 10^3/ul (0.8-2.9); LYMPHOCYTES % 18.8 % (15.0-51.0); MEAN CORPUSCULAR HEMOGLOBIN 30.4 pg (29.0-33.0); MEAN CORPUSCULAR VOLUME 89.5 fl (82.0-101.0); MEAN PLATELET VOLUME 8.5 fl (7.4-10.4); MONOCYTE # 0.4 10^3/ul (0.3-0.9); MONOCYTES % 5.5 % (0.0-11.0); NEUTROPHIL # 4.8 10^3/ul (1.6-7.5); NEUTROPHILS % 71.6 % (39.0-77.0); PLATELET COUNT 219 10^3/UL (140-415); RED BLOOD COUNT 3.52 10^6/ul (4.20-5.40); RED CELL DISTRIBUTION WIDTH 13.8 % (11.5-14.5)
[2018-01-13] MEDS: DIPHENHYDRAMINE 50 MG INJ IV ×2 (06:11→18:26)
[2018-01-13 06:21] LABS: ANION GAP 10 (8-16); BLOOD UREA NITROGEN 24 mg/dl (7-20); CALCIUM 9.4 mg/dl (8.4-10.2); CARBON DIOXIDE 28 mmol/L (21-31); CHLORIDE 102 mmol/L (97-110); CREATININE 0.85 mg/dl (0.44-1.00); GLUCOSE 113 mg/dl (70-220); POTASSIUM 4.2 mmol/L (3.5-5.1); SODIUM 136 mmol/L (135-144)
[2018-01-13] MEDS: INSULIN ASPART [NOVOLOG] 3 ML PEN SC ×7 (08:15→20:46)
[2018-01-13] MEDS: BETHANECHOL 25 MG TAB PO ×3 (08:34→20:42)
[2018-01-13] MEDS: DOXYCYCLINE 100 MG TAB PO (08:34)
[2018-01-13] MEDS: FAMOTIDINE 20 MG TAB PO ×2 (08:34→20:41)
[2018-01-13] MEDS: LEVOTHYROXINE 75 MCG TAB PO (08:35)
[2018-01-13] MEDS: LUBIPROSTONE 8 MCG CAPSULE PO ×2 (08:35→20:42)
[2018-01-13] MEDS: FLUCONAZOLE 100 MG TAB PO (08:36)
[2018-01-13] MEDS: ENOXAPARIN 40 MG/0.4 ML SYG SC (08:43)
[2018-01-13] MEDS: morphine (ER) 15 MG TAB PO (10:00)
[2018-01-13] MEDS: COLLAGENASE 5 GM (UD JAR) TOP (18:47)
[2018-01-13] MEDS: INSULIN GLARGINE [LANTus] (100 UNITS/ML) SYG SC (20:48)
[2018-01-14] MEDS: HYDROmorphONE 0.5 MG/0.5 ML SYG IV ×7 (00:34→20:31)
[2018-01-14] MEDS: ACCU-CHEK XX (02:00)
[2018-01-14] MEDS: INSULIN ASPART [NOVOLOG] 3 ML PEN SC ×7 (08:01→20:40)
[2018-01-14] MEDS: DIPHENHYDRAMINE 50 MG INJ IV ×2 (08:14→19:47)
[2018-01-14] MEDS: FAMOTIDINE 20 MG TAB PO ×2 (08:20→20:30)
[2018-01-14] MEDS: LUBIPROSTONE 8 MCG CAPSULE PO ×2 (08:20→20:30)
[2018-01-14] MEDS: LEVOTHYROXINE 75 MCG TAB PO (08:20)
[2018-01-14] MEDS: BETHANECHOL 25 MG TAB PO ×3 (08:20→20:30)
[2018-01-14] MEDS: ENOXAPARIN 40 MG/0.4 ML SYG SC (08:23)
[2018-01-14] MEDS: COLLAGENASE 5 GM (UD JAR) TOP (08:25)
[2018-01-14] MEDS: morphine (ER) 15 MG TAB PO (09:08)
[2018-01-14] MEDS ORDERED: CALCITRIOL 0.25 MCG CAP PO (10:00)
[2018-01-14] MEDS: AMLODIPINE 5 MG TAB PO (10:23)
[2018-01-14] MEDS: ATORVASTATIN 20 MG TAB PO (20:30)
[2018-01-14] MEDS: INSULIN GLARGINE [LANTus] (100 UNITS/ML) SYG SC (20:40)
[2018-01-15] MEDS: HYDROmorphONE 0.5 MG/0.5 ML SYG IV ×4 (00:38→12:12)
[2018-01-15] MEDS: ACCU-CHEK XX (01:29)
[2018-01-15] MEDS: DIPHENHYDRAMINE 50 MG INJ IV ×2 (06:42→18:51)
[2018-01-15] MEDS: INSULIN ASPART [NOVOLOG] 3 ML PEN SC ×7 (08:38→20:52)
[2018-01-15] MEDS: LEVOTHYROXINE 75 MCG TAB PO (08:51)
[2018-01-15] MEDS: LUBIPROSTONE 8 MCG CAPSULE PO ×2 (08:51→20:52)
[2018-01-15] MEDS: FAMOTIDINE 20 MG TAB PO ×2 (08:52→20:46)
[2018-01-15] MEDS: AMLODIPINE 5 MG TAB PO (08:52)
[2018-01-15] MEDS: BETHANECHOL 25 MG TAB PO ×3 (08:52→20:46)
[2018-01-15] MEDS: COLLAGENASE 5 GM (UD JAR) TOP (08:52)
[2018-01-15] MEDS: morphine (ER) 15 MG TAB PO ×2 (10:35→20:44)
[2018-01-15] MEDS: ENOXAPARIN 40 MG/0.4 ML SYG SC (10:37)
[2018-01-15] MEDS: HYDROmorphONE 2 MG TAB PO ×3 (15:05→23:13)
[2018-01-15] MEDS: ATORVASTATIN 20 MG TAB PO (20:46)
[2018-01-15] MEDS: INSULIN GLARGINE [LANTus] (100 UNITS/ML) SYG SC (20:50)
[2018-01-16] MEDS: DIPHENHYDRAMINE 50 MG INJ IV ×3 (00:31→20:54)
[2018-01-16] MEDS: ACCU-CHEK XX (02:00)
[2018-01-16] MEDS: HYDROmorphONE 2 MG TAB PO ×3 (05:41→19:20)
[2018-01-16 06:29] LABS: ANION GAP 11 (8-16); BLOOD UREA NITROGEN 18 mg/dl (7-20); CALCIUM 9.2 mg/dl (8.4-10.2); CARBON DIOXIDE 29 mmol/L (21-31); CHLORIDE 101 mmol/L (97-110); CREATININE 0.85 mg/dl (0.44-1.00); GLUCOSE 254 mg/dl (70-220); POTASSIUM 4.3 mmol/L (3.5-5.1); SODIUM 137 mmol/L (135-144)
[2018-01-16] MEDS: FAMOTIDINE 20 MG TAB PO ×2 (08:07→20:55)
[2018-01-16] MEDS: LUBIPROSTONE 8 MCG CAPSULE PO ×2 (08:07→20:55)
[2018-01-16] MEDS: AMLODIPINE 5 MG TAB PO (08:08)
[2018-01-16] MEDS: BETHANECHOL 25 MG TAB PO ×4 (08:08→20:55)
[2018-01-16] MEDS: LEVOTHYROXINE 75 MCG TAB PO (08:08)
[2018-01-16] MEDS: morphine (ER) 15 MG TAB PO ×2 (08:08→20:56)
[2018-01-16] MEDS: INSULIN ASPART [NOVOLOG] 3 ML PEN SC ×7 (08:09→21:00)
[2018-01-16] MEDS: ENOXAPARIN 40 MG/0.4 ML SYG SC (08:10)
[2018-01-16] MEDS: COLLAGENASE 5 GM (UD JAR) TOP (08:11)
[2018-01-16] MEDS: HYDROmorphONE 0.5 MG/0.5 ML SYG IV (14:41)
[2018-01-16] MEDS: ATORVASTATIN 20 MG TAB PO (20:55)
[2018-01-16] MEDS: INSULIN GLARGINE [LANTus] (100 UNITS/ML) SYG SC (21:48)
[2018-01-17] MEDS: ACCU-CHEK XX (02:00)
[2018-01-17] MEDS: HYDROmorphONE 2 MG TAB PO ×4 (02:14→17:53)
[2018-01-17] MEDS: LEVOTHYROXINE 75 MCG TAB PO (07:52)
[2018-01-17] MEDS: DIPHENHYDRAMINE 50 MG INJ IV ×2 (07:52→19:59)
[2018-01-17] MEDS: INSULIN ASPART [NOVOLOG] 3 ML PEN SC ×6 (07:58→17:55)
[2018-01-17] MEDS: ENOXAPARIN 40 MG/0.4 ML SYG SC (08:01)
[2018-01-17] MEDS: AMLODIPINE 5 MG TAB PO (09:04)
[2018-01-17] MEDS: morphine (ER) 15 MG TAB PO (09:04)
[2018-01-17] MEDS: BETHANECHOL 25 MG TAB PO ×2 (09:04→12:05)
[2018-01-17] MEDS: FAMOTIDINE 20 MG TAB PO (09:04)
[2018-01-17] MEDS: LUBIPROSTONE 8 MCG CAPSULE PO (09:04)
[2018-01-17] MEDS: COLLAGENASE 5 GM (UD JAR) TOP (09:05)
== END 2018-01-17 22:25 | disposition home or self-care (01) | DRG 603 ==
LOC: MS2 01-16 15:40 → 5EC 01-17 14:23 → MS2 12-28 15:07 → MS4 01-17 15:22 → E/R 12:50 → 5EC 01-17 15:22 → MS2 13:19
PROVIDERS: Internal Medicine
PROC: 0Y900ZZ Drainage of Right Buttock, Open Approach (ICD-10-PCS; principal; 2017-12-29)
DX: L02.31 Cutaneous abscess of buttock (principal); G61.0 Guillain-Barre syndrome; E87.1 Hypo-osmolality and hyponatremia; B37.49 Other urogenital candidiasis; E11.9 Type 2 diabetes mellitus without complications; D64.9 Anemia, unspecified; I10 Essential (primary) hypertension; K59.00 Constipation, unspecified; E03.9 Hypothyroidism, unspecified; R33.9 Retention of urine, unspecified; A49.02 Methicillin resistant Staphylococcus aureus infection, unspecified site; A49.8 Other bacterial infections of unspecified site; N31.9 Neuromuscular dysfunction of bladder, unspecified
CPT/HCPCS: 72156; 80048; 80053; 80202; 81001; 82565; 82962; 83036; 83735; 84100; 84520; 85025; 86703; 87070; 87075; 87081; 87086; 97110; 97162; 97530; 99285-25

== ENCOUNTER 2018-01-22 21:30 | Inpatient (IN) | payer BC ==
[2018-01-22] MEDS ORDERED: GLUCAGON 1 MG INJ IM (23:00)
[2018-01-22] MEDS ORDERED: GLUCOSE GEL 15 GRAM TUBE PO ×2 (23:00)
[2018-01-22] MEDS ORDERED: GLUCOSE GEL 15 GRAM TUBE BUCCAL (23:00)
[2018-01-22] MEDS ORDERED: POLYETHYLENE GLYCOL 17 GM PACKET PO (23:00)
[2018-01-22] MEDS ORDERED: DEXTROSE 50% 50 ML SYRINGE IV ×2 (23:00)
[2018-01-22] MEDS: HYDROmorphONE 0.5 MG/0.5 ML SYG IV (23:07)
[2018-01-22] MEDS: SOD CHLORIDE 0.9% 1,000 ML IV (23:10)
[2018-01-23] MEDS: INSULIN ASPART [NOVOLOG] 3 ML PEN SC ×9 (00:55→20:46)
[2018-01-23] MEDS ORDERED: PENDING SANTYL ORDER FOR WOUND CARE XX (01:30)
[2018-01-23] MEDS: ACCU-CHEK XX (02:00)
[2018-01-23] MEDS: HYDROmorphONE 0.5 MG/0.5 ML SYG IV ×6 (03:02→23:57)
[2018-01-23] MEDS ORDERED: COLLAGENASE 5 GM (UD JAR) TOP (03:30)
[2018-01-23] MEDS: HYDROmorphONE 2 MG TAB PO ×3 (04:08→22:41)
[2018-01-23 07:47] LABS: ADD MAN DIFF? NO
[2018-01-23 07:50] LABS: BASOPHIL # 0.1 10^3/ul (0.0-0.1); BASOPHILS % 0.8 % (0.0-2.0); EOSINOPHILS # 0.2 10^3/ul (0.0-0.5); EOSINOPHILS % 3.5 % (0.0-7.0); HEMATOCRIT 26.1 % (37.0-47.0); HEMOGLOBIN 9.4 g/dl (12.0-16.0); LYMPHOCYTES # 0.8 10^3/ul (0.8-2.9); LYMPHOCYTES % 13.8 % (15.0-51.0); MEAN CORPUSCULAR HEMOGLOBIN 32.2 pg (29.0-33.0); MEAN CORPUSCULAR VOLUME 89.4 fl (82.0-101.0); MEAN PLATELET VOLUME 8.8 fl (7.4-10.4); MONOCYTE # 0.5 10^3/ul (0.3-0.9); MONOCYTES % 8.6 % (0.0-11.0); NEUTROPHIL # 4.4 10^3/ul (1.6-7.5); NEUTROPHILS % 72.6 % (39.0-77.0); PLATELET COUNT 366 10^3/UL (140-415); RED BLOOD COUNT 2.92 10^6/ul (4.20-5.40); RED CELL DISTRIBUTION WIDTH 13.3 % (11.5-14.5)
[2018-01-23] MEDS ORDERED: INSULIN ASPART [NOVOLOG] 3 ML PEN SC (08:00)
[2018-01-23] MEDS: HEPARIN 5,000 UNIT/0.5 ML VIAL SC ×2 (08:42→20:47)
[2018-01-23] MEDS: COLLAGENASE 5 GM (UD JAR) TOP (08:43)
[2018-01-23] MEDS: BISACODYL (EC) 5 MG TAB PO ×2 (08:43→20:48)
[2018-01-23] MEDS: NA PHOSPHATE/BIPHOS 133 ML ENEMA PR (08:55)
[2018-01-23 09:30] LABS: ANION GAP 13 (8-16); BLOOD UREA NITROGEN 10 mg/dl (7-20); CALCIUM 8.5 mg/dl (8.4-10.2); CARBON DIOXIDE 27 mmol/L (21-31); CHLORIDE 100 mmol/L (97-110); CREATININE 0.71 mg/dl (0.44-1.00); GLUCOSE 359 mg/dl (70-220); POTASSIUM 3.9 mmol/L (3.5-5.1); SODIUM 136 mmol/L (135-144)
[2018-01-23 10:45] LABS: GLUCOSE 382 mg/dl (70-220)
[2018-01-23] MEDS: DIPHENHYDRAMINE 50 MG INJ IV (14:58)
[2018-01-23] MEDS: DIPHENHYDRAMINE 25 MG CAP PO (14:58)
[2018-01-23] MEDS: SOD CHLORIDE 0.9% 1,000 ML IV (16:03)
[2018-01-23] MEDS ORDERED: INSULIN GLARGINE [LANTus] (100 UNITS/ML) SYG SC ×2 (20:00→21:00)
[2018-01-23] MEDS: INSULIN GLARGINE [LANTus] (100 UNITS/ML) SYG SC (20:48)
[2018-01-23] MEDS: BETHANECHOL 25 MG TAB PO (20:48)
[2018-01-24] MEDS: ACCU-CHEK XX (02:00)
[2018-01-24] MEDS: HYDROmorphONE 0.5 MG/0.5 ML SYG IV ×6 (03:56→23:53)
[2018-01-24] MEDS: DIPHENHYDRAMINE 25 MG CAP PO (06:10)
[2018-01-24] MEDS: LEVOTHYROXINE 75 MCG TAB PO (06:10)
[2018-01-24] MEDS: INSULIN ASPART [NOVOLOG] 3 ML PEN SC ×7 (08:00→21:00)
[2018-01-24] MEDS: BETHANECHOL 25 MG TAB PO ×3 (08:02→21:00)
[2018-01-24] MEDS: HEPARIN 5,000 UNIT/0.5 ML VIAL SC ×2 (08:02→21:00)
[2018-01-24] MEDS: BISACODYL (EC) 5 MG TAB PO ×2 (08:02→21:00)
[2018-01-24] MEDS: COLLAGENASE 5 GM (UD JAR) TOP (08:06)
[2018-01-24] MEDS: SOD CHLORIDE 0.9% 1,000 ML IV (12:29)
[2018-01-24] MEDS: INSULIN GLARGINE [LANTus] (100 UNITS/ML) SYG SC (21:00)
[2018-01-25] MEDS: ACCU-CHEK XX (02:00)
[2018-01-25] MEDS: HYDROmorphONE 0.5 MG/0.5 ML SYG IV ×5 (03:55→20:04)
[2018-01-25] MEDS: LEVOTHYROXINE 75 MCG TAB PO (05:56)
[2018-01-25] MEDS: SOD CHLORIDE 0.9% 1,000 ML IV (08:04)
[2018-01-25] MEDS: INSULIN ASPART [NOVOLOG] 3 ML PEN SC ×7 (08:46→20:10)
[2018-01-25] MEDS: HEPARIN 5,000 UNIT/0.5 ML VIAL SC ×2 (08:49→20:09)
[2018-01-25] MEDS: morphine (ER) 15 MG TAB PO (08:50)
[2018-01-25] MEDS: BETHANECHOL 25 MG TAB PO ×3 (08:50→20:08)
[2018-01-25] MEDS: BISACODYL (EC) 5 MG TAB PO ×2 (08:50→20:08)
[2018-01-25] MEDS: COLLAGENASE 5 GM (UD JAR) TOP (11:58)
[2018-01-25] MEDS: INSULIN GLARGINE [LANTus] (100 UNITS/ML) SYG SC (20:10)
[2018-01-26] MEDS: HYDROmorphONE 0.5 MG/0.5 ML SYG IV ×6 (00:04→20:08)
[2018-01-26] MEDS: ACCU-CHEK XX (02:00)
[2018-01-26] MEDS: SOD CHLORIDE 0.9% 1,000 ML IV (04:11)
[2018-01-26] MEDS: INSULIN ASPART [NOVOLOG] 3 ML PEN SC ×7 (08:00→20:06)
[2018-01-26] MEDS: BETHANECHOL 25 MG TAB PO ×3 (08:11→20:08)
[2018-01-26] MEDS: LEVOTHYROXINE 75 MCG TAB PO (08:12)
[2018-01-26] MEDS: morphine (ER) 15 MG TAB PO (08:13)
[2018-01-26] MEDS: BISACODYL (EC) 5 MG TAB PO ×2 (08:13→20:08)
[2018-01-26] MEDS: HEPARIN 5,000 UNIT/0.5 ML VIAL SC ×2 (08:14→20:09)
[2018-01-26] MEDS: COLLAGENASE 5 GM (UD JAR) TOP (12:35)
[2018-01-26] MEDS: CHOLECALCIFEROL 2,000 UNIT CAP PO (16:01)
[2018-01-26] MEDS: AMLODIPINE 5 MG TAB PO (16:01)
[2018-01-26] MEDS: INSULIN GLARGINE [LANTus] (100 UNITS/ML) SYG SC (20:10)
[2018-01-26] MEDS ORDERED: ATORVASTATIN 10 MG TAB PO (21:00)
[2018-01-27] MEDS: HYDROmorphONE 0.5 MG/0.5 ML SYG IV ×6 (00:02→20:02)
[2018-01-27] MEDS: ACCU-CHEK XX (02:00)
[2018-01-27] MEDS: SOD CHLORIDE 0.9% 1,000 ML IV ×2 (03:00→03:40)
[2018-01-27] MEDS: INSULIN ASPART [NOVOLOG] 3 ML PEN SC ×7 (07:40→21:00)
[2018-01-27 08:12] LABS: ADD MAN DIFF? NO
[2018-01-27 08:21] LABS: WHITE BLOOD COUNT 4.9 10^3/ul (4.8-10.8)
[2018-01-27 08:21] LABS: BASOPHIL # 0.1 10^3/ul (0.0-0.1); EOSINOPHILS # 0.1 10^3/ul (0.0-0.5); EOSINOPHILS % 2.4 % (0.0-7.0); HEMATOCRIT 28.2 % (37.0-47.0); HEMOGLOBIN 9.7 g/dl (12.0-16.0); IMMATURE GRANS #M 0.03 10^3/ul; IMMATURE GRANS % (M) 0.6 %; LYMPHOCYTES % 21.1 % (15.0-51.0); MEAN CORPUSCULAR HGB CONC 34.4 g/dl (32.0-37.0); MEAN CORPUSCULAR VOLUME 87.3 fl (82.0-101.0); MEAN PLATELET VOLUME 8.7 fl (7.4-10.4); MONOCYTE # 0.4 10^3/ul (0.3-0.9); MONOCYTES % 7.5 % (0.0-11.0); NEUTROPHIL # 3.3 10^3/ul (1.6-7.5); NEUTROPHILS % 67.4 % (39.0-77.0); PLATELET COUNT 385 10^3/UL (140-415); RED BLOOD COUNT 3.23 10^6/ul (4.20-5.40); RED CELL DISTRIBUTION WIDTH 13.3 % (11.5-14.5)
[2018-01-27] MEDS: CHOLECALCIFEROL 2,000 UNIT CAP PO (08:25)
[2018-01-27] MEDS: morphine (ER) 15 MG TAB PO (08:25)
[2018-01-27] MEDS: LEVOTHYROXINE 75 MCG TAB PO (08:25)
[2018-01-27] MEDS: COLLAGENASE 5 GM (UD JAR) TOP (08:25)
[2018-01-27] MEDS: AMLODIPINE 5 MG TAB PO (08:25)
[2018-01-27] MEDS: BETHANECHOL 25 MG TAB PO ×3 (08:25→21:08)
[2018-01-27] MEDS: HEPARIN 5,000 UNIT/0.5 ML VIAL SC ×2 (08:28→21:22)
[2018-01-27] MEDS: BISACODYL (EC) 5 MG TAB PO ×2 (08:30→21:08)
[2018-01-27 08:45] LABS: HEMOGLOBIN A1C 9.1 % (0-5.9)
[2018-01-27 08:45] LABS: ANION GAP 12 (8-16); BLOOD UREA NITROGEN 7 mg/dl (7-20); CALCIUM 9.4 mg/dl (8.4-10.2); CARBON DIOXIDE 29 mmol/L (21-31); CHLORIDE 99 mmol/L (97-110); CREATININE 0.46 mg/dl (0.44-1.00); GLUCOSE 78 mg/dl (70-220); POTASSIUM 3.9 mmol/L (3.5-5.1); SODIUM 136 mmol/L (135-144)
[2018-01-27] MEDS: POLYSACCHARIDE IRON COMPLEX CAP PO ×2 (14:15→21:08)
[2018-01-27] MEDS: INSULIN GLARGINE [LANTus] (100 UNITS/ML) SYG SC (21:59)
[2018-01-28] MEDS: HYDROmorphONE 0.5 MG/0.5 ML SYG IV ×6 (00:09→20:12)
[2018-01-28] MEDS: ACCU-CHEK XX (02:00)
[2018-01-28] MEDS ORDERED: LEVOTHYROXINE 50 MCG TAB PO (06:00)
[2018-01-28] MEDS: LEVOTHYROXINE 150 MCG TAB PO (06:20)
[2018-01-28] MEDS: INSULIN ASPART [NOVOLOG] 3 ML PEN SC ×7 (08:00→21:30)
[2018-01-28] MEDS: BISACODYL (EC) 5 MG TAB PO ×2 (09:54→20:12)
[2018-01-28] MEDS: BETHANECHOL 25 MG TAB PO ×3 (09:54→20:12)
[2018-01-28] MEDS: CHOLECALCIFEROL 2,000 UNIT CAP PO (09:55)
[2018-01-28] MEDS: AMLODIPINE 10 MG TAB PO (09:55)
[2018-01-28] MEDS: HEPARIN 5,000 UNIT/0.5 ML VIAL SC ×2 (09:57→20:13)
[2018-01-28] MEDS: POLYSACCHARIDE IRON COMPLEX CAP PO ×2 (10:06→21:27)
[2018-01-28] MEDS: morphine (ER) 15 MG TAB PO (10:07)
[2018-01-28] MEDS: COLLAGENASE 5 GM (UD JAR) TOP (15:41)
[2018-01-28] MEDS: SOD CHLORIDE 0.9% 1,000 ML IV (16:16)
[2018-01-28] MEDS: INSULIN GLARGINE [LANTus] (100 UNITS/ML) SYG SC (21:31)
[2018-01-29] MEDS: HYDROmorphONE 0.5 MG/0.5 ML SYG IV ×7 (00:08→23:00)
[2018-01-29] MEDS: ACCU-CHEK XX (02:00)
[2018-01-29] MEDS: LEVOTHYROXINE 150 MCG TAB PO (06:50)
[2018-01-29] MEDS: INSULIN ASPART [NOVOLOG] 3 ML PEN SC ×7 (08:00→21:00)
[2018-01-29] MEDS: HEPARIN 5,000 UNIT/0.5 ML VIAL SC ×2 (08:17→20:56)
[2018-01-29] MEDS: POLYSACCHARIDE IRON COMPLEX CAP PO ×2 (08:18→20:55)
[2018-01-29] MEDS: AMLODIPINE 10 MG TAB PO (08:18)
[2018-01-29] MEDS: BISACODYL (EC) 5 MG TAB PO ×2 (08:18→20:55)
[2018-01-29] MEDS: BETHANECHOL 25 MG TAB PO ×3 (08:18→20:55)
[2018-01-29] MEDS: morphine (ER) 15 MG TAB PO (08:19)
[2018-01-29] MEDS: COLLAGENASE 5 GM (UD JAR) TOP (08:19)
[2018-01-29] MEDS: CHOLECALCIFEROL 2,000 UNIT CAP PO (09:00)
[2018-01-29] MEDS: SOD CHLORIDE 0.9% 1,000 ML IV ×2 (10:56→14:50)
[2018-01-29] MEDS: DIPHENHYDRAMINE 50 MG INJ IV (18:42)
[2018-01-29] MEDS: INSULIN GLARGINE [LANTus] (100 UNITS/ML) SYG SC (20:56)
[2018-01-30] MEDS: ACCU-CHEK XX (01:59)
[2018-01-30] MEDS: HYDROmorphONE 0.5 MG/0.5 ML SYG IV ×6 (02:56→23:06)
[2018-01-30] MEDS: DIPHENHYDRAMINE 25 MG CAP PO ×2 (05:58→20:55)
[2018-01-30] MEDS: LEVOTHYROXINE 150 MCG TAB PO (05:58)
[2018-01-30] MEDS: morphine (ER) 15 MG TAB PO (05:58)
[2018-01-30] MEDS: SOD CHLORIDE 0.9% 1,000 ML IV (07:00)
[2018-01-30] MEDS: INSULIN ASPART [NOVOLOG] 3 ML PEN SC ×7 (08:00→20:47)
[2018-01-30] MEDS: POLYSACCHARIDE IRON COMPLEX CAP PO ×2 (09:02→20:45)
[2018-01-30] MEDS: BETHANECHOL 25 MG TAB PO ×3 (09:02→20:45)
[2018-01-30] MEDS: BISACODYL (EC) 5 MG TAB PO ×2 (09:02→20:45)
[2018-01-30] MEDS: AMLODIPINE 10 MG TAB PO (09:03)
[2018-01-30] MEDS: COLLAGENASE 5 GM (UD JAR) TOP (09:03)
[2018-01-30] MEDS: HEPARIN 5,000 UNIT/0.5 ML VIAL SC ×2 (09:04→20:49)
[2018-01-30] MEDS: CHOLECALCIFEROL 2,000 UNIT CAP PO (13:11)
[2018-01-30] MEDS: INSULIN GLARGINE [LANTus] (100 UNITS/ML) SYG SC (20:47)
[2018-01-31] MEDS: ACCU-CHEK XX (02:00)
[2018-01-31] MEDS: HYDROmorphONE 0.5 MG/0.5 ML SYG IV ×6 (03:06→23:00)
[2018-01-31] MEDS: LEVOTHYROXINE 150 MCG TAB PO (05:11)
[2018-01-31] MEDS: INSULIN ASPART [NOVOLOG] 3 ML PEN SC ×4 (08:00→20:40)
[2018-01-31] MEDS: morphine (ER) 15 MG TAB PO (08:19)
[2018-01-31] MEDS: BETHANECHOL 25 MG TAB PO ×4 (08:19→20:38)
[2018-01-31] MEDS: BISACODYL (EC) 5 MG TAB PO ×2 (08:19→20:38)
[2018-01-31] MEDS: METOPROLOL 25 MG TAB PO (08:20)
[2018-01-31] MEDS: COLLAGENASE 5 GM (UD JAR) TOP (08:20)
[2018-01-31] MEDS: POLYSACCHARIDE IRON COMPLEX CAP PO ×2 (08:20→20:38)
[2018-01-31] MEDS: AMLODIPINE 10 MG TAB PO (08:20)
[2018-01-31] MEDS: CHOLECALCIFEROL 2,000 UNIT CAP PO (08:20)
[2018-01-31] MEDS: HEPARIN 5,000 UNIT/0.5 ML VIAL SC ×2 (08:21→20:39)
[2018-01-31] MEDS: INSULIN GLARGINE [LANTus] (100 UNITS/ML) SYG SC (20:40)
[2018-02-01] MEDS: ACCU-CHEK XX (01:57)
[2018-02-01] MEDS: HYDROmorphONE 0.5 MG/0.5 ML SYG IV ×6 (03:00→23:09)
[2018-02-01] MEDS: LEVOTHYROXINE 150 MCG TAB PO (06:23)
[2018-02-01] MEDS: INSULIN ASPART [NOVOLOG] 3 ML PEN SC ×4 (08:00→21:00)
[2018-02-01] MEDS: COLLAGENASE 5 GM (UD JAR) TOP (09:24)
[2018-02-01] MEDS: AMLODIPINE 10 MG TAB PO (09:25)
[2018-02-01] MEDS: POLYSACCHARIDE IRON COMPLEX CAP PO ×2 (09:25→21:00)
[2018-02-01] MEDS: CHOLECALCIFEROL 2,000 UNIT CAP PO (09:25)
[2018-02-01] MEDS: DULOXETINE 30 MG CAP DR PO (09:25)
[2018-02-01] MEDS: morphine (ER) 15 MG TAB PO (09:25)
[2018-02-01] MEDS: BISACODYL (EC) 5 MG TAB PO ×2 (09:25→21:00)
[2018-02-01] MEDS: METOPROLOL 25 MG TAB PO (09:26)
[2018-02-01] MEDS: BETHANECHOL 25 MG TAB PO ×3 (09:26→21:00)
[2018-02-01] MEDS: HEPARIN 5,000 UNIT/0.5 ML VIAL SC ×2 (09:27→22:04)
[2018-02-01] MEDS: ONDANSETRON 4 MG TAB PO (19:06)
[2018-02-01] MEDS: INSULIN GLARGINE [LANTus] (100 UNITS/ML) SYG SC (22:03)
[2018-02-02] MEDS: ACCU-CHEK XX (02:00)
[2018-02-02] MEDS: HYDROmorphONE 0.5 MG/0.5 ML SYG IV ×4 (03:11→15:27)
[2018-02-02] MEDS: LEVOTHYROXINE 150 MCG TAB PO (05:33)
[2018-02-02 06:11] LABS: ADD MAN DIFF? NO
[2018-02-02 06:45] LABS: BASOPHIL # 0.1 10^3/ul (0.0-0.1); BASOPHILS % 1.4 % (0.0-2.0); EOSINOPHILS # 0.1 10^3/ul (0.0-0.5); EOSINOPHILS % 2.5 % (0.0-7.0); HEMATOCRIT 29.8 % (37.0-47.0); HEMOGLOBIN 10.4 g/dl (12.0-16.0); LYMPHOCYTES # 1.2 10^3/ul (0.8-2.9); LYMPHOCYTES % 24.1 % (15.0-51.0); MEAN CORPUSCULAR HEMOGLOBIN 30.8 pg (29.0-33.0); MEAN CORPUSCULAR HGB CONC 34.9 g/dl (32.0-37.0); MEAN CORPUSCULAR VOLUME 88.2 fl (82.0-101.0); MEAN PLATELET VOLUME 8.4 fl (7.4-10.4); MONOCYTE # 0.4 10^3/ul (0.3-0.9); MONOCYTES % 8.4 % (0.0-11.0); NEUTROPHIL # 3.1 10^3/ul (1.6-7.5); PLATELET COUNT 325 10^3/UL (140-415); RED BLOOD COUNT 3.38 10^6/ul (4.20-5.40); RED CELL DISTRIBUTION WIDTH 13.2 % (11.5-14.5)
[2018-02-02 06:45] LABS: WHITE BLOOD COUNT 4.9 10^3/ul (4.8-10.8)
[2018-02-02 07:05] LABS: ANION GAP 10 (8-16); BLOOD UREA NITROGEN 10 mg/dl (7-20); CALCIUM 9.8 mg/dl (8.4-10.2); CARBON DIOXIDE 32 mmol/L (21-31); CHLORIDE 97 mmol/L (97-110); CREATININE 0.48 mg/dl (0.44-1.00); GLUCOSE 94 mg/dl (70-220); SODIUM 135 mmol/L (135-144)
[2018-02-02 07:10] LABS: MAGNESIUM 1.7 mg/dl (1.7-2.5)
[2018-02-02 07:10] LABS: PHOSPHORUS 5.4 mg/dl (2.5-4.9)
[2018-02-02] MEDS: INSULIN ASPART [NOVOLOG] 3 ML PEN SC ×4 (08:00→20:59)
[2018-02-02] MEDS: morphine (ER) 15 MG TAB PO (09:00)
[2018-02-02] MEDS: BISACODYL (EC) 5 MG TAB PO ×2 (09:12→20:58)
[2018-02-02] MEDS: CHOLECALCIFEROL 2,000 UNIT CAP PO (09:12)
[2018-02-02] MEDS: BETHANECHOL 25 MG TAB PO ×3 (09:12→20:58)
[2018-02-02] MEDS: DULOXETINE 30 MG CAP DR PO (09:12)
[2018-02-02] MEDS: POLYSACCHARIDE IRON COMPLEX CAP PO ×2 (09:12→20:58)
[2018-02-02] MEDS: METOPROLOL 25 MG TAB PO (09:13)
[2018-02-02] MEDS: AMLODIPINE 10 MG TAB PO (09:13)
[2018-02-02] MEDS: HEPARIN 5,000 UNIT/0.5 ML VIAL SC ×2 (09:18→21:01)
[2018-02-02] MEDS ORDERED: ZOLPIDEM 5 MG TAB PO (14:00)
[2018-02-02] MEDS ORDERED: HYDROmorphONE 2 MG TAB PO (14:00)
[2018-02-02] MEDS: COLLAGENASE 5 GM (UD JAR) TOP (18:00)
[2018-02-02] MEDS: INSULIN GLARGINE [LANTus] (100 UNITS/ML) SYG SC (21:00)
[2018-02-03] MEDS: ACCU-CHEK XX (02:00)
[2018-02-03] MEDS: LEVOTHYROXINE 150 MCG TAB PO (04:47)
[2018-02-03] MEDS: INSULIN ASPART [NOVOLOG] 3 ML PEN SC (08:00)
[2018-02-03] MEDS: CHOLECALCIFEROL 2,000 UNIT CAP PO (08:37)
[2018-02-03] MEDS: HEPARIN 5,000 UNIT/0.5 ML VIAL SC (08:37)
[2018-02-03] MEDS: POLYSACCHARIDE IRON COMPLEX CAP PO (08:38)
[2018-02-03] MEDS: BISACODYL (EC) 5 MG TAB PO (08:38)
[2018-02-03] MEDS: BETHANECHOL 25 MG TAB PO (08:38)
[2018-02-03] MEDS: AMLODIPINE 10 MG TAB PO (08:38)
[2018-02-03] MEDS: METOPROLOL 25 MG TAB PO (08:38)
[2018-02-03] MEDS: COLLAGENASE 5 GM (UD JAR) TOP (08:39)
[2018-02-03] MEDS: morphine (ER) 15 MG TAB PO (08:39)
[2018-02-03] MEDS: DULOXETINE 30 MG CAP DR PO (08:58)
== END 2018-02-03 10:30 | disposition home or self-care (01) | DRG 592 ==
LOC: 2NE 21:30 → 5EC 01-23 12:02
PROVIDERS: Internal Medicine Nephrology
DX: L89.313 Pressure ulcer of right buttock, stage 3 (principal); E87.1 Hypo-osmolality and hyponatremia; G61.0 Guillain-Barre syndrome; G82.20 Paraplegia, unspecified; E11.65 Type 2 diabetes mellitus with hyperglycemia; Z74.01 Bed confinement status; D64.9 Anemia, unspecified; K59.00 Constipation, unspecified; E03.9 Hypothyroidism, unspecified; E55.9 Vitamin D deficiency, unspecified
CPT/HCPCS: 80048; 82947; 82962; 83036; 83735; 84100; 84443; 85025; 87070; 87081

== ENCOUNTER 2018-02-19 05:24 | Inpatient (IN) | payer BC ==
[2018-02-19] MEDS ORDERED: GLUCOSE GEL 15 GRAM TUBE BUCCAL (08:00)
[2018-02-19] MEDS ORDERED: GLUCAGON 1 MG INJ IM (08:00)
[2018-02-19] MEDS ORDERED: GLUCOSE GEL 15 GRAM TUBE PO ×2 (08:00)
[2018-02-19] MEDS ORDERED: DEXTROSE 50% 50 ML SYRINGE IV ×2 (08:00)
[2018-02-19] MEDS ORDERED: HYDROmorphONE 2 MG TAB PO (08:30)
[2018-02-19] MEDS ORDERED: morphine (ER) 15 MG TAB PO ×2 (09:00)
[2018-02-19] MEDS ORDERED: POLYETHYLENE GLYCOL 17 GM PACKET PO (09:00)
[2018-02-19] MEDS: BISACODYL (EC) 5 MG TAB PO (09:01)
[2018-02-19] MEDS: CHOLECALCIFEROL 2,000 UNIT CAP PO (09:01)
[2018-02-19] MEDS: AMLODIPINE 10 MG TAB PO (09:01)
[2018-02-19] MEDS: DULOXETINE 30 MG CAP DR PO (09:01)
[2018-02-19] MEDS: METOPROLOL 25 MG TAB PO (09:02)
[2018-02-19] MEDS: HYDROmorphONE 1 MG/ML SYG IV (09:38)
[2018-02-19] MEDS: SOD CHLORIDE 0.9% 1,000 ML IV (09:38)
[2018-02-19 10:13] LABS: LACTIC ACID 3.8 mmol/L (0.5-2.0)
[2018-02-19] MEDS: BETHANECHOL 25 MG TAB PO ×2 (10:17→12:06)
[2018-02-19] MEDS: POLYSACCHARIDE IRON COMPLEX CAP PO (10:17)
[2018-02-19] MEDS: INSULIN ASPART [NOVOLOG] 3 ML PEN SC ×4 (10:19→17:18)
[2018-02-19] MEDS: MAGNESIUM CITRATE 300 ML BTL PO (12:00)
[2018-02-19] MEDS: NA PHOSPHATE/BIPHOS 133 ML ENEMA PR (12:00)
[2018-02-19 13:33] LABS: ADD MAN DIFF? NO
[2018-02-19 13:34] LABS: BASOPHILS % 0.6 % (0.0-2.0); EOSINOPHILS % 0.6 % (0.0-7.0); HEMATOCRIT 27.9 % (37.0-47.0); LYMPHOCYTES # 1.1 10^3/ul (0.8-2.9); LYMPHOCYTES % 15.7 % (15.0-51.0); MEAN CORPUSCULAR HEMOGLOBIN 30.5 pg (29.0-33.0); MEAN CORPUSCULAR HGB CONC 35.8 g/dl (32.0-37.0); MEAN CORPUSCULAR VOLUME 85.1 fl (82.0-101.0); MEAN PLATELET VOLUME 7.9 fl (7.4-10.4); MONOCYTE # 0.3 10^3/ul (0.3-0.9); MONOCYTES % 4.7 % (0.0-11.0); NEUTROPHIL # 5.6 10^3/ul (1.6-7.5); PLATELET COUNT 291 10^3/UL (140-415); RED BLOOD COUNT 3.28 10^6/ul (4.20-5.40); RED CELL DISTRIBUTION WIDTH 12.6 % (11.5-14.5)
[2018-02-19 13:34] LABS: WHITE BLOOD COUNT 7.2 10^3/ul (4.8-10.8)
[2018-02-19 13:53] LABS: ALANINE AMINOTRANSFERASE 8 IU/L (13-69); ALBUMIN 3.5 g/dl (3.3-4.9); ALBUMIN/GLOBULIN RATIO 1.02; ALKALINE PHOSPHATASE 54 IU/L (42-121); ANION GAP 15 (8-16); ASPARTATE AMINO TRANSFERASE 23 IU/L (15-46); BILIRUBIN,INDIRECT 0.2 mg/dl (0-1.1); BILIRUBIN,TOTAL 0.2 mg/dl (0.2-1.3); BLOOD UREA NITROGEN 13 mg/dl (7-20); CALCIUM 9.2 mg/dl (8.4-10.2); CARBON DIOXIDE 28 mmol/L (21-31); CHLORIDE 100 mmol/L (97-110); CREATININE 0.42 mg/dl (0.44-1.00); GLUCOSE 273 mg/dl (70-220); POTASSIUM 3.9 mmol/L (3.5-5.1); SODIUM 139 mmol/L (135-144); TOTAL PROTEIN 6.9 g/dl (6.1-8.1)
[2018-02-19] MEDS: CEFTRIAXONE 1 GM/50 ML (PMX) 50 ML IVPB (15:28)
[2018-02-19] MEDS: morphine (ER) 15 MG TAB PO ×2 (15:30→15:32)
[2018-02-19] MEDS ORDERED: INSULIN GLARGINE [LANTus] (100 UNITS/ML) SYG SC ×2 (21:00)
[2018-02-20] MEDS ORDERED: LEVOTHYROXINE 150 MCG TAB PO (06:00)
[2018-02-20] MEDS ORDERED: LEVOTHYROXINE 75 MCG TAB PO (07:30)
== END 2018-02-19 18:55 | disposition left against medical advice (07) | DRG 392 ==
LOC: PP2 05:24
PROVIDERS: Internal Medicine Nephrology
DX: K59.03 Drug induced constipation (principal); E87.2 Acidosis; N39.0 Urinary tract infection, site not specified; G89.29 Other chronic pain; E11.9 Type 2 diabetes mellitus without complications; I10 Essential (primary) hypertension; E03.9 Hypothyroidism, unspecified; R33.9 Retention of urine, unspecified; E78.5 Hyperlipidemia, unspecified; D64.9 Anemia, unspecified
CPT/HCPCS: 80053; 82962; 83605; 85025; 87086

== ENCOUNTER 2018-02-21 06:50 | Inpatient (IN) | payer BC ==
[2018-02-21] MEDS ORDERED: HYDROmorphONE 2 MG TAB PO (10:00)
[2018-02-21] MEDS ORDERED: GLUCOSE GEL 15 GRAM TUBE BUCCAL (12:00)
[2018-02-21] MEDS ORDERED: GLUCAGON 1 MG INJ IM (12:00)
[2018-02-21] MEDS ORDERED: DEXTROSE 50% 50 ML SYRINGE IV ×2 (12:00)
[2018-02-21] MEDS ORDERED: GLUCOSE GEL 15 GRAM TUBE PO ×2 (12:00)
[2018-02-21] MEDS: INSULIN ASPART [NOVOLOG] 3 ML PEN SC ×3 (12:45→21:00)
[2018-02-21] MEDS: HYDROmorphONE 0.5 MG/0.5 ML SYG IV (17:50)
[2018-02-21] MEDS: AMLODIPINE 10 MG TAB PO (17:51)
[2018-02-21] MEDS: METOPROLOL 25 MG TAB PO (17:51)
[2018-02-21] MEDS: LORAZEPAM 2 MG INJ IV (19:49)
[2018-02-21] MEDS: DULOXETINE 30 MG CAP DR PO (22:07)
[2018-02-21] MEDS: BETHANECHOL 25 MG TAB PO (22:07)
[2018-02-21] MEDS: BISACODYL (EC) 5 MG TAB PO (22:08)
[2018-02-21] MEDS: morphine (ER) 15 MG TAB PO (22:08)
[2018-02-21] MEDS: INSULIN GLARGINE [LANTus] (100 UNITS/ML) SYG SC (22:12)
[2018-02-22] MEDS: ACCU-CHEK XX (02:00)
[2018-02-22] MEDS: LEVOTHYROXINE 150 MCG TAB PO (06:00)
[2018-02-22] MEDS: INSULIN ASPART [NOVOLOG] 3 ML PEN SC ×5 (08:00→20:54)
[2018-02-22] MEDS ORDERED: morphine (ER) 15 MG TAB PO (09:00)
[2018-02-22] MEDS: BISACODYL (EC) 5 MG TAB PO ×2 (09:16→20:59)
[2018-02-22] MEDS: DULOXETINE 30 MG CAP DR PO (09:16)
[2018-02-22] MEDS: BETHANECHOL 25 MG TAB PO ×3 (09:16→20:55)
[2018-02-22] MEDS: AMLODIPINE 10 MG TAB PO (09:21)
[2018-02-22] MEDS: METOPROLOL 25 MG TAB PO (09:21)
[2018-02-22] MEDS: morphine (ER) 15 MG TAB PO ×2 (09:22→20:56)
[2018-02-22] MEDS: traMADol 50 MG TAB PO (12:56)
[2018-02-22] MEDS ORDERED: LACTULOSE 30ML CUP PO (17:30)
[2018-02-22] MEDS ORDERED: BISACODYL 10 MG SUPP PR (17:30)
[2018-02-22] MEDS: BISACODYL 10 MG SUPP PR (18:23)
[2018-02-22] MEDS: INSULIN GLARGINE [LANTus] (100 UNITS/ML) SYG SC (20:58)
[2018-02-22] MEDS: DOCUSATE SODIUM 100 MG CAP PO (20:59)
[2018-02-23] MEDS: ACCU-CHEK XX (01:54)
[2018-02-23] MEDS: LEVOTHYROXINE 150 MCG TAB PO (05:55)
[2018-02-23] MEDS: INSULIN ASPART [NOVOLOG] 3 ML PEN SC ×7 (08:00→21:00)
[2018-02-23] MEDS: morphine (ER) 15 MG TAB PO ×3 (09:00→21:14)
[2018-02-23] MEDS: METOPROLOL 25 MG TAB PO (09:00)
[2018-02-23] MEDS: AMLODIPINE 10 MG TAB PO (09:00)
[2018-02-23] MEDS: DOCUSATE SODIUM 100 MG CAP PO ×2 (10:34→21:14)
[2018-02-23] MEDS: BETHANECHOL 25 MG TAB PO ×3 (10:34→21:14)
[2018-02-23] MEDS: DULOXETINE 30 MG CAP DR PO (10:34)
[2018-02-23] MEDS: BISACODYL (EC) 5 MG TAB PO ×2 (10:34→21:14)
[2018-02-23] MEDS: traMADol 50 MG TAB PO ×2 (10:40→21:25)
[2018-02-23 14:03] LABS: ADD MAN DIFF? NO
[2018-02-23 14:06] LABS: WHITE BLOOD COUNT 7.3 10^3/ul (4.8-10.8)
[2018-02-23 14:06] LABS: BASOPHIL # 0.1 10^3/ul (0.0-0.1); BASOPHILS % 0.7 % (0.0-2.0); EOSINOPHILS # 0.1 10^3/ul (0.0-0.5); EOSINOPHILS % 1.9 % (0.0-7.0); HEMATOCRIT 32.9 % (37.0-47.0); HEMOGLOBIN 11.6 g/dl (12.0-16.0); LYMPHOCYTES # 1.1 10^3/ul (0.8-2.9); LYMPHOCYTES % 14.4 % (15.0-51.0); MEAN CORPUSCULAR HEMOGLOBIN 30.1 pg (29.0-33.0); MEAN CORPUSCULAR HGB CONC 35.3 g/dl (32.0-37.0); MEAN CORPUSCULAR VOLUME 85.5 fl (82.0-101.0); MONOCYTE # 0.4 10^3/ul (0.3-0.9); MONOCYTES % 5.3 % (0.0-11.0); NEUTROPHIL # 5.7 10^3/ul (1.6-7.5); NEUTROPHILS % 77.4 % (39.0-77.0); PLATELET COUNT 319 10^3/UL (140-415); RED BLOOD COUNT 3.85 10^6/ul (4.20-5.40); RED CELL DISTRIBUTION WIDTH 12.5 % (11.5-14.5)
[2018-02-23 14:22] LABS: PHOSPHORUS 4.8 mg/dl (2.5-4.9)
[2018-02-23 14:22] LABS: MAGNESIUM 1.8 mg/dl (1.7-2.5)
[2018-02-23 14:23] LABS: ANION GAP 10 (8-16); BLOOD UREA NITROGEN 11 mg/dl (7-20); CALCIUM 9.1 mg/dl (8.4-10.2); CARBON DIOXIDE 29 mmol/L (21-31); CHLORIDE 98 mmol/L (97-110); CREATININE 0.46 mg/dl (0.44-1.00); GLUCOSE 108 mg/dl (70-220); POTASSIUM 4.1 mmol/L (3.5-5.1); SODIUM 133 mmol/L (135-144)
[2018-02-23] MEDS: ONDANSETRON 4 MG INJ IV (16:02)
[2018-02-23] MEDS: metroNIDAZOLE 0.75% 70 GM VAG GEL VAG (16:02)
[2018-02-23] MEDS: INSULIN GLARGINE [LANTus] (100 UNITS/ML) SYG SC (20:00)
[2018-02-24] MEDS: ACCU-CHEK XX (02:00)
[2018-02-24] MEDS: LEVOTHYROXINE 150 MCG TAB PO (05:45)
[2018-02-24] MEDS: INSULIN ASPART [NOVOLOG] 3 ML PEN SC ×4 (07:56→12:00)
[2018-02-24] MEDS: METOPROLOL 25 MG TAB PO (09:00)
[2018-02-24] MEDS: morphine (ER) 15 MG TAB PO (09:00)
[2018-02-24] MEDS: DOCUSATE SODIUM 100 MG CAP PO (09:00)
[2018-02-24] MEDS: DULOXETINE 30 MG CAP DR PO (09:00)
[2018-02-24] MEDS: AMLODIPINE 10 MG TAB PO (09:00)
[2018-02-24] MEDS: BETHANECHOL 25 MG TAB PO ×2 (09:00→13:00)
[2018-02-24] MEDS: BISACODYL (EC) 5 MG TAB PO (09:00)
== END 2018-02-24 13:10 | disposition home or self-care (01) | DRG 552 ==
LOC: 5EC 06:50
PROVIDERS: Internal Medicine
DX: M51.36 Other intervertebral disc degeneration, lumbar region (principal); F11.20 Opioid dependence, uncomplicated; G61.0 Guillain-Barre syndrome; E11.9 Type 2 diabetes mellitus without complications; I10 Essential (primary) hypertension; E78.5 Hyperlipidemia, unspecified; E03.9 Hypothyroidism, unspecified; R33.9 Retention of urine, unspecified; F32.9 Major depressive disorder, single episode, unspecified
CPT/HCPCS: 72146; 72148; 80048; 82962; 83735; 84100; 85025; 87081; 97161

== ENCOUNTER 2018-03-12 20:47 | Inpatient (IN) | payer BC ==
[2018-03-12] MEDS ORDERED: GLUCOSE GEL 15 GRAM TUBE BUCCAL (23:00)
[2018-03-12] MEDS ORDERED: GLUCOSE GEL 15 GRAM TUBE PO ×2 (23:00)
[2018-03-12] MEDS ORDERED: GLUCAGON 1 MG INJ IM (23:00)
[2018-03-12] MEDS ORDERED: DEXTROSE 50% 50 ML SYRINGE IV ×2 (23:00)
[2018-03-12] MEDS: SOD CHLORIDE 0.45% 1,000 ML IV (23:06)
[2018-03-12] MEDS: CEFTRIAXONE 1 GM/50 ML (PMX) 50 ML IVPB (23:07)
[2018-03-12] MEDS: HYDROmorphONE 1 MG/ML SYG IV (23:08)
[2018-03-13] MEDS: ACCU-CHEK XX ×2 (01:18→01:31)
[2018-03-13] MEDS: HYDROmorphONE 1 MG/ML SYG IV ×7 (03:09→23:53)
[2018-03-13 05:58] LABS: ADD MAN DIFF? NO
[2018-03-13 06:08] LABS: WHITE BLOOD COUNT 6.6 10^3/ul (4.8-10.8)
[2018-03-13 06:08] LABS: BASOPHILS % 0.5 % (0.0-2.0); EOSINOPHILS # 0.2 10^3/ul (0.0-0.5); EOSINOPHILS % 3.7 % (0.0-7.0); HEMATOCRIT 27.4 % (37.0-47.0); HEMOGLOBIN 9.4 g/dl (12.0-16.0); LYMPHOCYTES # 1.3 10^3/ul (0.8-2.9); LYMPHOCYTES % 19.8 % (15.0-51.0); MEAN CORPUSCULAR HEMOGLOBIN 29.7 pg (29.0-33.0); MEAN CORPUSCULAR HGB CONC 34.3 g/dl (32.0-37.0); MEAN CORPUSCULAR VOLUME 86.4 fl (82.0-101.0); MEAN PLATELET VOLUME 9.1 fl (7.4-10.4); MONOCYTE # 0.5 10^3/ul (0.3-0.9); MONOCYTES % 7.8 % (0.0-11.0); NEUTROPHIL # 4.5 10^3/ul (1.6-7.5); NEUTROPHILS % 67.7 % (39.0-77.0); PLATELET COUNT 237 10^3/UL (140-415); RED BLOOD COUNT 3.17 10^6/ul (4.20-5.40); RED CELL DISTRIBUTION WIDTH 12.7 % (11.5-14.5)
[2018-03-13 07:20] LABS: ALBUMIN 2.8 g/dl (3.3-4.9); ALBUMIN/GLOBULIN RATIO 0.87; ALKALINE PHOSPHATASE 63 IU/L (42-121); ANION GAP 9 (8-16); ASPARTATE AMINO TRANSFERASE 19 IU/L (15-46); BILIRUBIN,INDIRECT 0.2 mg/dl (0-1.1); BILIRUBIN,TOTAL 0.2 mg/dl (0.2-1.3); BLOOD UREA NITROGEN 7 mg/dl (7-20); CALCIUM 8.3 mg/dl (8.4-10.2); CARBON DIOXIDE 29 mmol/L (21-31); CHLORIDE 98 mmol/L (97-110); CREATININE 0.35 mg/dl (0.44-1.00); GLUCOSE 112 mg/dl (70-220); SODIUM 132 mmol/L (135-144)
[2018-03-13 07:32] LABS: ALANINE AMINOTRANSFERASE 25 IU/L (13-69)
[2018-03-13] MEDS ORDERED: INSULIN ASPART [NOVOLOG] 3 ML PEN SC (08:00)
[2018-03-13] MEDS: INSULIN ASPART [NOVOLOG] 3 ML PEN SC ×4 (08:07→21:00)
[2018-03-13] MEDS: GABAPENTIN 100 MG CAP PO ×3 (08:12→21:48)
[2018-03-13] MEDS: FAMOTIDINE 20 MG TAB PO ×2 (08:12→21:47)
[2018-03-13] MEDS: LACTULOSE 30ML CUP PO ×2 (08:12→21:47)
[2018-03-13] MEDS: POLYETHYLENE GLYCOL 17 GM PACKET GTB (11:03)
[2018-03-13] MEDS: SOD CHLORIDE 0.45% 1,000 ML IV ×2 (11:04→23:53)
[2018-03-13] MEDS ORDERED: POLYETHYLENE GLYCOL 17 GM PACKET PO (18:00)
[2018-03-13] MEDS ORDERED: BISACODYL (EC) 5 MG TAB PO (18:30)
[2018-03-13] MEDS ORDERED: DOCUSATE SODIUM 100 MG CAP PO (18:30)
[2018-03-13] MEDS ORDERED: ZOLPIDEM 5 MG TAB PO (18:30)
[2018-03-13] MEDS ORDERED: NACL 0.9% 3 ML SYG IV (18:30)
[2018-03-13] MEDS ORDERED: MAGNESIUM HYDROXIDE 30ML CUP PO (18:30)
[2018-03-13] MEDS ORDERED: INSULIN GLARGINE [LANTus] (100 UNITS/ML) SYG SC (20:00)
[2018-03-13] MEDS: INSULIN GLARGINE [LANTus] (100 UNITS/ML) SYG SC (21:47)
[2018-03-13] MEDS: BISACODYL (EC) 5 MG TAB PO (21:47)
[2018-03-13] MEDS: BETHANECHOL 25 MG TAB PO (21:48)
[2018-03-13] MEDS: POLYSACCHARIDE IRON COMPLEX CAP PO (21:48)
[2018-03-13] MEDS: CEFTRIAXONE 1 GM/50 ML (PMX) 50 ML IVPB (21:48)
[2018-03-14] MEDS: ACCU-CHEK XX ×2 (01:10)
[2018-03-14] MEDS: HYDROmorphONE 1 MG/ML SYG IV ×5 (03:49→20:04)
[2018-03-14] MEDS: LEVOTHYROXINE 150 MCG TAB PO (06:27)
[2018-03-14 07:45] LABS: ALANINE AMINOTRANSFERASE 21 IU/L (13-69); ALBUMIN 2.5 g/dl (3.3-4.9); ALKALINE PHOSPHATASE 60 IU/L (42-121); ANION GAP 7 (8-16); ASPARTATE AMINO TRANSFERASE 20 IU/L (15-46); BILIRUBIN,INDIRECT 0.2 mg/dl (0-1.1); BILIRUBIN,TOTAL 0.2 mg/dl (0.2-1.3); BLOOD UREA NITROGEN 7 mg/dl (7-20); CALCIUM 8.5 mg/dl (8.4-10.2); CARBON DIOXIDE 32 mmol/L (21-31); CHLORIDE 98 mmol/L (97-110); CREATININE 0.46 mg/dl (0.44-1.00); GLUCOSE 139 mg/dl (70-220); POTASSIUM 3.7 mmol/L (3.5-5.1); SODIUM 133 mmol/L (135-144); TOTAL PROTEIN 5.6 g/dl (6.1-8.1)
[2018-03-14] MEDS: POLYETHYLENE GLYCOL 17 GM PACKET GTB (09:00)
[2018-03-14] MEDS: LACTULOSE 30ML CUP PO ×3 (09:48→21:15)
[2018-03-14] MEDS: GABAPENTIN 100 MG CAP PO ×4 (09:48→21:15)
[2018-03-14] MEDS: FAMOTIDINE 20 MG TAB PO ×3 (09:48→21:15)
[2018-03-14] MEDS: DULOXETINE 30 MG CAP DR PO (09:48)
[2018-03-14] MEDS: POLYSACCHARIDE IRON COMPLEX CAP PO ×3 (09:49→21:16)
[2018-03-14] MEDS: BISACODYL (EC) 5 MG TAB PO ×3 (09:49→21:16)
[2018-03-14] MEDS: AMLODIPINE 10 MG TAB PO (09:49)
[2018-03-14] MEDS: METOPROLOL 25 MG TAB PO (09:49)
[2018-03-14] MEDS: BETHANECHOL 25 MG TAB PO ×4 (09:52→21:15)
[2018-03-14] MEDS: ENOXAPARIN 40 MG/0.4 ML SYG SC (09:54)
[2018-03-14] MEDS: INSULIN ASPART [NOVOLOG] 3 ML PEN SC ×4 (10:54→21:00)
[2018-03-14] MEDS: SOD CHLORIDE 0.45% 1,000 ML IV (12:49)
[2018-03-14] MEDS: CIPROFLOXACIN 500 MG TAB PO (17:33)
[2018-03-14] MEDS: ONDANSETRON 4 MG INJ IV (21:16)
[2018-03-14] MEDS: INSULIN GLARGINE [LANTus] (100 UNITS/ML) SYG SC (21:17)
[2018-03-15] MEDS: HYDROmorphONE 1 MG/ML SYG IV ×6 (00:07→20:48)
[2018-03-15] MEDS: ACCU-CHEK XX ×2 (01:56→01:59)
[2018-03-15] MEDS: SOD CHLORIDE 0.45% 1,000 ML IV ×2 (02:06→15:42)
[2018-03-15 04:51] LABS: HEMOGLOBIN A1C 7.8 % (0-5.9)
[2018-03-15] MEDS: LEVOTHYROXINE 150 MCG TAB PO (06:27)
[2018-03-15] MEDS: CIPROFLOXACIN 500 MG TAB PO ×2 (06:27→17:17)
[2018-03-15] MEDS: INSULIN ASPART [NOVOLOG] 3 ML PEN SC ×4 (08:00→20:52)
[2018-03-15] MEDS: LACTULOSE 30ML CUP PO ×2 (08:21→20:45)
[2018-03-15] MEDS: POLYSACCHARIDE IRON COMPLEX CAP PO ×2 (08:21→20:46)
[2018-03-15] MEDS: POLYETHYLENE GLYCOL 17 GM PACKET GTB (08:21)
[2018-03-15] MEDS: FAMOTIDINE 20 MG TAB PO ×2 (08:21→20:46)
[2018-03-15] MEDS: BETHANECHOL 25 MG TAB PO ×3 (08:22→20:52)
[2018-03-15] MEDS: AMLODIPINE 10 MG TAB PO (08:23)
[2018-03-15] MEDS: GABAPENTIN 100 MG CAP PO ×3 (08:23→20:46)
[2018-03-15] MEDS: DULOXETINE 30 MG CAP DR PO (08:23)
[2018-03-15] MEDS: METOPROLOL 25 MG TAB PO (08:24)
[2018-03-15] MEDS: BISACODYL (EC) 5 MG TAB PO ×2 (08:24→20:46)
[2018-03-15] MEDS: ENOXAPARIN 40 MG/0.4 ML SYG SC (08:25)
[2018-03-15] MEDS: ONDANSETRON 4 MG INJ IV ×2 (08:32→17:18)
[2018-03-15] MEDS ORDERED: HYDROmorphONE 2 MG TAB PO (16:00)
[2018-03-15] MEDS: INSULIN GLARGINE [LANTus] (100 UNITS/ML) SYG SC (20:48)
[2018-03-16] MEDS: HYDROmorphONE 1 MG/ML SYG IV ×3 (01:01→09:20)
[2018-03-16] MEDS: ACCU-CHEK XX ×2 (01:05)
[2018-03-16] MEDS: SOD CHLORIDE 0.45% 1,000 ML IV (05:01)
[2018-03-16] MEDS: CIPROFLOXACIN 500 MG TAB PO (05:01)
[2018-03-16] MEDS: LEVOTHYROXINE 150 MCG TAB PO (05:01)
[2018-03-16] MEDS: LACTULOSE 30ML CUP PO (09:00)
[2018-03-16] MEDS: BISACODYL (EC) 5 MG TAB PO (09:00)
[2018-03-16] MEDS: POLYETHYLENE GLYCOL 17 GM PACKET GTB (09:00)
[2018-03-16] MEDS: INSULIN ASPART [NOVOLOG] 3 ML PEN SC ×2 (09:12→12:00)
[2018-03-16] MEDS: POLYSACCHARIDE IRON COMPLEX CAP PO (09:20)
[2018-03-16] MEDS: FAMOTIDINE 20 MG TAB PO (09:20)
[2018-03-16] MEDS: GABAPENTIN 100 MG CAP PO ×3 (09:20→13:00)
[2018-03-16] MEDS: DULOXETINE 30 MG CAP DR PO (09:20)
[2018-03-16] MEDS: AMLODIPINE 10 MG TAB PO (09:21)
[2018-03-16] MEDS: METOPROLOL 25 MG TAB PO (09:22)
[2018-03-16] MEDS: ENOXAPARIN 40 MG/0.4 ML SYG SC (09:25)
[2018-03-16] MEDS: BETHANECHOL 25 MG TAB PO ×3 (09:28→13:00)
[2018-03-16] MEDS: ONDANSETRON 4 MG INJ IV (09:35)
[2018-03-16] MEDS ORDERED: traMADol 50 MG TAB PO (13:30)
== END 2018-03-16 15:25 | disposition left against medical advice (07) | DRG 690 ==
LOC: 2NE 20:47 → 5EC 03-13 20:20
DX: N39.0 Urinary tract infection, site not specified (principal); G61.0 Guillain-Barre syndrome; E87.1 Hypo-osmolality and hyponatremia; K59.00 Constipation, unspecified; K31.9 Disease of stomach and duodenum, unspecified; Z74.01 Bed confinement status; Z76.5 Malingerer [conscious simulation]; M79.1 Myalgia; E11.9 Type 2 diabetes mellitus without complications
CPT/HCPCS: 80053; 82962; 83036; 85025; 87081

== ENCOUNTER 2018-04-22 14:16 | Inpatient (IN) | payer BC ==
[2018-04-22] MEDS ORDERED: DOCUSATE SODIUM 100 MG CAP PO (16:00)
[2018-04-22] MEDS ORDERED: BISACODYL (EC) 5 MG TAB PO (16:00)
[2018-04-22] MEDS ORDERED: GLUCAGON 1 MG INJ IM (16:00)
[2018-04-22] MEDS ORDERED: NACL 0.9% 3 ML SYG IV (16:00)
[2018-04-22] MEDS ORDERED: NA PHOSPHATE/BIPHOS 133 ML ENEMA PR (16:00)
[2018-04-22] MEDS ORDERED: BISACODYL 10 MG SUPP PR (16:00)
[2018-04-22] MEDS ORDERED: GLUCOSE GEL 15 GRAM TUBE PO ×2 (16:00)
[2018-04-22] MEDS ORDERED: DEXTROSE 50% 50 ML SYRINGE IV ×2 (16:00)
[2018-04-22] MEDS ORDERED: POLYETHYLENE GLYCOL 17 GM PACKET PO (16:00)
[2018-04-22] MEDS ORDERED: GLUCOSE GEL 15 GRAM TUBE BUCCAL (16:00)
[2018-04-22] MEDS ORDERED: MAGNESIUM HYDROXIDE 30ML CUP PO (16:00)
[2018-04-22] MEDS: HYDROmorphONE 0.5 MG/0.5 ML SYG IV ×2 (16:28→20:34)
[2018-04-22] MEDS: ONDANSETRON 4 MG INJ IV ×2 (16:28→21:37)
[2018-04-22] MEDS: SOD CHLORIDE 0.45% 1,000 ML IV (16:29)
[2018-04-22] MEDS: INSULIN ASPART [NOVOLOG] 3 ML PEN SC ×2 (17:55→20:45)
[2018-04-22] MEDS: DOCUSATE SODIUM 100 MG CAP PO (20:44)
[2018-04-22] MEDS: BISACODYL (EC) 5 MG TAB PO (20:44)
[2018-04-22] MEDS: INSULIN GLARGINE [LANTus] (100 UNITS/ML) SYG SC (20:45)
[2018-04-23] MEDS ORDERED: PENDING SANTYL ORDER FOR WOUND CARE XX
[2018-04-23] MEDS: HYDROmorphONE 0.5 MG/0.5 ML SYG IV ×4 (00:34→12:34)
[2018-04-23] MEDS: ACCU-CHEK XX (01:22)
[2018-04-23 06:00] LABS: ADD MAN DIFF? NO
[2018-04-23 06:04] LABS: BASOPHILS % 0.5 % (0.0-2.0); EOSINOPHILS # 0.1 10^3/ul (0.0-0.5); EOSINOPHILS % 2.5 % (0.0-7.0); LYMPHOCYTES # 1.6 10^3/ul (0.8-2.9); LYMPHOCYTES % 27.9 % (15.0-51.0); MEAN CORPUSCULAR HEMOGLOBIN 29.3 pg (29.0-33.0); MEAN CORPUSCULAR HGB CONC 34.8 g/dl (32.0-37.0); MEAN CORPUSCULAR VOLUME 84.2 fl (82.0-101.0); MEAN PLATELET VOLUME 10.7 fl (7.4-10.4); MONOCYTE # 0.4 10^3/ul (0.3-0.9); MONOCYTES % 7.2 % (0.0-11.0); NEUTROPHIL # 3.4 10^3/ul (1.6-7.5); NEUTROPHILS % 61.4 % (39.0-77.0); RED BLOOD COUNT 2.73 10^6/ul (4.20-5.40); RED CELL DISTRIBUTION WIDTH 13.3 % (11.5-14.5)
[2018-04-23 06:04] LABS: WHITE BLOOD COUNT 5.6 10^3/ul (4.8-10.8)
[2018-04-23 06:05] LABS: PLATELET COUNT 181 10^3/UL (140-415); POSITIVE DIFF @See below
[2018-04-23] MEDS: LEVOTHYROXINE 150 MCG TAB PO (06:31)
[2018-04-23] MEDS: PANTOPRAZOLE (EC) 40 MG TAB PO (06:31)
[2018-04-23 06:34] LABS: ALANINE AMINOTRANSFERASE 10 IU/L (13-69); ALBUMIN 2.7 g/dl (3.3-4.9); ALBUMIN/GLOBULIN RATIO 0.81; ALKALINE PHOSPHATASE 67 IU/L (42-121); ANION GAP 4 (5-13); ASPARTATE AMINO TRANSFERASE 16 IU/L (15-46); BILIRUBIN,INDIRECT 0.3 mg/dl (0-1.1); BILIRUBIN,TOTAL 0.3 mg/dl (0.2-1.3); BLOOD UREA NITROGEN 9 mg/dl (7-20); CALCIUM 8.1 mg/dl (8.4-10.2); CARBON DIOXIDE 27 mmol/L (21-31); CHLORIDE 105 mmol/L (97-110); CREATININE 0.31 mg/dl (0.44-1.00); Estimated GFR > 60 mL/min (>60); GLUCOSE 82 mg/dl (70-220); SODIUM 136 mmol/L (135-144)
[2018-04-23 06:38] LABS: POTASSIUM 2.9 mmol/L (3.5-5.1)
[2018-04-23] MEDS: POTASSIUM CHLORIDE (SR) 20 MEQ TAB PO ×2 (07:21→15:30)
[2018-04-23] MEDS: INSULIN ASPART [NOVOLOG] 3 ML PEN SC ×4 (08:00→21:00)
[2018-04-23] MEDS: DULOXETINE 30 MG CAP DR PO (08:35)
[2018-04-23] MEDS: BISACODYL (EC) 5 MG TAB PO ×2 (08:35→21:00)
[2018-04-23] MEDS: DOCUSATE SODIUM 100 MG CAP PO ×2 (08:35→21:00)
[2018-04-23] MEDS: ENOXAPARIN 40 MG/0.4 ML SYG SC (08:37)
[2018-04-23] MEDS: CHOLECALCIFEROL 2,000 UNIT CAP PO (08:37)
[2018-04-23] MEDS: METOPROLOL 25 MG TAB PO (08:38)
[2018-04-23] MEDS: AMLODIPINE 10 MG TAB PO (08:38)
[2018-04-23] MEDS: ONDANSETRON 4 MG INJ IV ×2 (12:34→21:00)
[2018-04-23] MEDS: SOD CHLORIDE 0.45% 1,000 ML IV (15:30)
[2018-04-23] MEDS: DEXTROSE 5%-0.45% NACL 1,000 ML IV (16:35)
[2018-04-23] MEDS: morphine 2 MG INJ IV ×2 (16:35→20:52)
[2018-04-23] MEDS: POTASSIUM CHLORIDE 100 ML IVPB ×2 (16:40→18:21)
[2018-04-23] MEDS: INSULIN GLARGINE [LANTus] (100 UNITS/ML) SYG SC (21:18)
[2018-04-23 22:30] LABS: POTASSIUM 4.1 mmol/L (3.5-5.1)
[2018-04-24] MEDS: morphine 2 MG INJ IV ×6 (01:26→22:46)
[2018-04-24] MEDS: ACCU-CHEK XX (02:00)
[2018-04-24] MEDS: LEVOTHYROXINE 150 MCG TAB PO (05:50)
[2018-04-24] MEDS: PANTOPRAZOLE (EC) 40 MG TAB PO (05:51)
[2018-04-24 07:19] LABS: ADD MAN DIFF? NO
[2018-04-24 07:29] LABS: BASOPHIL # 0.1 10^3/ul (0.0-0.1); BASOPHILS % 0.7 % (0.0-2.0); EOSINOPHILS # 0.1 10^3/ul (0.0-0.5); EOSINOPHILS % 0.8 % (0.0-7.0); HEMATOCRIT 29.7 % (37.0-47.0); HEMOGLOBIN 10.5 g/dl (12.0-16.0); LYMPHOCYTES # 1.1 10^3/ul (0.8-2.9); LYMPHOCYTES % 12.2 % (15.0-51.0); MEAN CORPUSCULAR HEMOGLOBIN 28.8 pg (29.0-33.0); MEAN CORPUSCULAR HGB CONC 35.4 g/dl (32.0-37.0); MEAN CORPUSCULAR VOLUME 81.4 fl (82.0-101.0); MONOCYTE # 0.6 10^3/ul (0.3-0.9); MONOCYTES % 6.7 % (0.0-11.0); NEUTROPHIL # 6.9 10^3/ul (1.6-7.5); NEUTROPHILS % 78.7 % (39.0-77.0); RED BLOOD COUNT 3.65 10^6/ul (4.20-5.40)
[2018-04-24 07:29] LABS: WHITE BLOOD COUNT 8.8 10^3/ul (4.8-10.8)
[2018-04-24 07:30] LABS: PLATELET COUNT 110 10^3/UL (140-415); POSITIVE DIFF @See below
[2018-04-24] MEDS: INSULIN ASPART [NOVOLOG] 3 ML PEN SC ×4 (08:00→21:00)
[2018-04-24 08:05] LABS: ANION GAP 6 (5-13); BLOOD UREA NITROGEN 6 mg/dl (7-20); CALCIUM 8.3 mg/dl (8.4-10.2); CARBON DIOXIDE 28 mmol/L (21-31); CHLORIDE 99 mmol/L (97-110); CREATININE 0.22 mg/dl (0.44-1.00); Estimated GFR > 60 mL/min (>60); GLUCOSE 93 mg/dl (70-220); POTASSIUM 3.4 mmol/L (3.5-5.1); SODIUM 133 mmol/L (135-144)
[2018-04-24] MEDS: DOCUSATE SODIUM 100 MG CAP PO ×2 (09:00→20:58)
[2018-04-24] MEDS: AMLODIPINE 10 MG TAB PO (09:00)
[2018-04-24] MEDS: CHOLECALCIFEROL 2,000 UNIT CAP PO (09:00)
[2018-04-24] MEDS: BISACODYL (EC) 5 MG TAB PO ×2 (09:00→20:59)
[2018-04-24] MEDS: METOPROLOL 25 MG TAB PO (09:00)
[2018-04-24] MEDS: DULOXETINE 30 MG CAP DR PO (09:00)
[2018-04-24] MEDS: ENOXAPARIN 40 MG/0.4 ML SYG SC (09:17)
[2018-04-24] MEDS: POTASSIUM CHLORIDE 100 ML IVPB ×3 (10:06→12:40)
[2018-04-24] MEDS: ONDANSETRON 4 MG INJ IV ×3 (12:40→22:45)
[2018-04-24] MEDS: DEXTROSE 5%-0.45% NACL 1,000 ML IV ×2 (16:00→22:50)
[2018-04-24] MEDS: PENDING SANTYL ORDER FOR WOUND CARE XX (19:00)
[2018-04-24] MEDS: INSULIN GLARGINE [LANTus] (100 UNITS/ML) SYG SC (21:00)
[2018-04-24] MEDS: COLLAGENASE 5 GM (UD JAR) TOP (21:03)
[2018-04-25] MEDS: ACCU-CHEK XX (02:00)
[2018-04-25] MEDS: morphine 2 MG INJ IV ×4 (02:46→15:01)
[2018-04-25] MEDS: ONDANSETRON 4 MG INJ IV ×3 (02:46→15:01)
[2018-04-25] MEDS: LEVOTHYROXINE 150 MCG TAB PO (06:18)
[2018-04-25] MEDS: PANTOPRAZOLE (EC) 40 MG TAB PO (06:18)
[2018-04-25 06:34] LABS: ANION GAP 7 (5-13); BLOOD UREA NITROGEN 5 mg/dl (7-20); CALCIUM 8.3 mg/dl (8.4-10.2); CARBON DIOXIDE 29 mmol/L (21-31); CHLORIDE 98 mmol/L (97-110); CREATININE 0.36 mg/dl (0.44-1.00); Estimated GFR > 60 mL/min (>60); GLUCOSE 91 mg/dl (70-220); POTASSIUM 3.5 mmol/L (3.5-5.1); SODIUM 134 mmol/L (135-144)
[2018-04-25] MEDS: INSULIN ASPART [NOVOLOG] 3 ML PEN SC ×2 (08:00→12:00)
[2018-04-25] MEDS: AMLODIPINE 10 MG TAB PO (08:59)
[2018-04-25] MEDS: CHOLECALCIFEROL 2,000 UNIT CAP PO (08:59)
[2018-04-25] MEDS: COLLAGENASE 5 GM (UD JAR) TOP (09:00)
[2018-04-25] MEDS: DULOXETINE 30 MG CAP DR PO (09:00)
[2018-04-25] MEDS: PENDING SANTYL ORDER FOR WOUND CARE XX (09:00)
[2018-04-25] MEDS: DOCUSATE SODIUM 100 MG CAP PO ×2 (09:00)
[2018-04-25] MEDS: METOPROLOL 25 MG TAB PO (09:00)
[2018-04-25] MEDS: BISACODYL (EC) 5 MG TAB PO (09:00)
[2018-04-25] MEDS: ENOXAPARIN 40 MG/0.4 ML SYG SC (09:01)
== END 2018-04-25 15:32 | DRG 593 ==
LOC: PP2 14:16
PROVIDERS: Internal Medicine Nephrology
DX: L89.153 Pressure ulcer of sacral region, stage 3 (principal); G61.0 Guillain-Barre syndrome; G82.20 Paraplegia, unspecified; L89.310 Pressure ulcer of right buttock, unstageable; E11.622 Type 2 diabetes mellitus with other skin ulcer; E87.6 Hypokalemia; I10 Essential (primary) hypertension; D64.9 Anemia, unspecified; F41.9 Anxiety disorder, unspecified; G89.29 Other chronic pain; Z74.01 Bed confinement status; Z79.4 Long term (current) use of insulin
CPT/HCPCS: 80048; 80053; 82962; 84132; 85025; 87081

== ENCOUNTER 2018-05-07 10:45 | Inpatient (IN) | payer BC ==
[2018-05-07] MEDS ORDERED: ONDANSETRON 4 MG TAB PO (12:00)
[2018-05-07] MEDS ORDERED: HYDROmorphONE 0.5 MG/0.5 ML SYG IV (12:00)
[2018-05-07] MEDS: INSULIN ASPART [NOVOLOG] 3 ML PEN SC ×3 (12:00→20:14)
[2018-05-07] MEDS ORDERED: COLLAGENASE 5 GM (UD JAR) TOP (12:00)
[2018-05-07] MEDS ORDERED: ACETAMINOPHEN 325 MG TAB PO (12:00)
[2018-05-07] MEDS ORDERED: ZOLPIDEM 5 MG TAB PO (12:00)
[2018-05-07] MEDS ORDERED: NACL 0.9% 3 ML SYG IV (12:00)
[2018-05-07] MEDS ORDERED: MAGNESIUM HYDROXIDE 30ML CUP PO (12:00)
[2018-05-07] MEDS ORDERED: DOCUSATE SODIUM 100 MG CAP PO (12:00)
[2018-05-07] MEDS ORDERED: PENDING SANTYL ORDER FOR WOUND CARE XX (12:00)
[2018-05-07] MEDS: SOD CHLORIDE 0.9% 1,000 ML IV (12:16)
[2018-05-07 15:00] LABS: ADD MAN DIFF? NO
[2018-05-07 15:03] LABS: BASOPHILS % 0.8 % (0.0-2.0); EOSINOPHILS # 0.1 10^3/ul (0.0-0.5); EOSINOPHILS % 2.7 % (0.0-7.0); HEMATOCRIT 24.1 % (37.0-47.0); HEMOGLOBIN 8.1 g/dl (12.0-16.0); LYMPHOCYTES # 1.5 10^3/ul (0.8-2.9); LYMPHOCYTES % 29.6 % (15.0-51.0); MEAN CORPUSCULAR HEMOGLOBIN 28.7 pg (29.0-33.0); MEAN CORPUSCULAR HGB CONC 33.6 g/dl (32.0-37.0); MEAN CORPUSCULAR VOLUME 85.5 fl (82.0-101.0); MEAN PLATELET VOLUME 8.5 fl (7.4-10.4); MONOCYTE # 0.4 10^3/ul (0.3-0.9); MONOCYTES % 6.8 % (0.0-11.0); NEUTROPHIL # 3.1 10^3/ul (1.6-7.5); NEUTROPHILS % 59.5 % (39.0-77.0); PLATELET COUNT 264 10^3/UL (140-415); RED BLOOD COUNT 2.82 10^6/ul (4.20-5.40); RED CELL DISTRIBUTION WIDTH 13.7 % (11.5-14.5)
[2018-05-07 15:03] LABS: WHITE BLOOD COUNT 5.2 10^3/ul (4.8-10.8)
[2018-05-07 15:20] LABS: ANION GAP 3 (5-13); BLOOD UREA NITROGEN 17 mg/dl (7-20); CALCIUM 8.1 mg/dl (8.4-10.2); CARBON DIOXIDE 30 mmol/L (21-31); CHLORIDE 102 mmol/L (97-110); CREATININE 0.29 mg/dl (0.44-1.00); Estimated GFR > 60 mL/min (>60); GLUCOSE 102 mg/dl (70-220); POTASSIUM 4.1 mmol/L (3.5-5.1); SODIUM 135 mmol/L (135-144)
[2018-05-07] MEDS: HYDROmorphONE 1 MG/ML SYG IV (15:55)
[2018-05-07] MEDS ORDERED: DEXTROSE 50% 50 ML SYRINGE IV ×2 (16:00)
[2018-05-07] MEDS ORDERED: GLUCOSE GEL 15 GRAM TUBE BUCCAL (16:00)
[2018-05-07] MEDS ORDERED: GLUCAGON 1 MG INJ IM (16:00)
[2018-05-07] MEDS ORDERED: GLUCOSE GEL 15 GRAM TUBE PO ×2 (16:00)
[2018-05-07] MEDS: INSULIN GLARGINE [LANTus] (100 UNITS/ML) SYG SC (20:00)
[2018-05-08] MEDS: OXYCODONE/ACETAMINOPHEN (10/325) TAB PO (00:20)
[2018-05-08] MEDS: SOD CHLORIDE 0.9% 1,000 ML IV ×2 (01:52→16:10)
[2018-05-08] MEDS: ACCU-CHEK XX (02:00)
[2018-05-08] MEDS: PANTOPRAZOLE (EC) 40 MG TAB PO (05:15)
[2018-05-08 06:39] LABS: HEMOGLOBIN A1C 10.6 % (0-5.9)
[2018-05-08] MEDS: INSULIN ASPART [NOVOLOG] 3 ML PEN SC ×5 (08:00→20:34)
[2018-05-08] MEDS: ENOXAPARIN 40 MG/0.4 ML SYG SC (08:39)
[2018-05-08] MEDS: COLLAGENASE 5 GM (UD JAR) TOP (11:06)
[2018-05-08] MEDS: HYDROmorphONE 2 MG TAB PO (11:06)
[2018-05-08] MEDS: KETOROLAC 30 MG INJ IV (13:18)
[2018-05-08] MEDS: morphine 2 MG INJ IV ×2 (15:30→21:53)
[2018-05-08] MEDS: BISACODYL (EC) 5 MG TAB PO (15:30)
[2018-05-08] MEDS: INSULIN GLARGINE [LANTus] (100 UNITS/ML) SYG SC (20:36)
[2018-05-08] MEDS ORDERED: HYDROmorphONE 2 MG TAB PO (22:00)
[2018-05-09] MEDS: ACCU-CHEK XX (02:00)
[2018-05-09] MEDS: morphine 2 MG INJ IV ×4 (04:02→21:56)
[2018-05-09] MEDS: PANTOPRAZOLE (EC) 40 MG TAB PO (05:20)
[2018-05-09] MEDS: SOD CHLORIDE 0.9% 1,000 ML IV ×2 (05:20→18:55)
[2018-05-09] MEDS: COLLAGENASE 5 GM (UD JAR) TOP (08:15)
[2018-05-09] MEDS: ENOXAPARIN 40 MG/0.4 ML SYG SC (08:16)
[2018-05-09] MEDS: INSULIN ASPART [NOVOLOG] 3 ML PEN SC ×5 (08:17→20:39)
[2018-05-09] MEDS: BISACODYL (EC) 5 MG TAB PO (12:26)
[2018-05-09] MEDS: hydrALAzine 20 MG INJ IV (17:14)
[2018-05-09] MEDS: INSULIN GLARGINE [LANTus] (100 UNITS/ML) SYG SC (20:38)
[2018-05-10] MEDS: ACCU-CHEK XX (02:34)
[2018-05-10] MEDS: morphine 2 MG INJ IV ×4 (03:55→21:55)
[2018-05-10] MEDS: INSULIN ASPART [NOVOLOG] 3 ML PEN SC ×5 (08:00→20:53)
[2018-05-10] MEDS: COLLAGENASE 5 GM (UD JAR) TOP (08:13)
[2018-05-10] MEDS: PANTOPRAZOLE (EC) 40 MG TAB PO (08:13)
[2018-05-10] MEDS: SOD CHLORIDE 0.9% 1,000 ML IV (08:13)
[2018-05-10] MEDS: ENOXAPARIN 40 MG/0.4 ML SYG SC (08:20)
[2018-05-10] MEDS: hydrALAzine 20 MG INJ IV ×2 (08:22→22:47)
[2018-05-10] MEDS: LACTULOSE 30ML CUP PO (12:36)
[2018-05-10] MEDS: BISACODYL (EC) 5 MG TAB PO (12:47)
[2018-05-10] MEDS: INSULIN GLARGINE [LANTus] (100 UNITS/ML) SYG SC (20:52)
[2018-05-11] MEDS: ACCU-CHEK XX (02:00)
[2018-05-11] MEDS: morphine 2 MG INJ IV ×3 (04:02→15:59)
[2018-05-11] MEDS: PANTOPRAZOLE (EC) 40 MG TAB PO (05:52)
[2018-05-11] MEDS: INSULIN ASPART [NOVOLOG] 3 ML PEN SC ×2 (08:00→12:00)
[2018-05-11] MEDS: COLLAGENASE 5 GM (UD JAR) TOP (09:20)
[2018-05-11] MEDS: ENOXAPARIN 40 MG/0.4 ML SYG SC (09:20)
[2018-05-11] MEDS: BISACODYL (EC) 5 MG TAB PO (09:58)
== END 2018-05-11 17:15 | disposition home health service (06) | DRG 593 ==
LOC: 5EC 10:45
PROVIDERS: Internal Medicine
DX: L89.310 Pressure ulcer of right buttock, unstageable (principal); G82.20 Paraplegia, unspecified; L89.210 Pressure ulcer of right hip, unstageable; L89.150 Pressure ulcer of sacral region, unstageable; G65.0 Sequelae of Guillain-Barre syndrome; E11.65 Type 2 diabetes mellitus with hyperglycemia; I10 Essential (primary) hypertension; K59.09 Other constipation; G89.4 Chronic pain syndrome; Z79.4 Long term (current) use of insulin; Z99.3 Dependence on wheelchair
CPT/HCPCS: 80048; 82962; 83036; 85025; 97161

== ENCOUNTER 2018-07-08 03:53 | Inpatient (IN) | payer BC ==
[2018-07-08] MEDS ORDERED: PENDING SANTYL ORDER FOR WOUND CARE XX (05:30)
[2018-07-08] MEDS ORDERED: DOCUSATE SODIUM 100 MG CAP PO (06:30)
[2018-07-08] MEDS ORDERED: ONDANSETRON 4 MG INJ IV (06:30)
[2018-07-08] MEDS ORDERED: ACETAMINOPHEN 325 MG TAB PO (06:30)
[2018-07-08] MEDS ORDERED: BISACODYL 10 MG SUPP PR (06:30)
[2018-07-08] MEDS: POLYETHYLENE GLYCOL 17 GM PACKET PO (06:58)
[2018-07-08] MEDS: traMADol 50 MG TAB PO ×2 (06:58→07:37)
[2018-07-08] MEDS ORDERED: DEXTROSE 50% 50 ML SYRINGE IV ×2 (07:00)
[2018-07-08] MEDS ORDERED: GLUCOSE GEL 15 GRAM TUBE PO ×2 (07:00)
[2018-07-08] MEDS ORDERED: GLUCAGON 1 MG INJ IM (07:00)
[2018-07-08] MEDS ORDERED: GLUCOSE GEL 15 GRAM TUBE BUCCAL (07:00)
[2018-07-08 08:30] LABS: ADD MAN DIFF? NO
[2018-07-08 08:42] LABS: BASOPHILS % 0.7 % (0.0-2.0); EOSINOPHILS # 0.1 10^3/ul (0.0-0.5); EOSINOPHILS % 1.8 % (0.0-7.0); HEMATOCRIT 28.3 % (37.0-47.0); HEMOGLOBIN 9.6 g/dl (12.0-16.0); LYMPHOCYTES # 1.4 10^3/ul (0.8-2.9); LYMPHOCYTES % 24.7 % (15.0-51.0); MEAN CORPUSCULAR HEMOGLOBIN 28.2 pg (29.0-33.0); MEAN CORPUSCULAR HGB CONC 33.9 g/dl (32.0-37.0); MEAN PLATELET VOLUME 8.5 fl (7.4-10.4); MONOCYTE # 0.3 10^3/ul (0.3-0.9); MONOCYTES % 5.5 % (0.0-11.0); NEUTROPHIL # 3.8 10^3/ul (1.6-7.5); NEUTROPHILS % 66.9 % (39.0-77.0); PLATELET COUNT 275 10^3/UL (140-415); RED BLOOD COUNT 3.41 10^6/ul (4.20-5.40); RED CELL DISTRIBUTION WIDTH 13.7 % (11.5-14.5)
[2018-07-08 08:42] LABS: WHITE BLOOD COUNT 5.6 10^3/ul (4.8-10.8)
[2018-07-08] MEDS: INSULIN ASPART [NOVOLOG] 3 ML PEN SC ×4 (08:50→21:00)
[2018-07-08] MEDS: ENOXAPARIN 40 MG/0.4 ML SYG SC (08:50)
[2018-07-08] MEDS: OXYCODONE/ACETAMINOPHEN (5/325) TAB PO ×2 (08:52→16:12)
[2018-07-08] MEDS: hydrALAzine 20 MG INJ IV ×2 (08:56→11:47)
[2018-07-08 09:04] LABS: ANION GAP 7 (5-13); BLOOD UREA NITROGEN 9 mg/dl (7-20); CARBON DIOXIDE 30 mmol/L (21-31); CHLORIDE 99 mmol/L (97-110); CREATININE 0.35 mg/dl (0.44-1.00); Estimated GFR > 60 mL/min (>60); GLUCOSE 217 mg/dl (70-220); POTASSIUM 3.3 mmol/L (3.5-5.1); SODIUM 136 mmol/L (135-144)
[2018-07-08] MEDS: DIPHENHYDRAMINE 50 MG INJ IV ×2 (09:41→19:39)
[2018-07-08] MEDS ORDERED: AMLODIPINE 10 MG TAB PO (12:00)
[2018-07-08] MEDS ORDERED: POLYETHYLENE GLYCOL 17 GM PACKET PO (12:00)
[2018-07-08] MEDS: DULOXETINE 30 MG CAP DR PO (12:53)
[2018-07-08] MEDS: BISACODYL (EC) 5 MG TAB PO ×2 (12:53→22:45)
[2018-07-08] MEDS: CHOLECALCIFEROL 2,000 UNIT CAP PO (12:53)
[2018-07-08] MEDS: POTASSIUM CHLORIDE 20 MEQ POWDER FOR ORAL SOLN PO (12:54)
[2018-07-08] MEDS: POLYSACCHARIDE IRON COMPLEX CAP PO ×2 (12:56→22:45)
[2018-07-08] MEDS: AMLODIPINE 10 MG TAB PO (17:30)
[2018-07-08] MEDS ORDERED: INSULIN GLARGINE [LANTus] (100 UNITS/ML) SYG SC ×4 (20:00)
[2018-07-08] MEDS: INSULIN GLARGINE [LANTus] (100 UNITS/ML) SYG SC (20:00)
[2018-07-09] MEDS: ACCU-CHEK XX (00:19)
[2018-07-09] MEDS: OXYCODONE/ACETAMINOPHEN (5/325) TAB PO ×3 (00:58→12:30)
[2018-07-09] MEDS: LEVOTHYROXINE 150 MCG TAB PO (05:32)
[2018-07-09] MEDS: PANTOPRAZOLE (EC) 40 MG TAB PO (05:32)
[2018-07-09] MEDS: DIPHENHYDRAMINE 50 MG INJ IV ×2 (05:32→14:28)
[2018-07-09] MEDS ORDERED: PANTOPRAZOLE 40 MG INJ IV (06:00)
[2018-07-09] MEDS: INSULIN ASPART [NOVOLOG] 3 ML PEN SC ×2 (08:00→14:27)
[2018-07-09] MEDS: POLYSACCHARIDE IRON COMPLEX CAP PO (08:25)
[2018-07-09] MEDS: DULOXETINE 30 MG CAP DR PO (08:25)
[2018-07-09] MEDS: BISACODYL (EC) 5 MG TAB PO (08:25)
[2018-07-09] MEDS: hydrALAzine 20 MG INJ IV (08:25)
[2018-07-09] MEDS: CHOLECALCIFEROL 2,000 UNIT CAP PO (08:26)
[2018-07-09] MEDS: AMLODIPINE 10 MG TAB PO (08:26)
[2018-07-09] MEDS: ENOXAPARIN 40 MG/0.4 ML SYG SC (08:26)
[2018-07-09 09:04] LABS: ADD MAN DIFF? NO
[2018-07-09 09:08] LABS: WHITE BLOOD COUNT 4.5 10^3/ul (4.8-10.8)
[2018-07-09 09:08] LABS: BASOPHILS % 0.9 % (0.0-2.0); EOSINOPHILS # 0.1 10^3/ul (0.0-0.5); HEMATOCRIT 26.1 % (37.0-47.0); HEMOGLOBIN 8.8 g/dl (12.0-16.0); LYMPHOCYTES # 1.1 10^3/ul (0.8-2.9); LYMPHOCYTES % 24.3 % (15.0-51.0); MEAN CORPUSCULAR HEMOGLOBIN 28.2 pg (29.0-33.0); MEAN CORPUSCULAR HGB CONC 33.7 g/dl (32.0-37.0); MEAN CORPUSCULAR VOLUME 83.7 fl (82.0-101.0); MEAN PLATELET VOLUME 8.5 fl (7.4-10.4); MONOCYTE # 0.2 10^3/ul (0.3-0.9); MONOCYTES % 5.4 % (0.0-11.0); NEUTROPHILS % 67.2 % (39.0-77.0); PLATELET COUNT 259 10^3/UL (140-415); RED BLOOD COUNT 3.12 10^6/ul (4.20-5.40); RED CELL DISTRIBUTION WIDTH 14.3 % (11.5-14.5)
[2018-07-09 09:27] LABS: HEMOGLOBIN A1C 8.6 % (0-5.9)
[2018-07-09 09:37] LABS: ANION GAP 5 (5-13); BLOOD UREA NITROGEN 12 mg/dl (7-20); CARBON DIOXIDE 33 mmol/L (21-31); CHLORIDE 97 mmol/L (97-110); CREATININE 0.41 mg/dl (0.44-1.00); Estimated GFR > 60 mL/min (>60); GLUCOSE 131 mg/dl (70-220); POTASSIUM 3.9 mmol/L (3.5-5.1); SODIUM 135 mmol/L (135-144)
== END 2018-07-09 16:45 | disposition home health service (06) | DRG 91 ==
LOC: MS1 03:53 → 5EC 15:43
DX: G89.4 Chronic pain syndrome (principal); L89.313 Pressure ulcer of right buttock, stage 3; G82.20 Paraplegia, unspecified; G61.0 Guillain-Barre syndrome; F11.20 Opioid dependence, uncomplicated; E11.65 Type 2 diabetes mellitus with hyperglycemia; I10 Essential (primary) hypertension; K59.09 Other constipation; D50.9 Iron deficiency anemia, unspecified; E87.6 Hypokalemia; R33.9 Retention of urine, unspecified
CPT/HCPCS: 80048; 82962; 83036; 85025

== ENCOUNTER 2018-11-10 14:07 | Inpatient (IN) | payer BC ==
[2018-11-10 15:55] LABS: ADD MAN DIFF? NO
[2018-11-10 15:57] LABS: WHITE BLOOD COUNT 4.2 10^3/ul (4.8-10.8)
[2018-11-10 15:57] LABS: BASOPHIL # 0.1 10^3/ul (0.0-0.1); BASOPHILS % 1.2 % (0.0-2.0); EOSINOPHILS # 0.1 10^3/ul (0.0-0.5); EOSINOPHILS % 1.2 % (0.0-7.0); HEMATOCRIT 28.9 % (37.0-47.0); HEMOGLOBIN 9.5 g/dl (12.0-16.0); LYMPHOCYTES # 1.7 10^3/ul (0.8-2.9); LYMPHOCYTES % 39.6 % (15.0-51.0); MEAN CORPUSCULAR HEMOGLOBIN 28.1 pg (29.0-33.0); MEAN CORPUSCULAR HGB CONC 32.9 g/dl (32.0-37.0); MEAN CORPUSCULAR VOLUME 85.5 fl (82.0-101.0); MEAN PLATELET VOLUME 8.2 fl (7.4-10.4); MONOCYTE # 0.3 10^3/ul (0.3-0.9); MONOCYTES % 6.4 % (0.0-11.0); NEUTROPHIL # 2.2 10^3/ul (1.6-7.5); NEUTROPHILS % 51.1 % (39.0-77.0); PLATELET COUNT 226 10^3/UL (140-415); RED BLOOD COUNT 3.38 10^6/ul (4.20-5.40); RED CELL DISTRIBUTION WIDTH 14.4 % (11.5-14.5)
[2018-11-10] MEDS: OXYCODONE/ACETAMINOPHEN (5/325) TAB PO (16:27)
[2018-11-10 16:35] LABS: ANION GAP 5 (5-13); BLOOD UREA NITROGEN 12 mg/dl (7-20); CALCIUM 8.7 mg/dl (8.4-10.2); CARBON DIOXIDE 30 mmol/L (21-31); CHLORIDE 101 mmol/L (97-110); CREATINE KINASE 116 IU/L (23-200); CREATININE 0.54 mg/dl (0.44-1.00); Estimated GFR > 60 mL/min (>60); GLUCOSE 91 mg/dl (70-220); POTASSIUM 3.6 mmol/L (3.5-5.1); SODIUM 136 mmol/L (135-144)
[2018-11-10 16:46] LABS: CK INDEX 1.5; CK-MB 1.76 ng/ml (0.0-2.4); TROPONIN-I < 0.012 ng/ml (0.000-0.120)
[2018-11-10] MEDS: morphine 2 MG INJ IV ×3 (17:06→22:32)
[2018-11-10] MEDS: ONDANSETRON 4 MG INJ IV (17:06)
[2018-11-10] MEDS ORDERED: NITROGLYCERIN (SL) 0.4 MG TAB SL (19:00)
[2018-11-10] MEDS: IBUPROFEN 600 MG TAB PO (19:00)
[2018-11-10] MEDS: ISOSORBIDE DINITRATE 10 MG TAB PO (21:00)
[2018-11-10 22:27] LABS: CREATINE KINASE 124 IU/L (23-200)
[2018-11-10 22:40] LABS: CK INDEX 1.5; CK-MB 1.92 ng/ml (0.0-2.4); TROPONIN-I < 0.012 ng/ml (0.000-0.120)
[2018-11-10] MEDS ORDERED: GLUCOSE GEL 15 GRAM TUBE BUCCAL (23:45)
[2018-11-10] MEDS ORDERED: GLUCOSE GEL 15 GRAM TUBE PO ×2 (23:45)
[2018-11-10] MEDS ORDERED: GLUCAGON 1 MG INJ IM (23:45)
[2018-11-10] MEDS ORDERED: DEXTROSE 50% 50 ML SYRINGE IV (23:45)
[2018-11-11] MEDS: ACCU-CHEK XX (02:00)
[2018-11-11] MEDS: morphine 2 MG INJ IV ×6 (02:42→22:30)
[2018-11-11] MEDS: ONDANSETRON 4 MG INJ IV (05:21)
[2018-11-11 07:14] LABS: TROPONIN-I < 0.012 ng/ml (0.000-0.120)
[2018-11-11] MEDS: INSULIN ASPART [NOVOLOG] 3 ML PEN SC ×4 (08:00→21:00)
[2018-11-11] MEDS: ISOSORBIDE DINITRATE 10 MG TAB PO ×3 (10:08→22:35)
[2018-11-11] MEDS: ASPIRIN (EC) 81 MG TAB PO (10:09)
[2018-11-11] MEDS: INSULIN GLARGINE [LANTus] (100 UNITS/ML) SYG SC (10:17)
[2018-11-11] MEDS: BACLOFEN 10 MG TAB PO ×3 (11:30→22:34)
[2018-11-11] MEDS: ENOXAPARIN 40 MG/0.4 ML SYG SC (12:50)
[2018-11-11] MEDS: GABAPENTIN 300 MG CAP PO ×2 (14:34→22:34)
[2018-11-11 15:29] LABS: TROPONIN-I < 0.012 ng/ml (0.000-0.120)
[2018-11-11 19:24] LABS: TROPONIN-I < 0.012 ng/ml (0.000-0.120)
[2018-11-11] MEDS: IBUPROFEN 400 MG TAB PO (22:36)
[2018-11-12] MEDS: ACCU-CHEK XX (01:49)
[2018-11-12] MEDS: morphine 2 MG INJ IV ×5 (02:35→20:06)
[2018-11-12] MEDS: PANTOPRAZOLE (EC) 40 MG TAB PO (06:00)
[2018-11-12 07:52] LABS: ADD MAN DIFF? NO
[2018-11-12 07:54] LABS: BASOPHIL # 0.1 10^3/ul (0.0-0.1); EOSINOPHILS # 0.1 10^3/ul (0.0-0.5); EOSINOPHILS % 1.5 % (0.0-7.0); HEMATOCRIT 26.9 % (37.0-47.0); LYMPHOCYTES # 1.4 10^3/ul (0.8-2.9); LYMPHOCYTES % 34.7 % (15.0-51.0); MEAN CORPUSCULAR HEMOGLOBIN 28.6 pg (29.0-33.0); MEAN CORPUSCULAR HGB CONC 33.5 g/dl (32.0-37.0); MEAN CORPUSCULAR VOLUME 85.4 fl (82.0-101.0); MONOCYTE # 0.3 10^3/ul (0.3-0.9); MONOCYTES % 7.2 % (0.0-11.0); NEUTROPHIL # 2.2 10^3/ul (1.6-7.5); NEUTROPHILS % 54.4 % (39.0-77.0); PLATELET COUNT 238 10^3/UL (140-415); RED BLOOD COUNT 3.15 10^6/ul (4.20-5.40); RED CELL DISTRIBUTION WIDTH 14.6 % (11.5-14.5)
[2018-11-12] MEDS: INSULIN ASPART [NOVOLOG] 3 ML PEN SC ×3 (08:00→18:00)
[2018-11-12] MEDS: INSULIN GLARGINE [LANTus] (100 UNITS/ML) SYG SC (08:00)
[2018-11-12 08:28] LABS: ANION GAP 3 (5-13); BLOOD UREA NITROGEN 14 mg/dl (7-20); CALCIUM 8.6 mg/dl (8.4-10.2); CARBON DIOXIDE 32 mmol/L (21-31); CHLORIDE 100 mmol/L (97-110); CREATININE 0.57 mg/dl (0.44-1.00); Estimated GFR > 60 mL/min (>60); GLUCOSE 66 mg/dl (70-220); POTASSIUM 3.9 mmol/L (3.5-5.1); SODIUM 135 mmol/L (135-144)
[2018-11-12] MEDS: DEXTROSE 50% 50 ML SYRINGE IV (09:10)
[2018-11-12] MEDS: BACLOFEN 10 MG TAB PO ×2 (09:20→20:07)
[2018-11-12] MEDS: ISOSORBIDE DINITRATE 10 MG TAB PO ×3 (09:20→20:07)
[2018-11-12] MEDS: IBUPROFEN 400 MG TAB PO ×2 (09:20→20:16)
[2018-11-12] MEDS: GABAPENTIN 300 MG CAP PO ×3 (09:21→20:06)
[2018-11-12] MEDS: ASPIRIN (EC) 81 MG TAB PO (09:21)
[2018-11-12] MEDS: ENOXAPARIN 40 MG/0.4 ML SYG SC (10:09)
[2018-11-12] MEDS: REGADENOSON 0.4 MG/5 ML SYG (13:05)
== END 2018-11-12 20:43 | disposition home health service (06) | DRG 206 ==
LOC: E/R 14:07 → 6WM 14:33
DX: M94.0 Chondrocostal junction syndrome [Tietze] (principal); G82.20 Paraplegia, unspecified; G65.0 Sequelae of Guillain-Barre syndrome; L89.152 Pressure ulcer of sacral region, stage 2; E11.42 Type 2 diabetes mellitus with diabetic polyneuropathy; D64.9 Anemia, unspecified; E78.5 Hyperlipidemia, unspecified; F11.24 Opioid dependence with opioid-induced mood disorder; G89.29 Other chronic pain; I10 Essential (primary) hypertension; R06.02 Shortness of breath; R32 Unspecified urinary incontinence; Z79.4 Long term (current) use of insulin; Z79.82 Long term (current) use of aspirin
CPT/HCPCS: 78452; 80048; 82550; 82553; 82962; 84484; 85025; 93005; 93017; 93306; 99285-25

== ENCOUNTER 2018-12-06 18:59 | Emergency (ER) | payer BC ==
[2018-12-06] MEDS: SOD CHLORIDE 0.9% 1,000 ML IV (19:52)
[2018-12-06] MEDS: ONDANSETRON 4 MG INJ IV ×2 (19:53→22:52)
[2018-12-06] MEDS: HYDROmorphONE 1 MG/ML SYG IV (19:53)
[2018-12-06 19:56] LABS: ADD MAN DIFF? NO
[2018-12-06 19:58] LABS: WHITE BLOOD COUNT 5.9 10^3/ul (4.8-10.8)
[2018-12-06 19:58] LABS: BASOPHIL # 0.1 10^3/ul (0.0-0.1); BASOPHILS % 0.8 % (0.0-2.0); EOSINOPHILS # 0.1 10^3/ul (0.0-0.5); EOSINOPHILS % 0.8 % (0.0-7.0); HEMATOCRIT 27.7 % (37.0-47.0); HEMOGLOBIN 9.3 g/dl (12.0-16.0); LYMPHOCYTES # 1.1 10^3/ul (0.8-2.9); LYMPHOCYTES % 18.2 % (15.0-51.0); MEAN CORPUSCULAR HEMOGLOBIN 28.4 pg (29.0-33.0); MEAN CORPUSCULAR HGB CONC 33.6 g/dl (32.0-37.0); MEAN CORPUSCULAR VOLUME 84.5 fl (82.0-101.0); MEAN PLATELET VOLUME 8.3 fl (7.4-10.4); MONOCYTE # 0.4 10^3/ul (0.3-0.9); MONOCYTES % 6.4 % (0.0-11.0); NEUTROPHIL # 4.3 10^3/ul (1.6-7.5); NEUTROPHILS % 73.1 % (39.0-77.0); PLATELET COUNT 238 10^3/UL (140-415); RED BLOOD COUNT 3.28 10^6/ul (4.20-5.40); RED CELL DISTRIBUTION WIDTH 14.1 % (11.5-14.5)
[2018-12-06 20:17] LABS: ALANINE AMINOTRANSFERASE 34 IU/L (13-69); ALBUMIN 3.5 g/dl (3.3-4.9); ALBUMIN/GLOBULIN RATIO 0.97; ALKALINE PHOSPHATASE 69 IU/L (42-121); ANION GAP 9 (5-13); ASPARTATE AMINO TRANSFERASE 36 IU/L (15-46); BILIRUBIN,INDIRECT 0.3 mg/dl (0-1.1); BILIRUBIN,TOTAL 0.3 mg/dl (0.2-1.3); BLOOD UREA NITROGEN 15 mg/dl (7-20); CALCIUM 8.7 mg/dl (8.4-10.2); CARBON DIOXIDE 25 mmol/L (21-31); CHLORIDE 98 mmol/L (97-110); CREATININE 0.44 mg/dl (0.44-1.00); Estimated GFR > 60 mL/min (>60); GLUCOSE 358 mg/dl (70-220); SODIUM 132 mmol/L (135-144); TOTAL PROTEIN 7.1 g/dl (6.1-8.1)
[2018-12-06 20:22] LABS: POTASSIUM 3.7 mmol/L (3.5-5.1)
[2018-12-06] MEDS: HYDROmorphONE 0.5 MG/0.5 ML SYG IV (22:53)
== END 2018-12-06 23:19 | disposition home or self-care (01) ==
LOC: E/R 18:59
DX: G89.4 Chronic pain syndrome (principal); I10 Essential (primary) hypertension; G61.0 Guillain-Barre syndrome; E11.65 Type 2 diabetes mellitus with hyperglycemia; Z79.4 Long term (current) use of insulin; Z79.82 Long term (current) use of aspirin
CPT/HCPCS: 80053; 85025; 96374; 96375; 96376; 99284-25

== ENCOUNTER 2018-12-07 10:59 | Emergency (ER) | payer BC ==
[2018-12-07] MEDS: HYDROmorphONE 2 MG/ML SYG IM (11:41)
== END 2018-12-07 14:15 | disposition home or self-care (01) ==
LOC: E/R 10:59
DX: M54.9 Dorsalgia, unspecified (principal); I10 Essential (primary) hypertension; Z79.4 Long term (current) use of insulin
CPT/HCPCS: 96372; 99284-25

== ENCOUNTER 2018-12-08 15:15 | Inpatient (IN) | payer BC ==
[2018-12-08] MEDS ORDERED: ONDANSETRON 4 MG INJ IV (16:30)
[2018-12-08] MEDS ORDERED: ACETAMINOPHEN 325 MG TAB PO (16:30)
[2018-12-08] MEDS ORDERED: GLUCOSE GEL 15 GRAM TUBE PO ×2 (17:00)
[2018-12-08] MEDS ORDERED: DEXTROSE 50% 50 ML SYRINGE IV ×2 (17:00)
[2018-12-08] MEDS ORDERED: GLUCAGON 1 MG INJ IM (17:00)
[2018-12-08] MEDS ORDERED: GLUCOSE GEL 15 GRAM TUBE BUCCAL (17:00)
[2018-12-08] MEDS: SOD CHLORIDE 0.9% 1,000 ML IV (17:18)
[2018-12-08] MEDS: HYDROmorphONE 0.5 MG/0.5 ML SYG IV ×2 (17:19→23:22)
[2018-12-08] MEDS: INSULIN ASPART [NOVOLOG] 3 ML PEN SC ×3 (17:55→21:00)
[2018-12-08] MEDS: BISACODYL (EC) 5 MG TAB PO ×2 (21:00→21:08)
[2018-12-08] MEDS: INSULIN GLARGINE [LANTus] (100 UNITS/ML) SYG SC (21:11)
[2018-12-08] MEDS ORDERED: INSULIN GLARGINE [LANTus] (100 UNITS/ML) SYG SC (22:00)
[2018-12-09] MEDS: ACCU-CHEK XX (02:00)
[2018-12-09 05:19] LABS: ADD MAN DIFF? NO
[2018-12-09] MEDS: HYDROmorphONE 0.5 MG/0.5 ML SYG IV ×4 (05:20→23:32)
[2018-12-09] MEDS: LEVOTHYROXINE 75 MCG TAB PO (05:20)
[2018-12-09 05:24] LABS: BASOPHIL # 0.1 10^3/ul (0.0-0.1); BASOPHILS % 1.4 % (0.0-2.0); EOSINOPHILS # 0.1 10^3/ul (0.0-0.5); EOSINOPHILS % 1.4 % (0.0-7.0); HEMOGLOBIN 10.2 g/dl (12.0-16.0); LYMPHOCYTES # 1.3 10^3/ul (0.8-2.9); LYMPHOCYTES % 26.6 % (15.0-51.0); MEAN CORPUSCULAR HEMOGLOBIN 28.4 pg (29.0-33.0); MEAN CORPUSCULAR VOLUME 83.6 fl (82.0-101.0); MEAN PLATELET VOLUME 8.6 fl (7.4-10.4); MONOCYTE # 0.4 10^3/ul (0.3-0.9); MONOCYTES % 7.3 % (0.0-11.0); NEUTROPHIL # 3.1 10^3/ul (1.6-7.5); NEUTROPHILS % 63.1 % (39.0-77.0); PLATELET COUNT 244 10^3/UL (140-415); RED BLOOD COUNT 3.59 10^6/ul (4.20-5.40); RED CELL DISTRIBUTION WIDTH 14.2 % (11.5-14.5)
[2018-12-09 06:04] LABS: ALANINE AMINOTRANSFERASE 31 IU/L (13-69); ALBUMIN 3.3 g/dl (3.3-4.9); ALBUMIN/GLOBULIN RATIO 0.97; ALKALINE PHOSPHATASE 67 IU/L (42-121); ANION GAP 8 (5-13); ASPARTATE AMINO TRANSFERASE 33 IU/L (15-46); BILIRUBIN,INDIRECT 0.5 mg/dl (0-1.1); BILIRUBIN,TOTAL 0.5 mg/dl (0.2-1.3); BLOOD UREA NITROGEN 12 mg/dl (7-20); CALCIUM 8.8 mg/dl (8.4-10.2); CARBON DIOXIDE 31 mmol/L (21-31); CHLORIDE 98 mmol/L (97-110); CREATININE 0.52 mg/dl (0.44-1.00); Estimated GFR > 60 mL/min (>60); GLUCOSE 87 mg/dl (70-220); POTASSIUM 3.8 mmol/L (3.5-5.1); SODIUM 137 mmol/L (135-144); TOTAL PROTEIN 6.7 g/dl (6.1-8.1)
[2018-12-09] MEDS: INSULIN ASPART [NOVOLOG] 3 ML PEN SC ×5 (09:26→20:27)
[2018-12-09] MEDS: CEFTRIAXONE 1 GM/50 ML (PMX) 50 ML IVPB (09:28)
[2018-12-09] MEDS: BISACODYL (EC) 5 MG TAB PO ×2 (09:28→20:27)
[2018-12-09] MEDS: ENOXAPARIN 40 MG/0.4 ML SYG SC (11:36)
[2018-12-09] MEDS: SOD CHLORIDE 0.9% 1,000 ML IV (16:33)
[2018-12-09] MEDS: INSULIN GLARGINE [LANTus] (100 UNITS/ML) SYG SC (20:31)
[2018-12-10] MEDS: ACCU-CHEK XX ×2 (01:22→20:44)
[2018-12-10 05:20] LABS: ADD MAN DIFF? NO
[2018-12-10 05:26] LABS: WHITE BLOOD COUNT 4.7 10^3/ul (4.8-10.8)
[2018-12-10 05:26] LABS: BASOPHIL # 0.1 10^3/ul (0.0-0.1); BASOPHILS % 1.3 % (0.0-2.0); EOSINOPHILS % 0.9 % (0.0-7.0); HEMATOCRIT 29.8 % (37.0-47.0); HEMOGLOBIN 10.1 g/dl (12.0-16.0); LYMPHOCYTES # 1.3 10^3/ul (0.8-2.9); LYMPHOCYTES % 28.5 % (15.0-51.0); MEAN CORPUSCULAR HEMOGLOBIN 28.1 pg (29.0-33.0); MEAN CORPUSCULAR HGB CONC 33.9 g/dl (32.0-37.0); MEAN PLATELET VOLUME 8.4 fl (7.4-10.4); MONOCYTE # 0.3 10^3/ul (0.3-0.9); MONOCYTES % 6.9 % (0.0-11.0); NEUTROPHIL # 2.9 10^3/ul (1.6-7.5); NEUTROPHILS % 62.2 % (39.0-77.0); PLATELET COUNT 253 10^3/UL (140-415); RED BLOOD COUNT 3.59 10^6/ul (4.20-5.40)
[2018-12-10] MEDS: LEVOTHYROXINE 75 MCG TAB PO (05:29)
[2018-12-10] MEDS: PANTOPRAZOLE (EC) 40 MG TAB PO (05:29)
[2018-12-10] MEDS: HYDROmorphONE 0.5 MG/0.5 ML SYG IV ×4 (05:29→23:01)
[2018-12-10 05:52] LABS: ANION GAP 8 (5-13); BLOOD UREA NITROGEN 11 mg/dl (7-20); CALCIUM 8.5 mg/dl (8.4-10.2); CARBON DIOXIDE 29 mmol/L (21-31); CHLORIDE 99 mmol/L (97-110); CREATININE 0.44 mg/dl (0.44-1.00); Estimated GFR > 60 mL/min (>60); GLUCOSE 60 mg/dl (70-220); POTASSIUM 3.3 mmol/L (3.5-5.1); SODIUM 136 mmol/L (135-144)
[2018-12-10] MEDS: INSULIN ASPART [NOVOLOG] 3 ML PEN SC ×4 (07:50→20:41)
[2018-12-10] MEDS: BISACODYL (EC) 5 MG TAB PO ×2 (09:01→20:41)
[2018-12-10] MEDS: CEFTRIAXONE 1 GM/50 ML (PMX) 50 ML IVPB (09:02)
[2018-12-10] MEDS: LOSARTAN 25 MG TAB PO (09:02)
[2018-12-10] MEDS: ENOXAPARIN 40 MG/0.4 ML SYG SC (09:03)
[2018-12-10] MEDS: POTASSIUM CHLORIDE (SR) 20 MEQ TAB PO (10:54)
[2018-12-10] MEDS: SOD CHLORIDE 0.9% 1,000 ML IV (16:00)
[2018-12-10] MEDS: INSULIN GLARGINE [LANTus] (100 UNITS/ML) SYG SC (20:43)
[2018-12-11] MEDS: HYDROmorphONE 0.5 MG/0.5 ML SYG IV ×2 (05:01→11:13)
[2018-12-11] MEDS: PANTOPRAZOLE (EC) 40 MG TAB PO (05:07)
[2018-12-11] MEDS: LEVOTHYROXINE 75 MCG TAB PO (05:07)
[2018-12-11] MEDS: INSULIN ASPART [NOVOLOG] 3 ML PEN SC ×4 (07:50→20:34)
[2018-12-11] MEDS: CEFTRIAXONE 1 GM/50 ML (PMX) 50 ML IVPB (08:31)
[2018-12-11] MEDS: BISACODYL (EC) 5 MG TAB PO ×2 (08:31→20:06)
[2018-12-11] MEDS: LOSARTAN 25 MG TAB PO (08:32)
[2018-12-11] MEDS: ENOXAPARIN 40 MG/0.4 ML SYG SC (08:37)
[2018-12-11] MEDS: traMADol 50 MG TAB PO ×2 (14:02→21:30)
[2018-12-11] MEDS: DIPHENHYDRAMINE 25 MG CAP PO (17:05)
[2018-12-11] MEDS: DIPHENHYDRAMINE 50 MG INJ IV (17:23)
[2018-12-11] MEDS: INSULIN GLARGINE [LANTus] (100 UNITS/ML) SYG SC (20:32)
[2018-12-11] MEDS: BISACODYL 10 MG SUPP PR (21:31)
== END 2018-12-11 21:50 | disposition home health service (06) | DRG 690 ==
LOC: MS1 15:15
PROVIDERS: Internal Medicine Nephrology
DX: N39.0 Urinary tract infection, site not specified (principal); E87.8 Other disorders of electrolyte and fluid balance, not elsewhere classified; E03.9 Hypothyroidism, unspecified; D64.9 Anemia, unspecified; I10 Essential (primary) hypertension; E11.9 Type 2 diabetes mellitus without complications; Z96.0 Presence of urogenital implants; F17.200 Nicotine dependence, unspecified, uncomplicated; Z86.31 Personal history of diabetic foot ulcer; Z87.01 Personal history of pneumonia (recurrent); Z86.59 Personal history of other mental and behavioral disorders; Z91.19 Patient's noncompliance with other medical treatment and regimen; Z88.6 Allergy status to analgesic agent; Z88.8 Allergy status to other drugs, medicaments and biological substances
CPT/HCPCS: 80048; 80053; 82962; 84443; 85025; 87086; 97163

== ENCOUNTER 2018-12-17 10:46 | Emergency (ER) | payer BC ==
[2018-12-17] MEDS: HYDROmorphONE 0.5 MG/0.5 ML SYG IM ×2 (11:21→13:09)
== END 2018-12-17 15:17 | disposition home or self-care (01) ==
LOC: E/R 10:46
DX: M54.5 Low back pain (principal); I10 Essential (primary) hypertension; E11.9 Type 2 diabetes mellitus without complications; Z79.4 Long term (current) use of insulin
CPT/HCPCS: 96372; 99284-25

== ENCOUNTER 2018-12-19 09:40 | Observation (INO) | payer BC | END 2018-12-19 14:20 | disposition home or self-care (01) | LOC: 5EC 09:40 | DX: G89.29 Other chronic pain (principal); M54.5 Low back pain; Z76.5 Malingerer [conscious simulation]; G61.0 Guillain-Barre syndrome; I10 Essential (primary) hypertension; E11.9 Type 2 diabetes mellitus without complications; E03.9 Hypothyroidism, unspecified; Z79.4 Long term (current) use of insulin; Z74.01 Bed confinement status | CPT/HCPCS: 99217; Z7500 ==

== ENCOUNTER 2019-01-11 12:33 | Emergency (ER) | payer BC ==
[2019-01-11] MEDS: HYDROmorphONE 0.5 MG/0.5 ML SYG IM (13:30)
== END 2019-01-11 16:21 | disposition home or self-care (01) ==
LOC: E/R 12:33
DX: G89.29 Other chronic pain (principal); I10 Essential (primary) hypertension; E11.9 Type 2 diabetes mellitus without complications; Z79.4 Long term (current) use of insulin
CPT/HCPCS: 96372; 99284-25

== ENCOUNTER 2019-01-25 04:42 | Emergency (ER) | payer BC ==
[2019-01-25] MEDS: HYDROmorphONE 2 MG/ML SYG IM (06:57)
== END 2019-01-25 10:56 | disposition home or self-care (01) ==
LOC: E/R 04:42
DX: M54.5 Low back pain (principal); I10 Essential (primary) hypertension; E11.9 Type 2 diabetes mellitus without complications; Z86.69 Personal history of other diseases of the nervous system and sense organs; Z79.4 Long term (current) use of insulin
CPT/HCPCS: 96372; 99284-25

== ENCOUNTER 2019-01-28 16:20 | Emergency (ER) | payer BC ==
[2019-01-28] MEDS: HYDROmorphONE 1 MG/ML SYG IM (19:44)
== END 2019-01-28 20:52 | disposition home or self-care (01) ==
LOC: E/R 16:20
DX: G89.4 Chronic pain syndrome (principal); I10 Essential (primary) hypertension; E11.9 Type 2 diabetes mellitus without complications; Z79.4 Long term (current) use of insulin
CPT/HCPCS: 51702; 96372; 99284-25